=== PATIENT | male | born 1970 | race Caucasian/White ===

== ENCOUNTER 2020-06-22 07:18 | Outpatient (REF) | payer MEDICAID, SELFPAY ==
[2020-06-22 11:27] LABS: Estimated Average Glucose 183 mg/dL
[2020-06-22 11:52] LABS: Anion Gap 13 (12-20); Blood Urea Nitrogen 44 mg/dL (9-16); Calcium 8.8 mg/dL (8.4-10.2); Carbon Dioxide 25 mmol/L (22-29); Chloride 103 mmol/L (96-108); Estimated Glomerular Filt Rate 40; Glucose Random 155 mg/dL (60-115); Potassium 5.2 mmol/l (3.3-5.1); Sodium 136 mmol/L (135-145)
[2020-06-22 11:59] LABS: Creatinine Urine 70.32 mg/dL; Microalbum/Creatinine Ratio Ur 409.5 ug/mg cr
== END 2020-06-22 07:19 | disposition home or self-care (01) ==
LOC: HO.HMGCLDS 07:18
PROVIDERS: PCP Internal Medicine; Visit Provider Internal Medicine
DX: I12.9 Hypertensive chronic kidney disease with stage 1 through stage 4 chronic kidney disease, or unspecified chronic kidney disease (principal); N18.9 Chronic kidney disease, unspecified; E11.22 Type 2 diabetes mellitus with diabetic chronic kidney disease
CPT/HCPCS: 80048; 82043; 83036

== ENCOUNTER 2020-06-29 14:14 | Outpatient (REF) | payer OTHER, SELFPAY | END 2020-06-29 14:15 | disposition home or self-care (01) | LOC: HO.SCI 14:14 | PROVIDERS: Visit Provider Internal Medicine | DX: Z20.828 Contact with and (suspected) exposure to other viral communicable diseases (principal) | CPT/HCPCS: C9803; U0003 ==

== ENCOUNTER 2020-09-20 06:00 | Outpatient (REF) | payer OTHER, SELFPAY ==
[2020-09-20 11:19] LABS: MANUAL DIFF FLAG NO
[2020-09-20 11:34] LABS: Basophils Absolute Auto 0.1 X10*3/uL (0.0-0.2); Basophils Percent Auto 1.7 % (0-2); Eosinophils Absolute Auto 0.4 X10*3/uL (0.0-0.4); Eosinophils Percent Auto 6.9 % (0-4); Hematocrit 42.7 % (42-52); Hemoglobin 14.4 g/dl (14.0-18.0); Imm Gran Abs Auto 0.05 X10*3/uL (0.00-0.03); Imm Gran Pct Auto 0.9 % (0.0-0.4); Lymphocytes Absolute Auto 1.2 X10*3/uL (1.2-4.9); Lymphocytes Percent Auto 21.5 % (20-40); Mean Corpuscular HGB Conc 33.7 g/dl (31.0-36.0); Mean Corpuscular Hemoglobin 29.3 pg (27.0-33.0); Mean Platelet Volume 10.7 fL (9.4-12.4); Monocytes Absolute Auto 0.5 X10*3/uL (0.1-1.2); Monocytes Percent Auto 8.9 % (2-11); Neutrophils Absolute Auto 3.3 X10*3/uL (2.0-8.3); Neutrophils Percent Auto 60.1 % (45-73); Platelet Count 220 X10*3/uL (160-400); Red Blood Count 4.91 X10*6/uL (4.60-5.80); Red Cell Distribution Width 11.9 % (11.0-16.0); White Blood Count 5.4 X10*3/uL (4.8-10.8)
[2020-09-20 11:35] LABS: Estimated Average Glucose 189 mg/dL; Hemoglobin A1c % 8.2 %
[2020-09-20 11:55] LABS: Alanine Aminotransferase 22 U/L (0-40); Albumin Level 4.2 g/dL (3.5-5.0); Alkaline Phosphatase 87 U/L (39-117); Anion Gap 10 (12-20); Aspartate Amino Transferase 18 U/L (5-37); Bilirubin Total 0.6 mg/dL (0.0-1.0); Blood Urea Nitrogen 26 mg/dL (9-16); Calcium 8.6 mg/dL (8.4-10.2); Carbon Dioxide 30 mmol/L (22-29); Chloride 104 mmol/L (96-108); Cholesterol 157 mg/dL; Estimated Glomerular Filt Rate 45; Glucose Random 202 mg/dL (60-115); HDL Cholesterol 49 mg/dL; Iron 84 mcg/dL (45-160); LDL Cholesterol Calculated 98 mg/dl; Percent Iron Saturation 28 % (15-50); Potassium 4.8 mmol/L (3.3-5.1); Sodium 139 mmol/L (135-145); Total Iron Binding Capacity 296 mcg/dL (228-428); Total Protein 6.6 g/dL (6.5-8.0); Triglycerides 50 mg/dL; Unsaturated Iron Binding 212 ug/dL
[2020-09-20 12:16] LABS: Creatinine Urine 60.25 mg/dL; Microalbum/Creatinine Ratio Ur 336.9 ug/mg cr
[2020-09-20 12:18] LABS: Prostate Specific Antigen Scr 0.43 ng/mL (<0.05-4.0)
== END 2020-09-20 06:01 | disposition home or self-care (01) ==
LOC: HO.HMGCLDS 06:00
PROVIDERS: PCP Internal Medicine; Visit Provider Internal Medicine
DX: I12.9 Hypertensive chronic kidney disease with stage 1 through stage 4 chronic kidney disease, or unspecified chronic kidney disease (principal); E11.22 Type 2 diabetes mellitus with diabetic chronic kidney disease; N18.9 Chronic kidney disease, unspecified; Z12.5 Encounter for screening for malignant neoplasm of prostate
CPT/HCPCS: 36415; 80053; 80061; 82043; 83036; 83540; 84153; 85025

== ENCOUNTER 2020-11-13 08:12 | Outpatient (REF) | payer OTHER, SELFPAY ==
--- NOTE | ~2020-11-13 | US_ITS ---
EXAMINATION: US RETROPERITONEAL LIMITED (RENAL ONLY) CLINICAL INFORMATION: Chronic kidney disease. COMPARISON: None TECHNIQUE: Real-time imaging of the kidneys. FINDINGS: RIGHT KIDNEY: 10.0 x 6.7 x 6.6 cm (SAG x AP x TRV). The kidney is normal in size, contour, and echogenicity. Renal cortical thickness is normal. No calculi or focal parenchymal lesions. No hydronephrosis. LEFT KIDNEY: 10.9 x 5.6 x 5.9 cm (SAG x AP x TRV). The kidney is normal in size, contour, and echogenicity. Renal cortical thickness is normal. No calculi or focal parenchymal lesions. No hydronephrosis. US/US renal BI IMPRESSION: Unremarkable sonographic imaging of the kidneys. Specifically, no renal calculi or hydronephrosis bilaterally.
== END 2020-11-13 08:13 | disposition home or self-care (01) ==
LOC: HO.US 08:12
PROVIDERS: PCP Internal Medicine; Visit Provider Internal Medicine Hypertension Specialist
DX: N18.31 Chronic kidney disease, stage 3a (principal)
CPT/HCPCS: 76775

== ENCOUNTER 2021-01-01 06:16 | Outpatient (REF) | payer OTHER, SELFPAY ==
[2021-01-01 12:03] LABS: Estimated Average Glucose 200 mg/dL; Hemoglobin A1c % 8.6 %
[2021-01-01 12:07] LABS: Alanine Aminotransferase 25 U/L (0-40); Albumin Level 4.2 g/dL (3.5-5.0); Alkaline Phosphatase 93 U/L (39-117); Anion Gap 12 (12-20); Aspartate Amino Transferase 19 U/L (5-37); Bilirubin Total 0.7 mg/dL (0.0-1.0); Blood Urea Nitrogen 32 mg/dL (9-16); Calcium 8.9 mg/dL (8.4-10.2); Carbon Dioxide 26 mmol/L (22-29); Chloride 101 mmol/L (96-108); Estimated Glomerular Filt Rate 51; Glucose Random 227 mg/dL (60-115); Potassium 4.7 mmol/L (3.3-5.1); Sodium 134 mmol/L (135-145); Total Protein 6.5 g/dL (6.5-8.0)
[2021-01-01 12:11] LABS: Creatinine Urine 46.58 mg/dL; Microalbum/Creatinine Ratio Ur 210.3 ug/mg cr
== END 2021-01-01 06:17 | disposition home or self-care (01) ==
LOC: HO.HMGCLDS 06:16
PROVIDERS: PCP Internal Medicine; Visit Provider Internal Medicine
DX: I12.9 Hypertensive chronic kidney disease with stage 1 through stage 4 chronic kidney disease, or unspecified chronic kidney disease (principal); N18.9 Chronic kidney disease, unspecified; E11.22 Type 2 diabetes mellitus with diabetic chronic kidney disease
CPT/HCPCS: 36415; 80053; 82043; 83036

== ENCOUNTER 2021-03-28 06:04 | Outpatient (REF) | payer OTHER, SELFPAY ==
[2021-03-28 11:48] LABS: Anion Gap 15 (12-20); Blood Urea Nitrogen 35 mg/dL (9-16); Calcium 9.5 mg/dL (8.4-10.2); Carbon Dioxide 22 mmol/L (22-29); Chloride 107 mmol/L (96-108); Estimated Glomerular Filt Rate 46; Glucose Fasting 130 mg/dL (60-99); Potassium 4.4 mmol/L (3.3-5.1); Sodium 140 mmol/L (135-145)
[2021-03-28 12:05] LABS: Estimated Average Glucose 174 mg/dL; Hemoglobin A1c % 7.7 %
== END 2021-03-28 06:05 | disposition home or self-care (01) ==
LOC: HO.HMGCLDS 06:04
PROVIDERS: PCP Internal Medicine; Visit Provider Internal Medicine
DX: E11.22 Type 2 diabetes mellitus with diabetic chronic kidney disease (principal); I12.9 Hypertensive chronic kidney disease with stage 1 through stage 4 chronic kidney disease, or unspecified chronic kidney disease; N18.9 Chronic kidney disease, unspecified
CPT/HCPCS: 36415; 80048; 83036

== ENCOUNTER 2021-05-01 06:02 | Outpatient (REF) | payer OTHER, SELFPAY ==
[2021-05-01 11:58] LABS: Alanine Aminotransferase 32 U/L (0-40); Albumin Level 4.3 g/dL (3.5-5.0); Alkaline Phosphatase 85 U/L (39-117); Anion Gap 12 (12-20); Aspartate Amino Transferase 26 U/L (5-37); Bilirubin Total 0.6 mg/dL (0.0-1.0); Blood Urea Nitrogen 36 mg/dL (9-16); Calcium 9.6 mg/dL (8.4-10.2); Carbon Dioxide 24 mmol/L (22-29); Chloride 106 mmol/L (96-108); Estimated Glomerular Filt Rate 42; Glucose Random 169 mg/dL (60-115); Potassium 4.9 mmol/L (3.3-5.1); Sodium 137 mmol/L (135-145); Total Protein 6.7 g/dL (6.5-8.0)
[2021-05-01 12:10] LABS: Creatinine Urine 58.78 mg/dL; Protein/Creatinine Ratio, Ur 0.22 (<0.2); Total Protein Urine Random 13 mg/dL (<12)
== END 2021-05-01 06:03 | disposition home or self-care (01) ==
LOC: HO.HMGCLDS 06:02
PROVIDERS: PCP Internal Medicine; Visit Provider Internal Medicine Hypertension Specialist
DX: I12.9 Hypertensive chronic kidney disease with stage 1 through stage 4 chronic kidney disease, or unspecified chronic kidney disease (principal); N18.9 Chronic kidney disease, unspecified
CPT/HCPCS: 36415; 80053; 84156

== ENCOUNTER 2021-06-19 11:13 | Emergency (ER) | payer OTHER, SELFPAY ==
[2021-06-19 11:48] VITALS: BP 154/75; PULSE 65; RESP 16; TEMP 36.4; O2SAT 97; BMI 29.9
--- NOTE | 2021-06-19 13:30 | ED.EAR ---
HPI - Ear Problem General Chief complaint: Ear Problems Stated complaint: hearing loss Time Seen by Provider: 06/19/21 13:30 Source: patient Mode of arrival: ambulatory Limitations: no limitations History of Present Illness HPI Narrative: 51-year-old male came in for decreased hearing in the left ear. Patient has been wearing hearing aid in the left ear for about 10 years, had a recent hearing testing patient need knee you hearing aid, patient is scheduled to see an ENT doctor in few weeks, patient is complaining of decreased hearing in the left ear probably because it is blocked with wax. Patient otherwise declined any pain, no fever, no chills. Related Data Allergies Allergy/AdvReac Type Severity Reaction Status Date / Time No Known Allergies Allergy Unverified 04/26/20 15:08 [No Known Allergies*] Review of Systems Review of Systems: All other systems are reviewed and are negative Constitutional: Reports as per HPI and Reports no additional constitutional complaints Eyes: Reports as per HPI and Reports no additional eye complaints Reports system reviewed and no additional complaints, except as documented Cardiovascular: Reports as per HPI and Reports no additional cardiovascular complaints Respiratory: Reports as per HPI and Reports no additional respiratory complaints Gastrointestinal: Reports as per HPI and Reports no additional gastrointestinal complaints Genitourinary: Reports no additional female genitourinary complaints Musculoskeletal: Reports no additional musculoskeletal complaints Skin/Breast: Reports system reviewed and no additional complaints, except as docu Psychiatric: Reports no additional psychiatric complaints Endocrine: Reports no additional endocrine complaints Hematologic/Lymphatic: Reports no additional hematologic/lymphatic complaints Allergic/Immunologic: Reports no additional allergic/immunologic complaints Reports system reviewed and no additional complaints, except as documented and Reports Abnormal speech present [facility] Social History Social History Advance Directives: No Advance Directives Information Provided: Yes Physical Exam Vital Signs: Vital Signs: Last Vital Signs Temp 97.6 F 06/19/21 11:48 Pulse 65 06/19/21 11:48 Resp 16 06/19/21 11:48 BP 154/75 H 06/19/21 11:48 Pulse Ox 97 06/19/21 11:48 Body Mass Index 29.9 Vital signs have been reviewed as appeared to be correct. Blood pressure normal. Heart rate normal. Respiration rate normal. Temperature normal. Oxygen saturation normal. Appearance: Alert. Oriented X3. No acute distress. Head: Normal external exam. Normocephalic. Atraumatic. No Orsen signs noted. No raccoon eyes noted Eyes: PERRLA. EOMI. Conjunctiva and sclera normal. Eyelids normal. ENT: TM's Normal. Pharynx normal. Mild cerumen in a left auditory canal, Uvula midline. Moist mucous membranes. No trismus noted. No drooling noted. No muffled voice noted. Neck: Normal inspection. Neck supple. FROM. No adenopathy. Thyroid Normal. No meningeal signs. No neck mass noted. CVS: Normal heart rate and rhythm. Heart sound normal. No murmurs noted. Pulses normal throughout. Respiratory: No respiratory distress. Painless inspiration. Breath sounds normal. No wheezes/rales/rhonchi noted. Chest nontender. No accessory muscle usage noted or decreased air movement noted. Abdomen: Soft and nontender. Bowel sounds normal in all 4 quadrants. No distention noted. No organomegaly noted. No visible injury noted. Back: No CVA tenderness. Full range of motion noted. Skin: Skin warm and dry. Normal skin color. Normal skin turgor. No rashes/lesions/lacerations noted. Extremities: No lower extremity edema. Extremities exhibit normal range of motion. Extremities nontender. Neuro: Oriented X 3. Cranial nerve exam: II-XII are grossly intact No motor deficit. No sensory deficit. Reflexes normal. Course Course Course Narrative: 51-year-old male with a healing problem, patient wear hearing aid in the left ear for the past 9-10 years, patient had a recent hearing test and scheduled to see ENT doctor in 2 weeks for new hearing aid, patient had irrigation in the ED with slight improvement of his hearing with the hearing aid. Patient was instructed to follow-up with ENT as scheduled. Procedures Ear Wax Removal Left Ear: Results: Re-examined: some cerumen remains TM Examination: TM(s) intact, normal appearance Ear Canal Exam: atraumatic Patient Tolerated Procedure: no complications Complications: no problems Technique: ear canal irrigated Discharge Plan Discharge Clinical Impression: Cerumen impaction Patient Disposition: Home, Self-Care Instructions: Hearing Loss (ED) Additional Instructions: See your ENT doctor as scheduled. Referrals: Justin Estrada MD [Primary Care Provider] - 2 days
== END 2021-06-19 13:56 | disposition home or self-care (01) ==
PROVIDERS: Emergency Provider Emergency Medicine; PCP Internal Medicine
DX: H61.22 Impacted cerumen, left ear (principal)
CPT/HCPCS: 69209; 99283

== ENCOUNTER 2021-08-14 15:42 | Outpatient (REF) | payer OTHER, SELFPAY ==
[2021-08-14 16:09] LABS: COVID-19 Test Positive (Negative); IDNOW Serial# 9DD0AD1C
== END 2021-08-14 15:43 | disposition home or self-care (01) ==
LOC: HO.LNP 15:42
PROVIDERS: Visit Provider Internal Medicine
DX: R51.9 Headache, unspecified (principal); Z20.822 Contact with and (suspected) exposure to COVID-19
CPT/HCPCS: 87635

== ENCOUNTER 2021-09-03 06:02 | Outpatient (REF) | payer OTHER, SELFPAY ==
[2021-09-03 12:09] LABS: Creatinine Urine 74.39 mg/dL; Protein/Creatinine Ratio, Ur 0.51 (<0.2); Total Protein Urine Random 38 mg/dL (<12)
[2021-09-03 12:10] LABS: Alanine Aminotransferase 22 U/L (0-40); Albumin Level 4.1 g/dL (3.5-5.0); Alkaline Phosphatase 86 U/L (39-117); Anion Gap 11 (12-20); Aspartate Amino Transferase 16 U/L (5-37); Bilirubin Total 0.8 mg/dL (0.0-1.0); Blood Urea Nitrogen 25 mg/dL (9-16); Calcium 9.5 mg/dL (8.4-10.2); Carbon Dioxide 26 mmol/L (22-29); Chloride 107 mmol/L (96-108); Estimated Glomerular Filt Rate 46; Glucose Random 257 mg/dL (60-115); Potassium 4.6 mmol/L (3.3-5.1); Sodium 139 mmol/L (135-145); Total Protein 6.6 g/dL (6.5-8.0)
== END 2021-09-03 06:03 | disposition home or self-care (01) ==
LOC: HO.HMGCLDS 06:02
PROVIDERS: Visit Provider Internal Medicine Hypertension Specialist
DX: N18.32 Chronic kidney disease, stage 3b (principal)
CPT/HCPCS: 36415; 80053; 84156

== ENCOUNTER 2021-09-17 11:28 | Outpatient (REF) | payer OTHER, SELFPAY ==
[2021-09-17 13:59] LABS: MANUAL DIFF FLAG NO
[2021-09-17 14:05] LABS: Basophils Absolute Auto 0.1 X10*3/uL (0.0-0.2); Basophils Percent Auto 0.9 % (0-2); Eosinophils Absolute Auto 0.2 X10*3/uL (0.0-0.4); Eosinophils Percent Auto 2.6 % (0-4); Hematocrit 41.9 % (42.0-52.0); Hemoglobin 14.7 g/dl (14.0-18.0); Imm Gran Abs Auto 0.07 X10*3/uL (0.00-0.03); Imm Gran Pct Auto 0.9 % (0.0-0.4); Lymphocytes Absolute Auto 1.4 X10*3/uL (1.2-4.9); Lymphocytes Percent Auto 17.8 % (20-40); Mean Corpuscular HGB Conc 35.1 g/dl (31.0-36.0); Mean Corpuscular Hemoglobin 29.8 pg (27.0-33.0); Mean Corpuscular Volume 84.8 fL (80.0-98.0); Mean Platelet Volume 11.2 fL (9.4-12.4); Monocytes Absolute Auto 0.6 X10*3/uL (0.1-1.2); Neutrophils Absolute Auto 5.6 x10*3/uL (2.0-8.3); Neutrophils Percent Auto 69.8 % (45-73); Platelet Count 227 X10*3/uL (160-400); Red Blood Count 4.94 X10*6/uL (4.60-5.80); Red Cell Distribution Width 12.2 % (11.0-16.0)
[2021-09-17 14:13] LABS: Estimated Average Glucose 189 mg/dL; Hemoglobin A1c % 8.2 %
[2021-09-17 14:26] LABS: Alanine Aminotransferase 22 U/L (0-40); Albumin Level 4.3 g/dL (3.5-5.0); Alkaline Phosphatase 87 U/L (39-117); Anion Gap 13 (12-20); Aspartate Amino Transferase 19 U/L (5-37); Bilirubin Total 0.9 mg/dL (0.0-1.0); Blood Urea Nitrogen 30 mg/dL (9-16); Calcium 9.5 mg/dL (8.4-10.2); Carbon Dioxide 25 mmol/L (22-29); Chloride 104 mmol/L (96-108); Estimated Glomerular Filt Rate 42; Glucose Random 122 mg/dL (60-115); Potassium 4.4 mmol/L (3.3-5.1); Sodium 138 mmol/L (135-145); Total Protein 6.7 g/dL (6.5-8.0)
[2021-09-17 14:49] LABS: Creatinine Urine 64.03 mg/dL; Microalbum/Creatinine Ratio Ur 459.1 ug/mg cr
== END 2021-09-17 11:29 | disposition home or self-care (01) ==
LOC: HO.HMGCLDS 11:28
PROVIDERS: Visit Provider Internal Medicine
DX: I12.9 Hypertensive chronic kidney disease with stage 1 through stage 4 chronic kidney disease, or unspecified chronic kidney disease (principal); N18.9 Chronic kidney disease, unspecified; E11.22 Type 2 diabetes mellitus with diabetic chronic kidney disease
CPT/HCPCS: 36415; 80053; 82043; 83036; 85025

== ENCOUNTER 2021-12-25 06:06 | Outpatient (REF) | payer OTHER, SELFPAY ==
[2021-12-25 11:33] LABS: MANUAL DIFF FLAG NO
[2021-12-25 11:46] LABS: Basophils Absolute Auto 0.1 X10*3/uL (0.0-0.2); Basophils Percent Auto 1.2 % (0-2); Eosinophils Absolute Auto 0.3 X10*3/uL (0.0-0.4); Eosinophils Percent Auto 5.2 % (0-4); Hematocrit 40.7 % (42.0-52.0); Hemoglobin 14.2 g/dl (14.0-18.0); Imm Gran Abs Auto 0.05 X10*3/uL (0.00-0.03); Imm Gran Pct Auto 0.9 % (0.0-0.4); Lymphocytes Absolute Auto 1.1 X10*3/uL (1.2-4.9); Lymphocytes Percent Auto 18.6 % (20-40); Mean Corpuscular HGB Conc 34.9 g/dl (31.0-36.0); Mean Corpuscular Hemoglobin 29.7 pg (27.0-33.0); Mean Corpuscular Volume 85.1 fL (80.0-98.0); Mean Platelet Volume 10.8 fL (9.4-12.4); Monocytes Absolute Auto 0.5 X10*3/uL (0.1-1.2); Monocytes Percent Auto 8.7 % (2-11); Neutrophils Absolute Auto 3.8 x10*3/uL (2.0-8.3); Neutrophils Percent Auto 65.4 % (45-73); Platelet Count 201 X10*3/uL (160-400); Red Blood Count 4.78 X10*6/uL (4.60-5.80); Red Cell Distribution Width 12.3 % (11.0-16.0); White Blood Count 5.8 X10*3/uL (4.8-10.8)
[2021-12-25 11:50] LABS: Estimated Average Glucose 186 mg/dL; Hemoglobin A1c % 8.1 %
[2021-12-25 11:56] LABS: Alanine Aminotransferase 30 U/L (0-40); Albumin Level 4.2 g/dL (3.5-5.0); Alkaline Phosphatase 81 U/L (39-117); Anion Gap 11 (12-20); Aspartate Amino Transferase 22 U/L (5-37); Bilirubin Total 0.8 mg/dL (0.0-1.0); Blood Urea Nitrogen 26 mg/dL (9-16); Calcium 9.4 mg/dL (8.4-10.2); Carbon Dioxide 27 mmol/L (22-29); Chloride 102 mmol/L (96-108); Cholesterol 145 mg/dL; Estimated Glomerular Filt Rate 47; Glucose Random 173 mg/dL (60-115); HDL Cholesterol 52 mg/dL; LDL Cholesterol Calculated 81 mg/dl; Potassium 5.7 mmol/L (3.3-5.1); Sodium 134 mmol/L (135-145); Total Protein 6.6 g/dL (6.5-8.0); Triglycerides 63 mg/dL
[2021-12-25 12:11] LABS: Creatinine Urine 32.69 mg/dL; Microalbum/Creatinine Ratio Ur 776.9 ug/mg cr
[2021-12-25 12:20] LABS: Prostate Specific Antigen 0.32 ng/mL (<0.05-4.0)
== END 2021-12-25 06:07 | disposition home or self-care (01) ==
LOC: HO.HMGCLDS 06:06
PROVIDERS: Visit Provider Internal Medicine
DX: Z12.5 Encounter for screening for malignant neoplasm of prostate (principal); I12.9 Hypertensive chronic kidney disease with stage 1 through stage 4 chronic kidney disease, or unspecified chronic kidney disease; N18.9 Chronic kidney disease, unspecified; E11.22 Type 2 diabetes mellitus with diabetic chronic kidney disease; E78.00 Pure hypercholesterolemia, unspecified; R35.1 Nocturia
CPT/HCPCS: 36415; 80053; 80061; 82043; 83036; 84153; 85025

== ENCOUNTER 2022-03-21 13:58 | Outpatient (REF) | payer OTHER, SELFPAY ==
[2022-03-21 15:22] LABS: Alanine Aminotransferase 28 U/L (0-40); Albumin Level 4.4 g/dL (3.5-5.0); Alkaline Phosphatase 76 U/L (39-117); Anion Gap 16 (12-20); Aspartate Amino Transferase 24 U/L (5-37); Bilirubin Total 0.9 mg/dL (0.0-1.0); Blood Urea Nitrogen 35 mg/dL (9-16); Calcium 9.3 mg/dL (8.4-10.2); Carbon Dioxide 25 mmol/L (22-29); Chloride 102 mmol/L (96-108); Estimated Average Glucose 192 mg/dL; Estimated Glomerular Filt Rate 39; Glucose Random 164 mg/dL (60-115); Hemoglobin A1c % 8.3 %; Potassium 4.6 mmol/L (3.3-5.1); Sodium 138 mmol/L (135-145); Total Protein 6.7 g/dL (6.5-8.0)
== END 2022-03-21 13:59 | disposition home or self-care (01) ==
LOC: HO.LAB 13:58
PROVIDERS: PCP Internal Medicine; Visit Provider Internal Medicine
DX: I12.9 Hypertensive chronic kidney disease with stage 1 through stage 4 chronic kidney disease, or unspecified chronic kidney disease (principal); N18.9 Chronic kidney disease, unspecified; E11.22 Type 2 diabetes mellitus with diabetic chronic kidney disease
CPT/HCPCS: 36415; 80053; 83036

== ENCOUNTER 2022-04-22 06:59 | Outpatient (REF) | payer OTHER, SELFPAY ==
[2022-04-22 11:50] LABS: Alanine Aminotransferase 29 U/L (0-40); Albumin Level 4.1 g/dL (3.5-5.0); Alkaline Phosphatase 90 U/L (39-117); Anion Gap 13 (12-20); Aspartate Amino Transferase 21 U/L (5-37); Bilirubin Total 0.8 mg/dL (0.0-1.0); Blood Urea Nitrogen 34 mg/dL (9-16); Calcium 8.9 mg/dL (8.4-10.2); Carbon Dioxide 26 mmol/L (22-29); Chloride 101 mmol/L (96-108); Estimated Glomerular Filt Rate 40; Glucose Random 282 mg/dL (60-115); Hemoglobin 14.2 g/dl (14.0-18.0); Mean Corpuscular HGB Conc 35.5 g/dl (31.0-36.0); Mean Corpuscular Hemoglobin 29.8 pg (27.0-33.0); Mean Corpuscular Volume 83.9 fL (80.0-98.0); Mean Platelet Volume 10.7 fL (9.4-12.4); Platelet Count 208 X10*3/uL (160-400); Potassium 5.3 mmol/L (3.3-5.1); Red Blood Count 4.77 X10*6/uL (4.60-5.80); Red Cell Distribution Width 11.9 % (11.0-16.0); Sodium 135 mmol/L (135-145); Total Protein 6.5 g/dL (6.5-8.0); White Blood Count 6.7 X10*3/uL (4.8-10.8)
== END 2022-04-22 07:00 | disposition home or self-care (01) ==
LOC: HO.HMGCLDS 06:59
PROVIDERS: PCP Internal Medicine; Visit Provider Internal Medicine Hypertension Specialist
DX: E11.22 Type 2 diabetes mellitus with diabetic chronic kidney disease (principal); N18.31 Chronic kidney disease, stage 3a
CPT/HCPCS: 36415; 80053; 85027

== ENCOUNTER 2022-09-24 06:07 | Outpatient (REF) | payer OTHER, SELFPAY ==
[2022-09-24 12:12] LABS: Anion Gap 11 (12-20); Blood Urea Nitrogen 32 mg/dL (9-16); Calcium 9.1 mg/dL (8.4-10.2); Carbon Dioxide 24 mmol/L (22-29); Chloride 106 mmol/L (96-108); Estimated Glomerular Filt Rate 43; Glucose Random 115 mg/dL (60-115); Potassium 4.3 mmol/L (3.3-5.1); Sodium 137 mmol/L (135-145)
[2022-09-24 12:13] LABS: Creatinine Urine 28.39 mg/dL; Microalbum/Creatinine Ratio Ur 285.3 ug/mg cr
[2022-09-24 12:26] LABS: Estimated Average Glucose 197 mg/dL; Hemoglobin A1c % 8.5 %
== END 2022-09-24 06:08 | disposition home or self-care (01) ==
LOC: HO.HMGCLDS 06:07
PROVIDERS: Visit Provider Internal Medicine
DX: I12.9 Hypertensive chronic kidney disease with stage 1 through stage 4 chronic kidney disease, or unspecified chronic kidney disease (principal); E11.22 Type 2 diabetes mellitus with diabetic chronic kidney disease; N18.9 Chronic kidney disease, unspecified
CPT/HCPCS: 36415; 80048; 82043; 83036

== ENCOUNTER 2022-11-19 13:36 | Outpatient (REF) | payer OTHER, SELFPAY ==
--- NOTE | ~2022-11-19 | XR_ITS ---
EXAMINATION: XR FOOT, RIGHT CLINICAL INFORMATION: Pain COMPARISON: None available. TECHNIQUE: Three views of the right foot. FINDINGS: Atherosclerotic vascular calcification. No acute fracture or dislocation. Joint spaces are maintained. No joint effusion. XR/XR foot RT min 3V IMPRESSION: No acute osseous abnormality.
== END 2022-11-19 13:37 | disposition home or self-care (01) ==
LOC: HO.XRAY 13:36
PROVIDERS: PCP Internal Medicine; Visit Provider Internal Medicine
DX: M79.671 Pain in right foot (principal)
CPT/HCPCS: 73630

== ENCOUNTER 2022-12-23 06:01 | Outpatient (REF) | payer OTHER, SELFPAY ==
[2022-12-23 11:10] LABS: MANUAL DIFF FLAG NO
[2022-12-23 11:40] LABS: Basophils Absolute Auto 0.1 X10*3/uL (0.0-0.2); Basophils Percent Auto 1.4 % (0-2); Eosinophils Absolute Auto 0.3 X10*3/uL (0.0-0.4); Hematocrit 37.8 % (42.0-52.0); Hemoglobin 13.1 g/dl (14.0-18.0); Imm Gran Abs Auto 0.06 X10*3/uL (0.00-0.03); Imm Gran Pct Auto 1.1 % (0.0-0.4); Lymphocytes Percent Auto 18.3 % (20-40); Mean Corpuscular HGB Conc 34.7 g/dl (31.0-36.0); Mean Corpuscular Hemoglobin 29.6 pg (27.0-33.0); Mean Corpuscular Volume 85.3 fL (80.0-98.0); Mean Platelet Volume 10.5 fL (9.4-12.4); Monocytes Absolute Auto 0.5 X10*3/uL (0.1-1.2); Monocytes Percent Auto 9.5 % (2-11); Neutrophils Absolute Auto 3.6 x10*3/uL (2.0-8.3); Neutrophils Percent Auto 64.7 % (45-73); Platelet Count 210 X10*3/uL (160-400); Red Blood Count 4.43 X10*6/uL (4.60-5.80); Red Cell Distribution Width 12.3 % (11.0-16.0); White Blood Count 5.6 X10*3/uL (4.8-10.8)
[2022-12-23 11:47] LABS: Estimated Average Glucose 189 mg/dL; Hemoglobin A1c % 8.2 %
[2022-12-23 12:05] LABS: Alanine Aminotransferase 26 U/L (0-40); Alkaline Phosphatase 84 U/L (39-117); Anion Gap 14 (12-20); Aspartate Amino Transferase 20 U/L (5-37); Bilirubin Total 0.7 mg/dL (0.0-1.0); Blood Urea Nitrogen 30 mg/dL (9-16); Calcium 8.8 mg/dL (8.4-10.2); Carbon Dioxide 24 mmol/L (22-29); Chloride 103 mmol/L (96-108); Cholesterol 129 mg/dL; Estimated Glomerular Filt Rate 46; Glucose Fasting 133 mg/dL (60-99); HDL Cholesterol 46 mg/dL; LDL Cholesterol Calculated 73 mg/dl; Potassium 4.7 mmol/L (3.3-5.1); Prostate Specific Antigen 0.39 ng/mL (<0.05-4.0); Sodium 136 mmol/L (135-145); Triglycerides 50 mg/dL; Vitamin D 25-OH Total 57.6 ng/mL (>30)
[2022-12-23 12:18] LABS: Creatinine Urine 64.62 mg/dL; Microalbum/Creatinine Ratio Ur 170.2 ug/mg cr
[2022-12-24 13:14] LABS: Calcium (PTHI) 8.7 mg/dL (8.6-10.3); PTHI 46 pg/mL (16-77)
== END 2022-12-23 06:02 | disposition home or self-care (01) ==
LOC: HO.HMGCLDS 06:01
PROVIDERS: PCP Internal Medicine; Visit Provider Internal Medicine
DX: Z00.00 Encounter for general adult medical examination without abnormal findings (principal); Z12.5 Encounter for screening for malignant neoplasm of prostate; E11.9 Type 2 diabetes mellitus without complications
CPT/HCPCS: 36415; 80053; 80061; 82043; 82306; 83036; 83970; 84153; 85025

== ENCOUNTER 2023-02-26 06:09 | Outpatient (REF) | payer OTHER, SELFPAY ==
[2023-02-26 11:12] LABS: MANUAL DIFF FLAG NO
[2023-02-26 11:53] LABS: Basophils Absolute Auto 0.1 X10*3/uL (0.0-0.2); Basophils Percent Auto 1.4 % (0-2); Eosinophils Absolute Auto 0.3 X10*3/uL (0.0-0.4); Eosinophils Percent Auto 4.4 % (0-4); Hematocrit 43.4 % (42.0-52.0); Hemoglobin 14.8 g/dl (14.0-18.0); Imm Gran Abs Auto 0.07 X10*3/uL (0.00-0.03); Lymphocytes Absolute Auto 1.3 X10*3/uL (1.2-4.9); Lymphocytes Percent Auto 17.8 % (20-40); Mean Corpuscular HGB Conc 34.1 g/dl (31.0-36.0); Mean Corpuscular Hemoglobin 29.3 pg (27.0-33.0); Mean Corpuscular Volume 85.9 fL (80.0-98.0); Mean Platelet Volume 10.8 fL (9.4-12.4); Monocytes Absolute Auto 0.7 X10*3/uL (0.1-1.2); Monocytes Percent Auto 9.8 % (2-11); Neutrophils Absolute Auto 4.8 x10*3/uL (2.0-8.3); Neutrophils Percent Auto 65.6 % (45-73); Platelet Count 240 X10*3/uL (160-400); Red Blood Count 5.05 X10*6/uL (4.60-5.80); Red Cell Distribution Width 12.1 % (11.0-16.0); White Blood Count 7.3 X10*3/uL (4.8-10.8)
[2023-02-26 13:57] LABS: Anion Gap 13 (12-20); Blood Urea Nitrogen 36 mg/dL (9-16); Carbon Dioxide 27 mmol/L (22-29); Chloride 104 mmol/L (96-108); Estimated Glomerular Filt Rate 40; Glucose Random 159 mg/dL (60-115); Potassium 5.7 mmol/L (3.3-5.1); Sodium 138 mmol/L (135-145)
== END 2023-02-26 06:10 | disposition home or self-care (01) ==
LOC: HO.LAB 06:09
PROVIDERS: Visit Provider Internal Medicine Hypertension Specialist
DX: N18.32 Chronic kidney disease, stage 3b (principal)
CPT/HCPCS: 36415; 80048; 85025

== ENCOUNTER 2023-04-06 06:07 | Outpatient (REF) | payer OTHER, SELFPAY ==
[2023-04-06 12:10] LABS: Estimated Average Glucose 180 mg/dL; Hemoglobin A1c % 7.9 % (<6.0)
[2023-04-06 12:33] LABS: Alanine Aminotransferase 17 U/L (0-40); Albumin Level 4.1 g/dL (3.5-5.0); Alkaline Phosphatase 70 U/L (39-117); Anion Gap 10 (12-20); Aspartate Amino Transferase 16 U/L (5-37); Bilirubin Total 0.6 mg/dL (0.0-1.0); Blood Urea Nitrogen 28 mg/dL (9-16); Calcium 9.1 mg/dL (8.4-10.2); Carbon Dioxide 27 mmol/L (22-29); Chloride 106 mmol/L (96-108); Estimated Glomerular Filt Rate 49; Glucose Random 182 mg/dL (60-115); Potassium 4.6 mmol/L (3.3-5.1); Sodium 138 mmol/L (135-145); Total Protein 6.6 g/dL (6.5-8.0)
[2023-04-06 13:08] LABS: Creatinine Urine 51.38 mg/dL; Microalbum/Creatinine Ratio Ur 136.2 ug/mg cr (<30)
== END 2023-04-06 06:08 | disposition home or self-care (01) ==
LOC: HO.HMGCLDS 06:07
PROVIDERS: Absent Provider Internal Medicine Hypertension Specialist; PCP Internal Medicine; Visit Provider Internal Medicine
DX: E11.9 Type 2 diabetes mellitus without complications (principal); N18.9 Chronic kidney disease, unspecified
CPT/HCPCS: 36415; 80053; 82043; 83036

== ENCOUNTER 2023-04-16 08:52 | Outpatient (REF) | payer OTHER, SELFPAY ==
--- NOTE | ~2023-04-16 | XR_ITS ---
EXAMINATION: XR SHOULDER, LEFT CLINICAL INFORMATION: Left shoulder pain. COMPARISON: None available. TECHNIQUE: Four views of the left shoulder. FINDINGS: There is mild acromioclavicular osteoarthritis. Glenohumeral joint is well preserved. No fracture. Alignment is anatomic. Soft tissues are normal with no abnormal calcifications. XR/XR shoulder LT min 2V IMPRESSION: Mild acromioclavicular osteoarthritis. No acute fractures or malalignment.
== END 2023-04-16 08:53 | disposition home or self-care (01) ==
LOC: HO.XRAY 08:52
PROVIDERS: PCP Internal Medicine; Visit Provider Internal Medicine
DX: M25.512 Pain in left shoulder (principal)
CPT/HCPCS: 73030

== ENCOUNTER 2023-06-25 12:02 | Outpatient (REF) | payer OTHER, SELFPAY ==
--- NOTE | ~2023-06-25 | XR_ITS ---
EXAMINATION: XR CHEST 2 VIEWS CLINICAL INFORMATION: Cough and congestion. COMPARISON: Chest radiograph dated 10/19/2019. TECHNIQUE: Frontal and lateral views of the chest were obtained. FINDINGS: The heart, great vessels, pulmonary vasculature and mediastinum are normal. The lungs show no focal infiltrate, effusion or pneumothorax. There is no acute osseous abnormality. XR/XR chest 2V IMPRESSION: No active cardiopulmonary disease.
== END 2023-06-25 12:03 | disposition home or self-care (01) ==
LOC: HO.XRAY 12:02
PROVIDERS: PCP Internal Medicine; Visit Provider Internal Medicine
DX: R05.9 Cough, unspecified (principal)
CPT/HCPCS: 71046

== ENCOUNTER 2023-06-30 11:02 | Outpatient (AMB) | payer OTHER, SELFPAY ==
--- NOTE | 2023-06-30 11:20 | HO.NEPHOV_ITS ---
HPI HPI Comments History of Present Illness Details Juan José is a middle-aged man with a history of diabetes mellitus and CKD. From renal standpoint is doing very well. He has CKD with a baseline creatinine 1.6 mg/dL. Juan José has a history of diabetes mellitus for more than 10 years complicated by retinopathy. 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 History of hypertension for more than 10 years which has been well controlled as well. Renal ultrasonogram showed a large postvoid residual back in 2018. However repeat renal ultrasonogram was unremarkable in 2020. In 2019 lisinopril was decreased by 50% due to elevation in creatinine and relatively low blood pressure. Since then serum creatinine stable and blood pressure has been well controlled as well. Recently he was diagnosed with pneumonia and has completed a course of Zithromax. Today he has no cough no shortness of breath. In no specific complaints today. [facility] (Updated 06/30/23 @ 11:24 by Deedee Zavala MA) Alcohol intake: never Patient Tobacco Use Status: Never used Tobacco e-Cigarette/Vaping Use: Never Used Vital Signs 06/30/23 11:26 Height 5 ft 9 in Weight 185 lb BMI 27.3 BP 120/62 Blood Pressure Location Rt brachial Position Sitting Pulse 61 Pulse Source Pulse Oximeter Pulse Oximetry (%) 100 Physical Exam Vital Signs: Last Vital Signs Pulse 61 06/30/23 11:26 BP 120/62 06/30/23 11:26 Pulse Ox 100 06/30/23 11:26 BMI result Body Mass Index 27.3 Const General: comfortable Nutritional Appearance: well nourished Orientation/consciousness: patient oriented x3 HEENT Head: No normal to inspection Mouth: moist mucous membranes Neck Neck: Yes supple and Yes no JVD Resp Auscultation: clear to auscultation bilaterally, no rales and rub present Cardio Jugular venous distension: no JVD Palpation: no palpable S3 and no palpable S4 Heart sounds: no rubs GI Palpation (GI): Soft to palpation and nontender Percussion: No Fluid wave present General: Yes no CVA tenderness Back/Spine/Pelvis Back: no CVA tenderness Skin General skin exam: no rashes or lesions noted Neuro General: patient oriented x3 Extrem General: Yes no pedal edema and No clubbing Results Reviewed Results Reviewed: All labs was reviewed Assessment & Plan Assessment & Plan (1) CKD (chronic kidney disease) stage 3, GFR 30-59 ml/min: Code(s): N18.30 - Chronic kidney disease, stage 3 unspecified Plan: CKD 3 in a setting of longstanding diabetes mellitus hypertension. Renal function stable at this time. Goal is to slow the proximal disease. Continue with Shravan inhibitor for renal protection. He will benefit from an SGLT 2 inhibitor. (2) HTN (hypertension): Code(s): I10 - Essential (primary) hypertension Plan: Blood pressure is well controlled. Continue with current antihypertensive regimen. Discussed low-sodium diet. (3) Diabetes mellitus with chronic kidney disease: Code(s): E11.22 - Type 2 diabetes mellitus with diabetic chronic kidney disease Plan: Goal is to maintain A1c less than 7%. Again we discuss the importance of diet (4) Hyperkalemia: Code(s): E87.5 - Hyperkalemia Plan: History of hyperkalemia in the setting of chronic kidney disease and continues of Shravan inhibitor. After lowering the reason potassium potassium has improved. He should stay on low-potassium diet. I will recheck the serum aldolase today Orders: Orders Blood Urea Nitrogen Today E11.22 - Type 2 diabetes mellitus with diabetic chronic kidney disease, I10 - Essential (primary) hypertension Calcium Today E11.22 - Type 2 diabetes mellitus with diabetic chronic kidney disease, I10 - Essential (primary) hypertension Electrolytes Today E11.22 - Type 2 diabetes mellitus with diabetic chronic kidney disease, I10 - Essential (primary) hypertension Creatinine Today E11.22 - Type 2 diabetes mellitus with diabetic chronic kidney disease, I10 - Essential (primary) hypertension Coding Level of Care Code Est Pt Level 4 (67992) Diagnoses CKD (chronic kidney disease) stage 3, GFR 30-59 ml/min N18.30 HTN (hypertension) I10 Diabetes mellitus with chronic kidney disease E11.22 Hyperkalemia E87.5
[2023-06-30 11:26] VITALS: BP 120/62; PULSE 61; O2SAT 100; BMI 27.3
== END 2023-06-30 11:44 | disposition home or self-care (01) ==
PROVIDERS: PCP Internal Medicine; Visit Provider Internal Medicine Hypertension Specialist
DX: N18.30 Chronic kidney disease, stage 3 unspecified (principal); I12.9 Hypertensive chronic kidney disease with stage 1 through stage 4 chronic kidney disease, or unspecified chronic kidney disease; E11.22 Type 2 diabetes mellitus with diabetic chronic kidney disease; E87.5 Hyperkalemia
CPT/HCPCS: 99214

== ENCOUNTER → 2023-06-30 11:02 | Outpatient (BNVA) | payer OTHER, SELFPAY | PROVIDERS: PCP Internal Medicine; Visit Provider Internal Medicine Hypertension Specialist | DX: E11.22 Type 2 diabetes mellitus with diabetic chronic kidney disease (principal); E11.319 Type 2 diabetes mellitus with unspecified diabetic retinopathy without macular edema; E11.65 Type 2 diabetes mellitus with hyperglycemia; I12.9 Hypertensive chronic kidney disease with stage 1 through stage 4 chronic kidney disease, or unspecified chronic kidney disease; N18.30 Chronic kidney disease, stage 3 unspecified; H54.61 Unqualified visual loss, right eye, normal vision left eye; E78.5 Hyperlipidemia, unspecified; Z79.4 Long term (current) use of insulin | CPT/HCPCS: 99212 ==

== ENCOUNTER 2023-06-30 11:52 | Outpatient (REF) | payer OTHER, SELFPAY ==
[2023-06-30 13:33] LABS: Anion Gap 11 (12-20); Blood Urea Nitrogen 37 mg/dL (9-16); Calcium 9.4 mg/dL (8.4-10.2); Carbon Dioxide 27 mmol/L (22-29); Chloride 102 mmol/L (96-108); Estimated Glomerular Filt Rate 44; Potassium 4.6 mmol/L (3.3-5.1); Sodium 135 mmol/L (135-145)
== END 2023-06-30 11:53 | disposition home or self-care (01) ==
LOC: HO.10HDL 11:52
PROVIDERS: Visit Provider Internal Medicine Hypertension Specialist
DX: I12.9 Hypertensive chronic kidney disease with stage 1 through stage 4 chronic kidney disease, or unspecified chronic kidney disease (principal); E11.22 Type 2 diabetes mellitus with diabetic chronic kidney disease; N18.9 Chronic kidney disease, unspecified
CPT/HCPCS: 36415; 80051; 82310; 82565; 84520

== ENCOUNTER 2023-09-17 06:03 | Outpatient (REF) | payer OTHER, SELFPAY ==
[2023-09-17 11:43] LABS: MANUAL DIFF FLAG NO
[2023-09-17 11:46] LABS: Appearance Urine Clear; Color Urine Yellow; Glucose Urine UA Negative (Negative); Leukocyte Esterase Urine Negative (Negative); Nitrite Urine Negative (Negative); PH 5.5 (5.0-9.0); Urine Blood Negative (Negative); Urine Ketones Negative (Negative); Urine Protein Negative (Neg-Trace)
[2023-09-17 11:59] LABS: Basophils Absolute Auto 0.1 X10*3/uL (0.0-0.2); Basophils Percent Auto 1.7 % (0-2); Eosinophils Absolute Auto 0.4 X10*3/uL (0.0-0.4); Eosinophils Percent Auto 6.2 % (0-4); Hematocrit 41.5 % (42.0-52.0); Hemoglobin 14.6 g/dl (14.0-18.0); Imm Gran Abs Auto 0.06 X10*3/uL (0.00-0.03); Lymphocytes Absolute Auto 1.2 X10*3/uL (1.2-4.9); Lymphocytes Percent Auto 19.9 % (20-40); Mean Corpuscular HGB Conc 35.2 g/dl (31.0-36.0); Mean Corpuscular Hemoglobin 29.9 pg (27.0-33.0); Mean Platelet Volume 10.4 fL (9.4-12.4); Monocytes Absolute Auto 0.5 X10*3/uL (0.1-1.2); Monocytes Percent Auto 7.8 % (2-11); Neutrophils Absolute Auto 3.7 x10*3/uL (2.0-8.3); Neutrophils Percent Auto 63.4 % (45-73); Platelet Count 234 X10*3/uL (160-400); Red Blood Count 4.88 X10*6/uL (4.60-5.80); Red Cell Distribution Width 12.5 % (11.0-16.0); White Blood Count 5.8 X10*3/uL (4.8-10.8)
[2023-09-17 12:05] LABS: Estimated Average Glucose 180 mg/dL; Hemoglobin A1c % 7.9 % (<6.0)
[2023-09-17 12:24] LABS: Prostate Specific Antigen 0.31 ng/mL (<0.05-4.0)
[2023-09-17 12:26] LABS: Alanine Aminotransferase 29 U/L (0-40); Albumin Level 4.4 g/dL (3.5-5.0); Alkaline Phosphatase 87 U/L (39-117); Anion Gap 14 (12-20); Aspartate Amino Transferase 20 U/L (5-37); Bilirubin Total 0.7 mg/dL (0.0-1.0); Blood Urea Nitrogen 38 mg/dL (9-16); Calcium 9.8 mg/dL (8.4-10.2); Carbon Dioxide 27 mmol/L (22-29); Chloride 101 mmol/L (96-108); Cholesterol 152 mg/dL (<200); Estimated Glomerular Filt Rate 45; Glucose Fasting 156 mg/dL (60-99); HDL Cholesterol 61 mg/dL (>40); LDL Cholesterol Calculated 81 mg/dL (<100); Sodium 137 mmol/L (135-145); Total Protein 7.1 g/dL (6.5-8.0); Triglycerides 53 mg/dL (<150)
== END 2023-09-17 06:04 | disposition home or self-care (01) ==
LOC: HO.HMGCLDS 06:03
PROVIDERS: PCP Internal Medicine; Visit Provider Internal Medicine
DX: I12.9 Hypertensive chronic kidney disease with stage 1 through stage 4 chronic kidney disease, or unspecified chronic kidney disease (principal); E11.22 Type 2 diabetes mellitus with diabetic chronic kidney disease; N18.9 Chronic kidney disease, unspecified; E78.00 Pure hypercholesterolemia, unspecified
CPT/HCPCS: 36415; 80053; 80061; 81003; 82043; 82570; 83036; 84153; 85025

== ENCOUNTER 2023-10-20 10:34 | Outpatient (AMB) | payer OTHER, SELFPAY ==
--- NOTE | 2023-10-20 10:39 | HO.NEPHOV_ITS ---
HPI HPI Comments History of Present Illness Details Juan José is a middle-aged man with a history of diabetes mellitus and CKD. From renal standpoint is doing very well. He has CKD with a baseline creatinine 1.6 mg/dL. Juan José has a history of diabetes mellitus for more than 10 years complicated by retinopathy. 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 History of hypertension for more than 10 years which has been well controlled as well. Renal ultrasonogram showed a large postvoid residual back in 2018. However repeat renal ultrasonogram was unremarkable in 2020. In 2019 lisinopril was decreased by 50% due to elevation in creatinine and relatively low blood pressure. Since then serum creatinine stable and blood pressure has been well controlled as well. Today he has no cough no shortness of breath. In no specific complaints today. Waiting for cardiac evalaution [facility] Social History Alcohol intake: never Patient Tobacco Use Status: Never used Tobacco e-Cigarette/Vaping Use: Never Used Vital Signs 10/20/23 10:40 Height 5 ft 9 in Weight 185 lb BMI 27.3 BP 108/60 Blood Pressure Location Rt femoral Position Sitting Pulse 87 Pulse Source Pulse Oximeter Pulse Oximetry (%) 97 Oxygen Delivery Method Room Air Physical Exam Vital Signs: Last Vital Signs Pulse 87 10/20/23 10:40 BP 108/60 10/20/23 10:40 Pulse Ox 97 10/20/23 10:40 Oxygen Delivery Method Room Air 10/20/23 10:40 BMI result Body Mass Index 27.3 Const General: comfortable Nutritional Appearance: well nourished Orientation/consciousness: patient oriented x3 HEENT Head: No normal to inspection Mouth: moist mucous membranes Neck Neck: Yes supple and Yes no JVD Resp Auscultation: clear to auscultation bilaterally, no rales and rub present Cardio Jugular venous distension: no JVD Palpation: no palpable S3 and no palpable S4 Heart sounds: no rubs GI Palpation (GI): Soft to palpation and nontender Percussion: No Fluid wave present General: Yes no CVA tenderness Back/Spine/Pelvis Back: no CVA tenderness Skin General skin exam: no rashes or lesions noted Neuro General: patient oriented x3 Extrem General: Yes no pedal edema and No clubbing Assessment & Plan Assessment & Plan (1) CKD (chronic kidney disease) stage 3, GFR 30-59 ml/min: Code(s): N18.30 - Chronic kidney disease, stage 3 unspecified Plan: CKD 3 in a setting of longstanding diabetes mellitus hypertension. Renal function stable at this time. Goal is to slow the proximal disease. Continue with Shravan inhibitor for renal protection. He will benefit from an SGLT 2 inhibitor. (2) HTN (hypertension): Code(s): I10 - Essential (primary) hypertension Plan: Blood pressure is well controlled. Continue with current antihypertensive regimen. Discussed low-sodium diet. (3) Diabetes mellitus with chronic kidney disease: Code(s): E11.22 - Type 2 diabetes mellitus with diabetic chronic kidney disease Plan: Goal is to maintain A1c less than 7%. Again we discuss the importance of diet (4) Hyperkalemia: Code(s): E87.5 - Hyperkalemia Plan: History of hyperkalemia in the setting of chronic kidney disease and continues of Shravan inhibitor. potassium potassium has improved. He should stay on low-potassium diet. Coding Level of Care Code Est Pt Level 4 (02369) Diagnoses CKD (chronic kidney disease) stage 3, GFR 30-59 ml/min N18.30 HTN (hypertension) I10 Diabetes mellitus with chronic kidney disease E11.22 Hyperkalemia E87.5 Results Reviewed Nephrology Results: Hgb 14.6 g/dl (14.0-18.0) 09/17/23 WBC 5.8 X10*3/uL (4.8-10.8) 09/17/23 Plt Count 234 X10*3/uL (160-400) 09/17/23 Sodium 137 mmol/L (135-145) 09/17/23 Potassium 5.0 mmol/L (3.3-5.1) 09/17/23 Chloride 101 mmol/L (96-108) 09/17/23 Carbon Dioxide 27 mmol/L (22-29) 09/17/23 BUN 38 mg/dL (9-16) H 09/17/23 Creatinine 1.60 mg/dL (0.5-1.4) H 09/17/23 Calcium 9.8 mg/dL (8.4-10.2) 09/17/23 PTH Intact 46 pg/mL (16-77) 12/23/22 Urine Protein Negative mg/dL (Neg-Trace) 09/17/23 Urine Creatinine 34.00 mg/dL 09/17/23
[2023-10-20 10:40] VITALS: BP 108/60; PULSE 87; O2SAT 97; BMI 27.3
== END 2023-10-20 10:55 | disposition home or self-care (01) ==
PROVIDERS: PCP Internal Medicine; Visit Provider Internal Medicine Hypertension Specialist
DX: I12.9 Hypertensive chronic kidney disease with stage 1 through stage 4 chronic kidney disease, or unspecified chronic kidney disease (principal); E11.22 Type 2 diabetes mellitus with diabetic chronic kidney disease; N18.30 Chronic kidney disease, stage 3 unspecified; E87.5 Hyperkalemia
CPT/HCPCS: 99214

== ENCOUNTER → 2023-10-20 10:34 | Outpatient (BNVA) | payer OTHER, SELFPAY | PROVIDERS: PCP Internal Medicine; Visit Provider Internal Medicine Hypertension Specialist | DX: I12.9 Hypertensive chronic kidney disease with stage 1 through stage 4 chronic kidney disease, or unspecified chronic kidney disease (principal); E11.22 Type 2 diabetes mellitus with diabetic chronic kidney disease; N18.30 Chronic kidney disease, stage 3 unspecified; E87.5 Hyperkalemia | CPT/HCPCS: 99212 ==

== ENCOUNTER 2023-12-08 09:30 | Outpatient (AMB) | payer MEDICARE, MEDICAID, SELFPAY ==
[2023-12-08 09:56] VITALS: BP 120/70; PULSE 56; BMI 27.3
--- NOTE | 2023-12-08 09:56 | A.OFFVIS_ITS ---
Vital Signs 12/08/23 09:56 Height 5 ft 9 in Weight 185 lb 3.013 oz BMI 27.3 BP 120/70 Blood Pressure Location Lt brachial Position Sitting Pulse 56 Intake Visit Reasons: [employer]/Dr. Estrada/Palpitations, abn EKG Intake Note: New patient dx abn ekg c/o sob and abnormal heart beat Um Nurse Required: No Allergies No Known Allergies [No Known Allergies*] Allergy (Verified 10/20/23 10:41) Medication List - Last Reconciled 12/08/23 by Mani Doe MD amlodipine 10 mg PO DAILY atorvastatin 20 mg PO DAILY cholecalciferol (vitamin D3) 125 mcg PO DAILY glipizide 5 mg PO DAILY lisinopril 10 mg PO DAILY HPI Comments Details: Thank you for referring Tc in cardiology consultation today for exertional shortness of breath. He has a pleasant 53-year-old male with longstanding diabetes for about 15 years still uncontrolled with hemoglobin A1c at 7.9%, longstanding hypertension. For the last 6 months he said he has been noticing exertional shortness of breath. This happens usually when he walks longer distance at work. He denies any associated chest pain or pressure. He denies any chest tightness. Her says sometimes he feels pounding in his chest with exercise. He has had no prolonged irregular heartbeat or palpitations. No lightheadedness, syncope. Recently was noted to have irregular heartbeat. EKG done today shows PACs. He said his brother has atrial fibrillation. He has never had any prior cardiac issues including no prior history of heart attacks, coronary artery disease or vascular events. He is currently on statin therapy. He denies smoking. [facility] Social History Alcohol intake: never Patient Tobacco Use Status: Never used Tobacco e-Cigarette/Vaping Use: Never Used Review of Systems Const Denies chills, Denies daytime sleepiness, Denies fatigue, Denies fever(s), Denies frequent falls, Denies poor appetite, Denies snoring, Denies stops breathing during sleep, Denies weakness, Denies weight gain and Denies weight loss Eyes Denies loss of vision ENT Denies dizziness and Denies hearing loss Card Denies chest pain, Denies claudication, Denies leg edema, Denies lightheadedness, Denies palpitations, Denies dyspnea, Denies dyspnea on exertion and Denies orthopnea Resp Denies cough, Denies excessive phlegm production, Denies dyspnea, Denies dyspnea on exertion, Denies snoring and Denies wheezing GI Denies abdominal pain, Denies hematochezia, Denies change in bowel habits, Denies nausea and Denies vomiting Denies dysuria and Denies urinary frequency Musc Denies arthralgias, Denies muscle weakness, Denies numbness and Denies other (frequent falls) Skin/Breast Denies nail changes and Denies rash Neuro Denies Abnormal speech present, Denies dizziness, Denies frequent falls, Denies loss of vision, Denies memory loss, Denies numbness and Denies weakness Psych Denies depression and Denies memory loss Endo Denies fatigue and Denies palpitations Jakub/Lymph Reports easy bruising and Reports other (anemia) Aller/Immun Denies wheezing Physical Exam Vital Signs: Last Vital Signs Pulse 56 12/08/23 09:56 BP 120/70 12/08/23 09:56 BMI result Body Mass Index 27.3 Const General: cooperative, comfortable, no acute distress, well developed, alert and awake Nutritional Appearance: well nourished Orientation/consciousness: patient oriented x3 Limitations: no limitations HEENT Head: Yes normocephalic and Yes atraumatic Eyes General: dysmorphic (Right eye is atrophic) Neck Neck: Yes trachea midline, Yes supple and Yes no JVD Carotids: no bruits Resp Effort & Inspection: normal respiratory effort Auscultation: clear to auscultation bilaterally Cardio Jugular venous distension: no JVD Palpation: normal PMI Rate: regular rate Rhythm: abnormal rhythm with ectopic beats Heart sounds: S1 normal heart sound present, S2 normal heart sound present, no click, no gallops and no murmurs GI Auscultation: normal bowel sounds Skin General skin exam: no rashes or lesions noted Neuro General: patient oriented x3 and no focal motor deficits Speech: No Abnormal speech present Extrem General: Yes no clubbing, cyanosis or edema Office Procedures EKG Details: EKG shows sinus bradycardia with PACs otherwise no significant abnormalities. [id number], Complete Assessment & Plan Assessment & Plan (1) SOB (shortness of breath) on exertion: Code(s): R06.02 - Shortness of breath Category: Medical Plan: Shortness of breath on exertion in this middle-aged man of recent onset without any signs or symptoms of heart failure. He is multiple risk factors for obstructive coronary artery disease with longstanding uncontrolled diabetes, hypertension as well as hyperlipidemia. He also has underlying chronic kidney disease which increase risk of developing chronic cardiovascular issues. Would suggest him to have exercise myocardial perfusion imaging to further evaluate for myocardial ischemia. Also suggest an echocardiogram to evaluate LV systolic and diastolic function to evaluate for hypertensive heart disease and evaluate function pulmonary hypertension. These tests will be scheduled in near future. Further treatment based on the findings. Continue aggressive vascular risk factor modification with goal hemoglobin A1c less than 7%. Goal LDL less than 70 mg/dL. Blood pressure is currently well optimized. Advised to maintain heart healthy lifestyle. (2) Palpitations: Code(s): R00.2 - Palpitations Category: Medical Plan: Intermittent symptoms of palpitations patient noted to have PACs with brother having atrial fibrillation. Will obtain a 7 day Holter monitor to further assess for any significant atrial arrhythmias including atrial fibrillation that may change his management plan. This was discussed with him. He understands agrees. Avoidance of stimulants was discussed. Will follow up in the clinic in 6 weeks time, sooner p.r.n.. Thank you for allowing me to partake in his care Coding Level of Care Code New Pt Level 4 (98659) Diagnoses SOB (shortness of breath) on exertion R06.02 Palpitations R00.2 CPT Codes EKG - CPT: [id number], Complete ([id number])
== END 2023-12-08 10:56 | disposition home or self-care (01) ==
PROVIDERS: PCP Internal Medicine; Visit Provider Internal Medicine Cardiovascular Disease
DX: R06.02 Shortness of breath (principal); R00.2 Palpitations
CPT/HCPCS: 93010; 99204

== ENCOUNTER → 2023-12-08 09:30 | Outpatient (BNVA) | payer MEDICARE, MEDICAID, SELFPAY | PROVIDERS: PCP Internal Medicine; Visit Provider Internal Medicine Cardiovascular Disease | DX: R00.2 Palpitations (principal); R06.02 Shortness of breath; E11.9 Type 2 diabetes mellitus without complications; Z79.899 Other long term (current) drug therapy | CPT/HCPCS: 93005; 99202 ==

== ENCOUNTER → 2024-01-25 07:30 | Outpatient (REF) | payer MEDICARE, MEDICAID, SELFPAY ==
--- NOTE | ~2024-01-25 | NM_ITS ---
Exercise Myocardial perfusion study Indication: Chest pain to evaluate for myocardial ischemia Technique: The patient was brought in for an exercise perfusion study on 01/25/2024. Patient performed exercise as per Mu protocol and was injected 30 mCi of sestamibi was given intravenously one target HR was achieved. Images were obtained using the SPECT gamma camera interlaced with the gating device. Images were obtained in supine position. Resting perfusion study was performed on 01/28/2024. Patient was administered 30 mCi of sestamibi intravenously at rest. Images were then obtained in supine position. Images obtained with and without CT attenuation. Total DLP 107 mGy-cm. Images were processed with the software and compared side to side in short axis, horizontal long axis and vertical long axis views. Findings: The stress perfusion study showed attenuated images show mildly reduced uptake in the basal septum of the LV myocardium. Attenuation corrected images show minimally reduced uptake in the apex of the LV myocardium.. The gated study shows normal LV systolic function with calculated LVEF of 66%. LV cavity is normal in size. The gated study shows normal systolic wall thickening and contraction of all segments. There is no transient ischemic dilation. Resting study shows no change in perfusion pattern compared to stress perfusion study. Gating at rest reveals normal systolic wall motion with ejection fraction at 65%. The findings are consistent with no clear reversible defect suggestive of ischemia. Normal myocardial perfusion. NM/NM cardiolite stress test Impression: 1. Normal myocardial perfusion 2. Gated LVEF is 66% 3. Transient ischemic dilatation not present Stress EKG is positive for ischemia
--- NOTE | 2024-01-25 08:10 | CA_ITS ---
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 The visually estimated ejection fraction is between 65-70%. - There is mild septal and mild basal asymmetric hypertrophy. - There is mild calcification of the aortic valve. - There is mild mitral annular calcification. Findings Procedure Information Contrast agent, definity, is being given per protocol without apparent complications. Left Ventricle Normal left ventricular cavity size. There is mildly increased left ventricular wall thickness. The left ventricular systolic function is normal. The visually estimated ejection fraction is between 65-70%. There is no evidence of regional wall motion abnormalities. Diastolic function is normal for age. There is mild septal and mild basal asymmetric hypertrophy. Right Ventricle Moderately increased right ventricular cavity size. There is normal right ventricular systolic function. Atria Both atria are normal in size. Aortic Valve There is a normal trileaflet aortic valve. There is mild calcification of the aortic valve. There is no aortic valve stenosis. There is no aortic valve regurgitation. Mitral Valve There is mild mitral annular calcification. There is trace mitral valve regurgitation. There is no mitral valve stenosis. Pulmonic Valve The pulmonic valve is likely normal. There is trace pulmonic valve regurgitation. Tricuspid Valve Normal tricuspid valve structure. There is trace tricuspid valve regurgitation. There is no evidence of pulmonary hypertension. Great Vessels The asc aorta is normal in size. Venous The inferior vena cava is normal in size and collapses greater than 50% with inspiration. Pericardium/Pleural There is no evidence of pericardial effusion. Prior Study Comparison No significant change compared to prior study dated: 10/21/2019. Measurements 2D Linear Measurements IVSd: 1.09 0.6-0.9/0.6-1.0 cm LVIDd: 4.39 3.9-5.3/4.2-5.9 cm LVIDd Index: 2.20 2.4-3.2/2.2-3.1 cm/m2 LVIDs: 3.32 2.0-3.6 cm LVPWd: 1.06 0.7-1.1 cm Ao Root: 3.40 2.1-3.5 cm LA Diam: 4.20 2.7-3.8/3.0-4.0 cm LAIDs Index: 2.10 1.5-2.3 cm/m2 LV Mass: 202.93 67-162/88-224 g LV Mass Index: 101.46 43-95/49-115 g/m2 LVOT Diam: 2.20 3.0+(-)1.3 cm 2D Systolic Function EF 4C: 73.70 >55% EF 2C: 80.90 >55% EF BiP: 77.30 >55% Mitral Valve MV VTI: 0.64 MV Pk Tevin: 1.58 MV Mn Tevin: 0.72 MV Pk Grad: 10.00 MV Mn Grad: 3.00 MV Pk E: 1.31 MV PK A: 1.01 MV Decel Time: 406.00 E/A: 1.30 E'Lateral: 10.60 E'Medial: 5.87 E/E' Med: 22.30 E/E' Lat: 12.40 PHT: 119.00 MVA PHT: 1.85 MVA Continuity: 1.96 Decel Erie: 3.22 Aortic Valve AoV Pk Tevin: 1.52 AoV Mn Tevin: 0.93 AoV VTI: 0.48 AoV Pk Grad: 9.00 Aov Mn Grad: 4.00 JANAE Cont.VTI: 2.62 LVOT LVOT Pk Tevin: 1.15 LVOT Mn Tevin: 0.69 LVOT VTI: 0.33 LVOT Pk Grad: 5.00 LVOT Mn Grad: 2.00 LVOT Diam: 2.20 LVOT Area: 3.80 Diastolic Function MV Pk E: 1.31 MV Pk A: 1.01 E/A: 1.30 E'Medial: 5.87 E/E' Med: 22.30 E' Laterial: 10.60 E/E' Lat: 12.40 Right Ventricle TAPSE (mm): 23.00 TVS' Tevin: 11.00 Tricuspid Valve TR Pk Tevin: 1.83 TR Pk Grad: 13.00 RA Press: 3.00 RVSP: 16.00 Great Vessels Aorta Ao Root-2D: 3.40 2.0-3.7 cm Ao Asc: 3.30 2.1-3.4 cm Pulmonary Valve PV Pk Tevin: 0.92 Peak PV Grad: 3.00 Updated in Other Vendor System with Status of Final Seamus Rolle MD electronically signed on 01/26/2024 9:28:35 AM with status of Final
--- NOTE | 2024-01-25 08:10 | CA_ITS ---
Acquisition Time: 2024-01-25 09:27:52 Total Exercise Time: 00:02:58 Test Indications: Dyspnea Medications: AMLODIPINE ATORVASTATIN GLIPIZIDE LISINOPRIL Protocol: KARO Max HR: 136 BPM 82% of Pred: 164 BPM Max BP: 196/072 mmHG Max Work Load: 4.6 METS Exercise stress test with exercise 3 min 40 sec of Karo stage 1 ( exercise clock stopped prematurely), achieving 83% MPHR, with moderate shortness of breath, 5/10 anterior chest tightness, lightheadedness with request to stop, with normotensive response to exercise, with sinus rhythm alternating with junctional rhythm at baseline, with accelerated junctional rhythm and sinus tachycardia during exercise, with isolated PVCs, at times in trigeminy pattern, with isolated PACs, with downsloping ST and T wave inversions inferiolateral leads suggesting ischemia. In recovery his symptoms gradual improved and EKG changes resolved. Nuclear images pending. Test reviewed with Dr Martínez. Referred By: Mani Doe Overread By: CONNIE GONSALEZ
== END ==
LOC: HO.CARD 07:30
PROVIDERS: PCP Internal Medicine; Visit Provider Internal Medicine Cardiovascular Disease
DX: R07.9 Chest pain, unspecified (principal); R06.02 Shortness of breath
CPT/HCPCS: 78452; 93017; 93306; A9500; Q9957

== ENCOUNTER → 2024-01-25 08:10 | Outpatient (BNV) | payer MEDICARE, MEDICAID, SELFPAY | PROVIDERS: PCP Internal Medicine; Visit Provider Nurse Practitioner Family | DX: I34.81 Nonrheumatic mitral (valve) annulus calcification (principal); I35.8 Other nonrheumatic aortic valve disorders; I42.2 Other hypertrophic cardiomyopathy | CPT/HCPCS: 78452; 93016; 93018; 93350; 93352 ==

== ENCOUNTER 2024-02-01 09:10 | Outpatient (AMB) | payer MEDICARE, MEDICAID, SELFPAY ==
[2024-02-01 09:43] VITALS: BP 142/60; PULSE 69; BMI 27.3
--- NOTE | 2024-02-01 09:43 | A.OFFVIS_ITS ---
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 He underwent an echocardiogram and nuclear stress test and now presents for follow-up. Today he reports that he does notice some shortness of breath when he is at [employer]. 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 He has no PND, orthopnea or edema. No chest discomfort at rest. He will notice some chest tightness at times with exertion. He reports random lightheadedness at times, no presyncope, syncope, falls. He reports med compliance. [facility] Social History Alcohol intake: never Patient Tobacco Use Status: Never used Tobacco e-Cigarette/Vaping Use: Never Used Review of Systems Const All systems reviewed & are unremarkable except as noted in HPI and below ENT Reports dizziness Card Denies chest pain, Denies chest pain at rest, Denies chest pain with activity, Denies rapid heart rate, Denies pedal edema, Denies edema, Denies leg edema, Denies lightheadedness, Denies palpitations, Denies dyspnea, Reports dyspnea on exertion and Denies orthopnea Resp Denies cough, Denies dyspnea and Reports dyspnea on exertion GI Denies hematochezia and Denies change in stool character Musc Denies abnormal gait, Denies limited range of motion, Denies muscle cramps, Denies muscle weakness, Denies numbness, Denies radiating pain into limb, Denies stiffness and Denies tingling Neuro Denies abnormal gait, Reports dizziness, Denies numbness and Denies tingling Endo Denies palpitations Physical Exam Vital Signs: Last Vital Signs Pulse 69 02/01/24 09:43 BP 142/60 H 02/01/24 09:43 BMI result Body Mass Index 27.3 Const General: cooperative, healthy appearing, comfortable and no acute distress Orientation/consciousness: patient oriented x3 Neck Neck: Yes normal visual inspection and Yes no JVD Resp Effort & Inspection: normal respiratory effort Auscultation: clear to auscultation bilaterally, no rales, no rhonchi and no wheezes Cardio Jugular venous distension: no JVD Rate: regular rate Rhythm: regular rhythm Heart sounds: S1 normal heart sound present, S2 normal heart sound present, no murmurs and no rubs Neuro General: patient oriented x3 Extrem General: Yes normal to inspection, No no pedal edema and No calf tenderness Psych Appearance: grossly normal Mental Status: mental status grossly normal Speech and movement: Normal speech and movement present Assessment & Plan Assessment & Plan (1) SOB (shortness of breath) on exertion: Code(s): R06.02 - Shortness of breath Category: Medical Plan: Shortness of breath with exertional activities. He does have multiple cardiac risk factors including hypertension, hyperlipidemia, diabetes, chronic kidney disease. He has no known history of heart disease. He did undergo an echocardiogram on 01/25/2024 showing EF 65-70%, mild septal and basal asymmetric hypertrophy, mild calcification of the aortic valve. A nuclear stress test was done 01/25/2024 showing exercise 3 minutes 40 seconds with shortness of breath and 5/10 chest tightness with intermittent junctional rhythm at rest, accelerated junctional during exercise, no ischemic EKG changes and normal myocardial perfusion imaging. Test results reviewed with him. He does have significant decrease in activity tolerance for his age. 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 Considered CTA of the coronary arteries however he does have chronic kidney disease with last creatinine 1.6. Will order a Holter monitor to further evaluate his heart rhythm and to see if treatment is needed. Once test results will plan to discuss further with cook pickled meat regarding any further testing. Patient is agreeable to this plan. Continue with current antihypertensives of amlodipine and lisinopril. Continue with good diabetic control, cholesterol control. Continue activity as tolerated. Emergency care if ever needed for symptoms. Cardiology follow-up 3 months, sooner if needed. (2) Lightheadedness: Code(s): R42 - Dizziness and giddiness Category: Medical Plan: Patient does report some intermittent lightheadedness. Unclear if this correlates with his junctional rhythm or any significant bradycardia. Holter monitor ordered for further evaluation (3) HTN (hypertension): Code(s): I10 - Essential (primary) hypertension Category: Medical Plan: Mild elevation today. Blood pressure normally is well controlled. Continue current med management. (4) Diabetes mellitus with chronic kidney disease: Code(s): E11.22 - Type 2 diabetes mellitus with diabetic chronic kidney disease Category: Medical Plan: Hemoglobin A1c goal less than 7. Followed by his PCP. Plan Time spent on chart review, documentation, interview and assessment Orders: Orders ECG 3 day holter monitor Today R00.2 - Palpitations, R42 - Dizziness and giddiness Coding Level of Care Code Est Pt Level 3 (81466) Diagnoses SOB (shortness of breath) on exertion R06.02 Lightheadedness R42 HTN (hypertension) I10 Diabetes mellitus with chronic kidney disease E11.22 Time Spent (min) 24
== END 2024-02-01 10:12 | disposition home or self-care (01) ==
PROVIDERS: PCP Internal Medicine; Visit Provider Nurse Practitioner Family
DX: R06.02 Shortness of breath (principal); R42 Dizziness and giddiness; I10 Essential (primary) hypertension; E11.22 Type 2 diabetes mellitus with diabetic chronic kidney disease
CPT/HCPCS: 99213

== ENCOUNTER → 2024-02-01 09:10 | Outpatient (BNVA) | payer MEDICARE, MEDICAID, SELFPAY | PROVIDERS: PCP Internal Medicine; Visit Provider Nurse Practitioner Family | DX: R06.02 Shortness of breath (principal); R42 Dizziness and giddiness; E11.22 Type 2 diabetes mellitus with diabetic chronic kidney disease; I12.9 Hypertensive chronic kidney disease with stage 1 through stage 4 chronic kidney disease, or unspecified chronic kidney disease; N18.9 Chronic kidney disease, unspecified; Z79.899 Other long term (current) drug therapy | CPT/HCPCS: 99212 ==

== ENCOUNTER → 2024-02-23 09:59 | Outpatient (REF) | payer MEDICARE, MEDICAID, SELFPAY | LOC: HO.CARD 09:59 | PROVIDERS: PCP Internal Medicine; Visit Provider Nurse Practitioner Family | DX: R00.2 Palpitations (principal); R42 Dizziness and giddiness | CPT/HCPCS: 93242 ==

== ENCOUNTER 2024-02-25 07:31 | Outpatient (REF) | payer MEDICARE, MEDICAID, SELFPAY ==
[2024-02-25 11:14] LABS: Anion Gap 14 (12-20); Blood Urea Nitrogen 24 mg/dL (9-16); Calcium 9.2 mg/dL (8.4-10.2); Carbon Dioxide 24 mmol/L (22-29); Chloride 105 mmol/L (96-108); Estimated Glomerular Filt Rate 47; Potassium 4.7 mmol/L (3.3-5.1); Sodium 138 mmol/L (135-145)
== END 2024-02-25 07:32 | disposition home or self-care (01) ==
LOC: HO.10HDL 07:31
PROVIDERS: Visit Provider Internal Medicine Nephrology
DX: N18.30 Chronic kidney disease, stage 3 unspecified (principal)
CPT/HCPCS: 36415; 80051; 82310; 82565; 84520

== ENCOUNTER → 2024-03-01 07:41 | Outpatient (REF) | payer MEDICARE, MEDICAID, SELFPAY ==
--- NOTE | 2024-03-01 07:43 | HM_ITS ---
Conclusion: 1. Patient was monitored for total period of 3 days 2. Baseline was normal sinus rhythm with average heart of 60 beats per minute 3. No significant pauses noted but frequent sinus bradycardia noted with 39% of time heart rate below 60 beats per minute 4. Frequent PACs noted with total burden of 16.2% with 9 SVT runs, longest lasting 12 beats at 158 beats per minute 5. Rare PVCs noted 6. No patient reported events MTDD
== END ==
LOC: HO.CARD 07:41
PROVIDERS: PCP Internal Medicine; Visit Provider Nurse Practitioner Family
DX: R00.2 Palpitations (principal); R42 Dizziness and giddiness; I12.9 Hypertensive chronic kidney disease with stage 1 through stage 4 chronic kidney disease, or unspecified chronic kidney disease; E11.22 Type 2 diabetes mellitus with diabetic chronic kidney disease; N18.30 Chronic kidney disease, stage 3 unspecified; E87.5 Hyperkalemia
CPT/HCPCS: 93242; 99212

== ENCOUNTER → 2024-03-01 07:43 | Outpatient (BNV) | payer MEDICARE, MEDICAID, SELFPAY | PROVIDERS: PCP Internal Medicine; Visit Provider Internal Medicine Cardiovascular Disease | DX: I49.1 Atrial premature depolarization (principal) | CPT/HCPCS: 93244 ==

== ENCOUNTER 2024-03-01 10:15 | Outpatient (AMB) | payer MEDICARE, MEDICAID, SELFPAY ==
[2024-03-01 10:17] VITALS: BP 140/60; PULSE 55; O2SAT 97; BMI 27.6
--- NOTE | 2024-03-01 10:17 | HO.NEPHOV ---
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 From renal standpoint is doing very well. He has CKD with a baseline creatinine 1.6 mg/dL. Juan José has a history of diabetes mellitus for more than 10 years complicated by retinopathy. 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 History of hypertension for more than 10 years which has been well controlled as well. Renal ultrasonogram showed a large postvoid residual back in 2018. However repeat renal ultrasonogram was unremarkable in 2020. In 2019 lisinopril was decreased by 50% due to elevation in creatinine and relatively low blood pressure. Since then serum creatinine stable and blood pressure has been well controlled as well. Today he has no cough HAs shortness of breath on exertion. Undergoing cardiac evaluation [facility] Social History Alcohol intake: never Patient Tobacco Use Status: Never used Tobacco e-Cigarette/Vaping Use: Never Used Physical Exam Vital Signs: Last Vital Signs Pulse 55 03/01/24 10:17 BP 140/60 H 03/01/24 10:17 Pulse Ox 97 03/01/24 10:17 Oxygen Delivery Method Room Air 03/01/24 10:17 BMI result Body Mass Index 27.6 Const General: comfortable Nutritional Appearance: well nourished Orientation/consciousness: patient oriented x3 HEENT Head: No normal to inspection Mouth: moist mucous membranes Neck Neck: Yes supple and Yes no JVD Resp Auscultation: clear to auscultation bilaterally and no rales Cardio Jugular venous distension: no JVD Palpation: no palpable S3 and no palpable S4 Heart sounds: no rubs GI Palpation (GI): Soft to palpation and nontender Percussion: No Fluid wave present General: Yes no CVA tenderness Back/Spine/Pelvis Back: no CVA tenderness Skin General skin exam: no rashes or lesions noted Neuro General: patient oriented x3 Extrem General: Yes no pedal edema and No clubbing Results Reviewed Nephrology Results: Hgb 14.6 g/dl (14.0-18.0) 09/17/23 WBC 5.8 X10*3/uL (4.8-10.8) 09/17/23 Plt Count 234 X10*3/uL (160-400) 09/17/23 Sodium 138 mmol/L (135-145) 02/25/24 Potassium 4.7 mmol/L (3.3-5.1) 02/25/24 Chloride 105 mmol/L (96-108) 02/25/24 Carbon Dioxide 24 mmol/L (22-29) 02/25/24 BUN 24 mg/dL (9-16) H 02/25/24 Creatinine 1.55 mg/dL (0.5-1.4) H 02/25/24 Calcium 9.2 mg/dL (8.4-10.2) 02/25/24 Urine Protein Negative mg/dL (Neg-Trace) 09/17/23 Urine Creatinine 34.00 mg/dL 09/17/23 Assessment & Plan Assessment & Plan (1) CKD (chronic kidney disease) stage 3, GFR 30-59 ml/min: Code(s): N18.30 - Chronic kidney disease, stage 3 unspecified Category: Medical Plan: CKD 3 in a setting of longstanding diabetes mellitus hypertension. Renal function stable at this time. Goal is to slow the proximal disease. Continue with Shravan inhibitor for renal protection. He will benefit from an SGLT 2 inhibitor. (2) HTN (hypertension): Code(s): I10 - Essential (primary) hypertension Category: Medical Plan: Blood pressure is well controlled. Continue with current antihypertensive regimen. Discussed low-sodium diet. (3) Diabetes mellitus with chronic kidney disease: Code(s): E11.22 - Type 2 diabetes mellitus with diabetic chronic kidney disease Category: Medical Plan: Goal is to maintain A1c less than 7%. Again we discuss the importance of diet (4) Hyperkalemia: Code(s): E87.5 - Hyperkalemia Category: Medical Plan: History of hyperkalemia in the setting of chronic kidney disease and continues of Shravan inhibitor. potassium potassium has improved. He should stay on low-potassium diet. Coding Level of Care Code Est Pt Level 4 (46227) Diagnoses CKD (chronic kidney disease) stage 3, GFR 30-59 ml/min N18.30 HTN (hypertension) I10 Diabetes mellitus with chronic kidney disease E11.22 Hyperkalemia E87.5
== END 2024-03-01 10:35 | disposition home or self-care (01) ==
PROVIDERS: PCP Internal Medicine; Visit Provider Internal Medicine Hypertension Specialist
DX: E11.22 Type 2 diabetes mellitus with diabetic chronic kidney disease (principal); N18.30 Chronic kidney disease, stage 3 unspecified; I10 Essential (primary) hypertension; E87.5 Hyperkalemia
CPT/HCPCS: 99214

== ENCOUNTER 2024-03-08 06:04 | Outpatient (REF) | payer MEDICARE, MEDICAID, SELFPAY ==
[2024-03-08 10:37] LABS: Estimated Average Glucose 177 mg/dL; Hemoglobin A1c % 7.8 % (<6.0)
[2024-03-08 10:41] LABS: Alanine Aminotransferase 37 U/L (0-40); Albumin Level 4.4 g/dL (3.5-5.0); Alkaline Phosphatase 86 U/L (39-117); Anion Gap 12 (12-20); Aspartate Amino Transferase 25 U/L (5-37); Bilirubin Total 0.8 mg/dL (0.0-1.0); Blood Urea Nitrogen 23 mg/dL (9-16); Calcium 9.3 mg/dL (8.4-10.2); Carbon Dioxide 27 mmol/L (22-29); Chloride 103 mmol/L (96-108); Estimated Glomerular Filt Rate 47; Glucose Random 153 mg/dL (60-115); Potassium 4.8 mmol/L (3.3-5.1); Sodium 137 mmol/L (135-145); Total Protein 6.8 g/dL (6.5-8.0)
== END 2024-03-08 06:05 | disposition home or self-care (01) ==
LOC: HO.HMGCLDS 06:04
PROVIDERS: PCP Internal Medicine; Visit Provider Internal Medicine
DX: E11.9 Type 2 diabetes mellitus without complications (principal); I10 Essential (primary) hypertension; N18.9 Chronic kidney disease, unspecified
CPT/HCPCS: 36415; 80053; 83036

== ENCOUNTER 2024-05-12 08:57 | Outpatient (AMB) | payer MEDICARE, MEDICAID, SELFPAY ==
--- NOTE | 2024-05-12 09:18 | A.OFFVIS_ITS ---
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 He had very poor exercise tolerance during his stress test. He was also noted to have some accelerated junctional rhythm. Recently had a Holter monitor and now presents for follow-up. Today he reports that he continues to notice shortness of breath when he is at work. 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 He has no PND, orthopnea or edema. No chest discomfort at rest. He previously noted some chest tightness at times with exertion but denies recent episode at this visit. He has brief heart palpitations. He reports random lightheadedness at times, no presyncope, syncope, falls. He reports med compliance. [facility] Social History Alcohol intake: never Patient Tobacco Use Status: Never used Tobacco e-Cigarette/Vaping Use: Never Used Review of Systems Const All systems reviewed & are unremarkable except as noted in HPI and below ENT Denies dizziness Card Denies chest pain, Denies chest pain at rest, Denies chest pain with activity, Reports rapid heart rate, Denies pedal edema, Denies edema, Denies leg edema, Denies lightheadedness, Denies palpitations, Denies dyspnea, Reports dyspnea on exertion and Denies orthopnea Resp Denies cough, Denies dyspnea and Reports dyspnea on exertion GI Denies hematochezia and Denies change in stool character Musc Denies abnormal gait, Denies limited range of motion, Denies muscle cramps, Denies muscle weakness, Denies numbness, Denies radiating pain into limb, Denies stiffness and Denies tingling Neuro Denies abnormal gait, Denies dizziness, Denies numbness and Denies tingling Endo Denies palpitations Physical Exam Vital Signs: Last Vital Signs Pulse 64 05/12/24 09:20 BP 142/60 H 05/12/24 09:20 BMI result Body Mass Index 28.5 Const General: cooperative, healthy appearing, comfortable and no acute distress Orientation/consciousness: patient oriented x3 Neck Neck: Yes normal visual inspection Resp Effort & Inspection: normal respiratory effort Auscultation: clear to auscultation bilaterally, no rales, no rhonchi and no wheezes Cardio Jugular venous distension: no JVD Rate: regular rate Rhythm: regular rhythm Heart sounds: S1 normal heart sound present, S2 normal heart sound present, no murmurs and no rubs Neuro General: patient oriented x3 Extrem General: Yes normal to inspection Psych Appearance: grossly normal Mental Status: mental status grossly normal Speech and movement: Normal speech and movement present Office Procedures EKG Details: Today, read by me, sinus rhythm with PACs, can not exclude prior anterior infarct, rate 64, QTC 385 milliseconds [id number], Complete Assessment & Plan Assessment & Plan (1) SOB (shortness of breath) on exertion: Code(s): R06.02 - Shortness of breath Category: Medical Plan: Shortness of breath with exertional activities. He does have multiple cardiac risk factors including hypertension, hyperlipidemia, diabetes, chronic kidney disease. He has no known history of heart disease. He did undergo an echocardiogram on 01/25/2024 showing EF 65-70%, mild septal and basal asymmetric hypertrophy, mild calcification of the aortic valve. A nuclear stress test was done 01/25/2024 showing exercise 3 minutes 40 seconds with shortness of breath and 5/10 chest tightness with intermittent junctional rhythm at rest, accelerated junctional during exercise, no ischemic EKG changes and normal myocardial perfusion imaging. He does have significant decrease in activity tolerance for his age. On last visit a CTA of the coronary arteries was considered however he does have chronic kidney disease with creatinine 1.5 to 1.6. 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 In order to better evaluate his coronary arteries and determine if he has obstructive coronary disease a CTA would be preferred. Discuss the option of a coronary calcium score however patient declines as this is a self-pay test. Will check with Nephrology regarding doing a CTA on him. For his junctional beats he underwent a Holter monitor on 03/01/2024 for 3 days showing sinus rhythm with average heart rate 60, sinus bradycardia 39% of the time with heart rate less than 60, frequent PACs, 16.2% of the time 9 runs, longest 12 beats. He does feel brief heart palpitations. Will avoid any rate slowing medications on him. In directed on reduction in his caffeinated beverages, stay well hydrated, get adequate rest. Continue atorvastatin. Continue with current antihypertensives of amlodipine and lisinopril. Continue with good diabetic control. Continue activity as tolerated. Emergency care if ever needed for sym ptoms. Cardiology follow-up 3-4 months, sooner if needed. (2) Lightheadedness: Code(s): R42 - Dizziness and giddiness Category: Medical Plan: Patient does report some intermittent lightheadedness. Unclear if this correlates with his junctional rhythm, as seen during stress test or any significant bradycardia. Holter monitor was done and does not show any significant bradycardia, pauses or junctional rhythm. (3) HTN (hypertension): Code(s): I10 - Essential (primary) hypertension Category: Medical Plan: Mild elevation today. Blood pressure normally is well controlled. Follows with Nephrology as well. Continue current med management. (4) Diabetes mellitus with chronic kidney disease: Code(s): E11.22 - Type 2 diabetes mellitus with diabetic chronic kidney disease Category: Medical Plan: Hemoglobin A1c goal less than 7. Followed by his PCP. (5) PAC (premature atrial contraction): Code(s): I49.1 - Atrial premature depolarization Category: Medical Plan: Frequent PACs noted on Holter monitor, 16.2% of time, 9 SVT runs, longest 12 beats. Patient does feel heart palpitations and very brief rapid rates. Discussed caffeine reduction as above. Currently drinking 2-3 caffeinated beverages per day. (6) Accelerated junctional rhythm: Code(s): I49.8 - Other specified cardiac arrhythmias Category: Medical Plan: As above, noted during stress test. (7) Preop cardiovascular exam: Code(s): Z01.810 - Encounter for preprocedural cardiovascular examination Category: Medical Plan: Patient is undergoing a colonoscopy on 06/29/2024. He can proceed with an intermediate cardiac risk. This is a low risk procedure. A CTA of the coronaries is pending however not expected to be done prior to his colonoscopy date. He is not reporting any chest discomfort at rest or with activity. His nuclear scan was normal however he has low exercise tolerance and shortness of breath which we are further evaluating. He is known to have some intermittent accelerated junctional rhythm, frequent PACs and short SVT runs. Avoid rate slowing medications as he does have underlying sinus bradycardia. Continue atorvastatin, antihypertensives. Call/consult Cardiology if needed. Plan Time spent on chart review, documentation, interview and assessment Coding Level of Care Code Est Pt Level 4 (94895) Diagnoses SOB (shortness of breath) on exertion R06.02 Lightheadedness R42 HTN (hypertension) I10 Diabetes mellitus with chronic kidney disease E11.22 PAC (premature atrial contraction) I49.1 Accelerated junctional rhythm I49.8 Preop cardiovascular exam Z01.810 CPT Codes EKG - CPT: [id number], Complete ([id number]) Time Spent (min) 28
[2024-05-12 09:20] VITALS: BP 142/60; PULSE 64; BMI 28.5
== END 2024-05-12 10:12 | disposition home or self-care (01) ==
PROVIDERS: PCP Internal Medicine; Visit Provider Nurse Practitioner Family
DX: R06.02 Shortness of breath (principal); R42 Dizziness and giddiness; I10 Essential (primary) hypertension; E11.22 Type 2 diabetes mellitus with diabetic chronic kidney disease; I49.1 Atrial premature depolarization; I49.8 Other specified cardiac arrhythmias; Z01.810 Encounter for preprocedural cardiovascular examination
CPT/HCPCS: 93010; 99214

== ENCOUNTER → 2024-05-12 08:57 | Outpatient (BNVA) | payer MEDICARE, MEDICAID, SELFPAY | PROVIDERS: PCP Internal Medicine; Visit Provider Nurse Practitioner Family | DX: Z01.810 Encounter for preprocedural cardiovascular examination (principal); I12.9 Hypertensive chronic kidney disease with stage 1 through stage 4 chronic kidney disease, or unspecified chronic kidney disease; E11.22 Type 2 diabetes mellitus with diabetic chronic kidney disease; N18.9 Chronic kidney disease, unspecified; E78.5 Hyperlipidemia, unspecified; R06.02 Shortness of breath; R42 Dizziness and giddiness; I49.1 Atrial premature depolarization; I49.8 Other specified cardiac arrhythmias | CPT/HCPCS: 93005; 99212 ==

== ENCOUNTER 2024-06-09 06:01 | Outpatient (REF) | payer MEDICARE, MEDICAID, SELFPAY ==
[2024-06-09 10:20] LABS: Estimated Average Glucose 200 mg/dL; Hemoglobin A1C 270.8357 umol/L; Hemoglobin A1c % 8.6 % (<6.0); Total Hemoglobin (HGBA1C) 3840.9877 umol/L
[2024-06-09 10:27] LABS: Creatinine Urine 58.16 mg/dL; Microalbum/Creatinine Ratio Ur 359.3 ug/mg cr (<30)
[2024-06-09 10:48] LABS: Albumin Level 4.1 g/dL (3.5-5.0); Alkaline Phosphatase 89 U/L (39-117); Anion Gap 12 (12-20); Aspartate Amino Transferase 31 U/L (5-37); Bilirubin Total 0.9 mg/dL (0.0-1.0); Blood Urea Nitrogen 28 mg/dL (9-16); Calcium 9.4 mg/dL (8.4-10.2); Carbon Dioxide 27 mmol/L (22-29); Chloride 105 mmol/L (96-108); Estimated Glomerular Filt Rate 46; Glucose Random 209 mg/dL (60-115); Potassium 4.6 mmol/L (3.3-5.1); Sodium 139 mmol/L (135-145); Total Protein 6.6 g/dL (6.5-8.0)
[2024-06-09 11:02] LABS: Alanine Aminotransferase 41 U/L (0-40)
== END 2024-06-09 06:02 | disposition home or self-care (01) ==
LOC: HO.HMGCLDS 06:01
PROVIDERS: PCP Internal Medicine; Visit Provider Internal Medicine
DX: E11.9 Type 2 diabetes mellitus without complications (principal); N18.9 Chronic kidney disease, unspecified
CPT/HCPCS: 36415; 80053; 82043; 82570; 83036

== ENCOUNTER 2024-06-28 08:59 | Outpatient (AMB) | payer MEDICARE, MEDICAID, SELFPAY ==
--- NOTE | 2024-06-28 09:19 | HO.NEPHOV_ITS ---
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 From renal standpoint is doing very well. He has CKD with a baseline creatinine 1.6 mg/dL. Juan José has a history of diabetes mellitus for more than 10 years complicated by retinopathy. 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 History of hypertension for more than 10 years which has been well controlled as well. Renal ultrasonogram showed a large postvoid residual back in 2018. However repeat renal ultrasonogram was unremarkable in 2020. In 2019 lisinopril was decreased by 50% due to elevation in creatinine and relatively low blood pressure. Since then serum creatinine stable and blood pressure has been well controlled as well. Today he has no cough HAs shortness of breath on exertion. Undergoing cardiac evaluation 06/28/24 Waiting for colonscopy tomorrow and CTA of coronaried next month [facility] Medical History (Updated 06/27/24 @ 13:42 by Carmen Tran RN) Vision loss of right eye Hyperlipidemia Accelerated junctional rhythm PAC (premature atrial contraction) Palpitations Diabetes Chronic renal insufficiency HTN (hypertension) Surgical History H/O colonoscopy History of placement of ear tubes History of repair of cleft lip Social History Household Members: Spouse Alcohol intake: never Patient Tobacco Use Status: Never used Tobacco e-Cigarette/Vaping Use: Never Used Physical Exam Vital Signs: Last Vital Signs Pulse 75 06/28/24 09:20 BP 110/68 06/28/24 09:20 Pulse Ox 94 06/28/24 09:20 Oxygen Delivery Method Room Air 06/28/24 09:20 BMI result Body Mass Index 28.6 Results Reviewed Nephrology Results: Sodium 139 mmol/L (135-145) 06/09/24 Potassium 4.6 mmol/L (3.3-5.1) 06/09/24 Chloride 105 mmol/L (96-108) 06/09/24 Carbon Dioxide 27 mmol/L (22-29) 06/09/24 BUN 28 mg/dL (9-16) H 06/09/24 Creatinine 1.56 mg/dL (0.5-1.4) H 06/09/24 Calcium 9.4 mg/dL (8.4-10.2) 06/09/24 Urine Creatinine 58.16 mg/dL 06/09/24 Assessment & Plan Assessment & Plan (1) CKD (chronic kidney disease) stage 3, GFR 30-59 ml/min: Code(s): N18.30 - Chronic kidney disease, stage 3 unspecified Category: Medical Plan: . CKD 3 in a setting of longstanding diabetes mellitus hypertension. Renal function stable at this time. Goal is to slow the proximal disease. Continue with Shravan inhibitor for renal protection. He will benefit from an SGLT 2 inhibitor. SCheduled for CTA of coronory on 07/27/24 Will check BUN/Cr on 07/28/24 . (2) HTN (hypertension): Code(s): I10 - Essential (primary) hypertension Category: Medical Plan: Blood pressure is well controlled. Continue with current antihypertensive regimen. Discussed low-sodium diet. (3) Diabetes mellitus with chronic kidney disease: Code(s): E11.22 - Type 2 diabetes mellitus with diabetic chronic kidney disease Category: Medical Plan: Goal is to maintain A1c less than 7%. Again we discuss the importance of diet. (4) Hyperkalemia: Code(s): E87.5 - Hyperkalemia Category: Medical Plan: History of hyperkalemia in the setting of chronic kidney disease and continues of Shravan inhibitor. potassium potassium has improved. He should stay on low-potassium diet. Orders: Orders Basic Metabolic Panel 3 Months N18.30 - Chronic kidney disease, stage 3 unspecified Total Protein Urine Random 3 Months N18.30 - Chronic kidney disease, stage 3 unspecified UA and rflx microscopic 3 Months N18.30 - Chronic kidney disease, stage 3 unspecified Basic Metabolic Panel 07/28/24 N18.30 - Chronic kidney disease, stage 3 unspecified Complete Blood Count no Diff 3 Months N18.30 - Chronic kidney disease, stage 3 unspecified Creatinine Urine 3 Months N18.30 - Chronic kidney disease, stage 3 unspecified Coding Level of Care Code Est Pt Level 4 (48889) Diagnoses CKD (chronic kidney disease) stage 3, GFR 30-59 ml/min N18.30 HTN (hypertension) I10 Diabetes mellitus with chronic kidney disease E11.22 Hyperkalemia E87.5
[2024-06-28 09:20] VITALS: BP 110/68; PULSE 75; O2SAT 94; BMI 28.6
== END 2024-06-28 09:33 | disposition home or self-care (01) ==
PROVIDERS: PCP Internal Medicine; Visit Provider Internal Medicine Hypertension Specialist
DX: I12.9 Hypertensive chronic kidney disease with stage 1 through stage 4 chronic kidney disease, or unspecified chronic kidney disease (principal); E11.22 Type 2 diabetes mellitus with diabetic chronic kidney disease; N18.30 Chronic kidney disease, stage 3 unspecified; E87.5 Hyperkalemia
CPT/HCPCS: 99214

== ENCOUNTER → 2024-06-28 08:59 | Outpatient (BNVA) | payer MEDICARE, MEDICAID, SELFPAY | PROVIDERS: PCP Internal Medicine; Visit Provider Internal Medicine Hypertension Specialist | DX: E11.22 Type 2 diabetes mellitus with diabetic chronic kidney disease (principal); I12.9 Hypertensive chronic kidney disease with stage 1 through stage 4 chronic kidney disease, or unspecified chronic kidney disease; N18.30 Chronic kidney disease, stage 3 unspecified; E87.5 Hyperkalemia | CPT/HCPCS: 99212 ==

== ENCOUNTER 2024-06-29 06:52 | Day surgery (SDC) | payer MEDICARE, MEDICAID, SELFPAY ==
[2024-06-27 13:40] VITALS: BMI 28.5
--- NOTE | 2024-06-28 08:46 | P.CONAN_ITS ---
Documented by User: Elsi Lowery NP 06/28/24 08:50 HPI - Anesthesia Eval Consult details Narrative: 54yo M for Colonoscopy Follows [facility] Cardiology for PAC, junctional rhythm. Last office visit 05/2024, ok to proceed with colo: Patient is undergoing a colonoscopy on 06/29/2024. He can proceed with an intermediate cardiac risk. This is a low risk procedure. A CTA of the coronaries is pending however not expected to be done prior to his colonoscopy date. He is not reporting any chest discomfort at rest or with activity. His nuclear scan was normal however he has low exercise tolerance and shortness of breath which we are further evaluating. He is known to have some intermittent accelerated junctional rhythm, frequent PACs and short SVT runs. Avoid rate slowing medications as he does have underlying sinus bradycardia. Continue atorvastatin, antihypertensives. Call/consult Cardiology if needed. [facility] Active Problems Active Problems: All Active Problems Abnormal stress test (Acute) Preop cardiovascular exam (Acute) Accelerated junctional rhythm (Acute) PAC (premature atrial contraction) (Acute) Lightheadedness (Acute) Palpitations (Acute) SOB (shortness of breath) on exertion (Acute) Hyperkalemia (Acute) CKD (chronic kidney disease) stage 3, GFR 30-59 ml/min (Acute) HTN (hypertension) (Acute) Diabetes mellitus with chronic kidney disease (Acute) Past Medical History Medical History Vision loss of right eye Hyperlipidemia Accelerated junctional rhythm PAC (premature atrial contraction) Palpitations Diabetes Chronic renal insufficiency HTN (hypertension) Surgical History Surgical History H/O colonoscopy History of placement of ear tubes History of repair of cleft lip Social History Social History Household Members: Spouse Are you a primary resident care director to a significant other at home: No Alcohol intake: never Patient Tobacco Use Status: Never used Tobacco e-Cigarette/Vaping Use: Never Used Use of substances other than those prescribed or required for medical reasons: No Have you been hit, kicked, punched, or otherwise hurt by someone within the past year? If so, by whom?: No Are you DNR?: No Advance Directives: No Advance Directives Information Provided: Yes Recently lost weight without trying: No Nutrition Risks: No Nutritional Risk Meds Allergies Allergy/AdvReac Type Severity Reaction Status Date / Time No Known Allergies Allergy Verified 06/28/24 09:22 [No Known Allergies*] Home Medications ?Medication ?Instructions ?Recorded ?Confirmed ?Last Taken ?Type amlodipine 10 mg tablet 10 mg PO DAILY 06/30/23 06/28/24 Unknown History atorvastatin 20 mg tablet 20 mg PO DAILY 06/30/23 06/28/24 Unknown History cholecalciferol (vitamin D3) 125 125 mcg PO DAILY 06/30/23 06/28/24 Unknown History mcg (5,000 unit) tablet glipizide 5 mg tablet 5 mg PO DAILY 06/30/23 06/28/24 Unknown History lisinopril 20 mg tablet 10 mg PO DAILY 12/08/23 06/29/24 06/29/24 05:30 History Exam Height,Weight and Vital Signs: Height 5 ft 9 in Weight 87.543 kg Pertinent Lab Results Pertinent Lab Results: Laboratory Tests 09/17/23 06/09/24 06:15 06:06 WBC 5.8 Hgb 14.6 Hct 41.5 L Plt Count 234 Sodium 139 Potassium 4.6 Chloride 105 Carbon Dioxide 27 BUN 28 H Creatinine 1.56 H Narrative Narrative: echocardiogram on 01/25/2024 showing EF 65-70%, mild septal and basal asymmetric hypertrophy, mild calcification of the aortic valve. A nuclear stress test was done 01/25/2024 showing exercise 3 minutes 40 seconds with shortness of breath and 5/10 chest tightness with intermittent junctional rhythm at rest, accelerated junctional during exercise, no ischemic EKG changes and normal myocardial perfusion imaging. Holter monitor on 03/01/2024 for 3 days showing sinus rhythm with average heart rate 60, sinus bradycardia 39% of the time with heart rate less than 60, frequent PACs, 16.2% of the time 9 runs, longest 12 beats. Assessment and Plan Assessment Anesthesia Assessment: Chart Reviewed Documented by User: Ameya Perez MD 06/29/24 08:18 [facility] Past Medical History Medical History Vision loss of right eye Hyperlipidemia Accelerated junctional rhythm PAC (premature atrial contraction) Palpitations Diabetes Chronic renal insufficiency HTN (hypertension) Family History Family history of problems with anesthesia: No Surgical History Surgical History H/O colonoscopy History of placement of ear tubes History of repair of cleft lip History of Problems with Anesthesia: No Social History Social History Household Members: Spouse Are you a primary resident care director to a significant other at home: No Alcohol intake: never Patient Tobacco Use Status: Never used Tobacco e-Cigarette/Vaping Use: Never Used Use of substances other than those prescribed or required for medical reasons: No Have you been hit, kicked, punched, or otherwise hurt by someone within the past year? If so, by whom?: No Are you DNR?: No Advance Directives: No Advance Directives Information Provided: Yes Recently lost weight without trying: No Nutrition Risks: No Nutritional Risk Meds Allergies Allergy/AdvReac Type Severity Reaction Status Date / Time No Known Allergies Allergy Verified 06/28/24 09:22 [No Known Allergies*] Home Medications ?Medication ?Instructions ?Recorded ?Confirmed ?Last Taken ?Type amlodipine 10 mg tablet 10 mg PO DAILY 06/30/23 06/28/24 Unknown History atorvastatin 20 mg tablet 20 mg PO DAILY 06/30/23 06/28/24 Unknown History cholecalciferol (vitamin D3) 125 125 mcg PO DAILY 06/30/23 06/28/24 Unknown History mcg (5,000 unit) tablet glipizide 5 mg tablet 5 mg PO DAILY 06/30/23 06/28/24 Unknown History lisinopril 20 mg tablet 10 mg PO DAILY 12/08/23 06/29/24 06/29/24 05:30 History Exam Airway Mallampati Class: III TM Dist: >3cm Neck ROM: Full Partial: Upper Assessment and Plan Assessment Anesthesia Assessment: Anesthesia Plan Discussed Final Anesthetic Review Family History of Problems with Anesthesia: No History of Problems with Anesthesia: No NPO: Yes ASA Class: III Final Preanesthetic Review: No Changes in Pt Med Stat, Meds/Allgs Chart Reviewed, Consent Obtained/Reviewed and Anes Risks/Benef Reviewed Patient Risk: Intermediate Procedure Risk: Low Anesthetic Plan Anesthetic Plan: TIVA Disposition: Standard PACU
[2024-06-29 07:08] VITALS: BMI 27.4
[2024-06-29 07:55] VITALS: BP 161/66; PULSE 68; RESP 16; TEMP 36.4; O2SAT 99
[2024-06-29] MEDS: Lactated Ringers 1,000 ML 100 ML IVCONT (08:10)
[2024-06-29 08:14] LABS: Glucose, Whole Blood 166 mg/dL (60-115)
[2024-06-29 09:32] VITALS: BP 87/44; PULSE 68; RESP 16; TEMP 36.7; O2SAT 95
--- NOTE | 2024-06-29 09:34 | PM.OP ---
Brief Operative Note Date of Service: 06/29/24 Pre-op diagnosis: Screening Post-op diagnosis: other (Colon polyp) Procedure: Colonoscopy to the cecum with hot snare polypectomy x 1 Surgeon: Bertrand Musa MD Anesthesia: MAC Was an General Assignment Reporter used for this Procedure?: No Estimated blood loss (mL): 0 Pathology: other (A. Polyp at 20cm) Condition: stable Disposition: PACU
[2024-06-29 09:43] VITALS: BP 100/44; PULSE 72; RESP 16; O2SAT 95
[2024-06-29 09:47] VITALS: BP 114/57; PULSE 61; RESP 16; TEMP 36.8; O2SAT 97
--- NOTE | 2024-06-29 09:48 | OP_ITS ---
DATE OF SERVICE: 06/29/2024 SURGEON: Bertrand Musa MD INDICATIONS: The patient presents for evaluation of colorectal cancer screening and prior history of a tubular adenoma of the colon. Full consent has been obtained from him for this, including risks of bleeding and perforation. PREOPERATIVE DIAGNOSIS: POSTOPERATIVE DIAGNOSIS: PROCEDURE PERFORMED: Colonoscopy to cecum with hot snare polypectomy. ESTIMATED BLOOD LOSS: COMPLICATIONS: ANESTHESIA: Monitored anesthesia care. ASSISTANTS: SPECIMENS: PREOPERATIVE DIAGNOSES: Colorectal cancer screening and personal history of tubular adenoma of the colon. POSTOPERATIVE DIAGNOSES: Colorectal cancer screening, personal history of tubular adenoma of the colon, colon polyp, diverticulosis, and internal hemorrhoids. DESCRIPTION OF PROCEDURE: The patient was placed in the left lateral decubitus position. The digital rectal exam revealed no abnormalities. The Olympus video pediatric colonoscope was then entered into the rectum and advanced to the cecum with the assistance of abdominal wall pressure. Once in the cecum, I did identify normal-appearing cecal pouch with appendiceal orifice and a normal-appearing ileocecal valve. The entire cecum and ileocecal valve appeared normal. The scope was slowly withdrawn assessing all mucosal surfaces carefully. Preparation was excellent. At 20 cm, was an approximately 8 mm polyp, which was removed by hot snare polypectomy and recovered by suction. The polypectomy site appeared clean, without any sign of residual polyp nor bleeding. I did not visualize any other polyps, colitis, nor angiodysplasias. There was a mild amount of sigmoid diverticulosis. In the rectum, scope was retroflexed, visualizing internal hemorrhoids, but no other pathology. The rectal mucosa appeared normal. The scope was straightened and withdrawn from the patient. He tolerated the procedure well and was returned to the recovery area in stable condition. IMPRESSION: 1. Colon polyp. 2. Diverticulosis. 3. Internal hemorrhoids. PLAN: The results of the pathology will be checked. I would recommend a repeat colonoscopy in 5 years. He was advised not to use any aspirin and NSAIDs for 1 week. MD LIZBETH Dumas/CALVIN / [id number]
== END 2024-06-29 10:27 | disposition home or self-care (01) ==
PROVIDERS: PCP Internal Medicine; Visit Provider Internal Medicine
PROC: 0DJD8ZZ Inspection of Lower Intestinal Tract, Via Natural or Artificial Opening Endoscopic (ICD-10-PCS; CPT 45378; principal; 2024-06-29 08:30)
DX: Z12.11 Encounter for screening for malignant neoplasm of colon (principal); Z86.0101 Personal history of adenomatous and serrated colon polyps; D12.5 Benign neoplasm of sigmoid colon; K57.30 Diverticulosis of large intestine without perforation or abscess without bleeding; K64.8 Other hemorrhoids; I12.9 Hypertensive chronic kidney disease with stage 1 through stage 4 chronic kidney disease, or unspecified chronic kidney disease; E11.22 Type 2 diabetes mellitus with diabetic chronic kidney disease; N18.30 Chronic kidney disease, stage 3 unspecified; E78.5 Hyperlipidemia, unspecified; I49.1 Atrial premature depolarization; I49.2 Junctional premature depolarization; H54.61 Unqualified visual loss, right eye, normal vision left eye; Z79.84 Long term (current) use of oral hypoglycemic drugs; Z79.899 Other long term (current) drug therapy
CPT/HCPCS: 45385; 82947; 88305; J2003; J2704

== ENCOUNTER 2024-07-12 09:10 | Outpatient (REF) | payer MEDICARE, MEDICAID, SELFPAY ==
[2024-07-12 11:23] LABS: Anion Gap 10 (12-20); Blood Urea Nitrogen 37 mg/dL (9-16); Calcium 9.4 mg/dL (8.4-10.2); Carbon Dioxide 27 mmol/L (22-29); Chloride 104 mmol/L (96-108); Estimated Glomerular Filt Rate 43; Glucose Random 213 mg/dL (60-115); Potassium 5.1 mmol/L (3.3-5.1); Sodium 136 mmol/L (135-145)
== END 2024-07-12 09:11 | disposition home or self-care (01) ==
LOC: HO.10HDL 09:10
PROVIDERS: Visit Provider Nurse Practitioner Family
DX: R94.39 Abnormal result of other cardiovascular function study (principal)
CPT/HCPCS: 36415; 80048

== ENCOUNTER 2024-07-28 12:07 | Outpatient (REF) | payer MEDICARE, MEDICAID, SELFPAY ==
--- OUTSIDE RECORDS SUMMARY | 2024-07-28 12:09 | XMS_ITS | Data Portability ---
Author Organization [place] - [facility], Allergy Address [address] [address] Care Team Providers Care Iron Worker Apprentice Name Role Phone FAUSTO HOROWITZ Primary Care Provider Assessment Encounter Date Assessment Date Assessment LastModified by Organization Details LastModified Time 07/04/2024 07/04/2024 54 year old male with profound hearing loss and bilateral amplification presents for cerumen removal. No acute issues since last visit. Cerumen impaction removed bilaterally with suction, which patient tolerated well. Otologic exam demonstrated TMs are intact. Right TM with tympanosclerosis and left TM is generally thickened. EACs are small. Recommend Q-tip avoidance and a few drops of distilled white vinegar twice weekly as needed to soften cerumen and dry out the ear canals. Recommend annual follow-up for cerumen removal, sooner with issues. [email or web address] Not available 07/04/2024 14:39:25 Plan of Treatment Reminders Order Date Submit Date Provider Last Modified By Organization Details Last Modified Time Details Appointments None record ed. Lab None record ed. Referral None record ed. Procedures None record ed. Surgeries None record ed. Imaging None record ed. Medication Orders None record ed. Patient TargetsNo targets recorded. Patient InstructionsNo instructions recorded. Reason for Referral None Reported. Problems Name Problem SNOMED Code Status Onset Date Resolution Date Notes Provider Name and Address Organization Details Recorded Time Infectiv e otitis externa of bilatera l ears 04632134266 01539 Completed 201703/11/2024 Other infectiv e otitis externa, bilatera l; Note: Date Diagnose d: 05/28/20 18 2:18 PM (H60.393 ) Not Available [facility] 08/02/202 4 02:18:42 Sensorin eural hearing loss of billauraa l ears 720580519 Active 2020 Sensorin eural hearing loss, bilatera l; Note: Date Diagnose d: 1 1:52 PM (H90.3) Not Available [facility] 4 02:18:53 Impacted cerumen of matthewa l ears 85360965740 97797 Active 2020 Impacted cerumen, bilatera l; Note: Date Diagnose d: 1 1:52 PM (H61.23) Not Available Count includes the [facility] 4 02:18:37 Problem Notes None recorded. Procedures Surgical History Date Name Laterality Status Provider Name and Address Organization Details Recorded Time 4 Cerumen removal without microscope bilat completed KATHY DELACRUZ PA-C [address] [place] [address], [phone], [facility] 07/04/2024 14:34:27 Imaging Results None recorded. Procedure Notes None recorded. Medical Equipment None Reported. Medications Name Sig Start Date Stop Date Status Note LastModified by Organization Details LastModified Time atorvasta tin 20 mg tablet active Not Available Not Available Not Available lisinopri l 20 mg tablet active Not Available Not Available Not Available Ciloxan 0.3 % eye drops 2017 active Medicatio n ID: [id number] Du ration Value: 14 Prescrib ed By Name: Justo Keene Name: Ciloxan S end Method: E-Prescri bed Subs Allowed: subs OK Specia l Instructi on: Instill 4 drops twice a day into the affected ear. [facility] cationGen ericName: Ciloxan Not Available Not Available Not Available ciproflox acin 500 mg tablet 1 tablet by mouth 07/15 completed Medicatio n ID: [id number] Du ration Value: 14 Prescrib ed By Name: CRYS Santana Name: ciproflox acin HCl Send Method: E-Prescri bed Subs Allowed: subs OK Medica tionGener icName: ciproflox acin HCl Not Available Not Available Not Available amlodipin e 10 mg tablet active Not Available Not Available Not Available metformin 1,000 mg tablet 07/15 completed Medicatio n ID: [id number] Du ration Value: 30 Brand Name: metformin Send Method: E-Prescri bed Subs Allowed: subs OK Medica tionGener icName: metformin Not Available Not Available Not Available lisinopri l 40 mg tablet 09/24 completed Medicatio n ID: [id number] Du ration Value: 30 Brand Name: lisinopri l Send Method: E-Prescri bed Subs Allowed: subs OK Medica tionGener icName: lisinopri l Not Available Not Available Not Available glipizide 5 mg tablet active Not Available Not Available Not Available TobraDex 0.3 %-0.1 % eye drops,manuelito pension 2017 active Medicatio n ID: [id number] Du ration Value: 14 Prescrib ed By Name: CRYS Santana Name: TobraDex Send Method: E-Prescri bed Subs Allowed: subs OK Specia l Instructi on: Instill 3 drops in the affect ear BID for 14 days Medi cationGen ericName: TobraDex Not Available Not Available Not Available Vitals Date Recorded Body height Body mass index (BMI) Body weight Provider Name and Address Organization Details Last Updated DateTime 07/04/2024 165.1 cm 30.8 kg/m2 97732.59 g Adalberto Robles [place] - [facility] 07/04/2024 13:37:43 Social History None recorded. Functional Status None recorded. Mental Status None recorded. Family History Nothing Reported. Medical History No medical history recorded. Past Encounters Encounter ID Performer Location Encounter Start Date Encounter Closed Date Diagnosis/Indication Diagnosis SNOMED-CT Code Diagnosis ICD10 Code [id number] TSERING MAHAJAN MD [facility] [address] [place] [address] 07/04/2024 13:21:57 07/04/2024 14:30:39 Impacted cerumen of bilateral ears [id number] 563274 H61.23 Sensorineu ral hearing loss of bilateral ears 676386642 H90.3 Health Concerns Section Related Observation LastModified by Organization Detai ls LastModified Time None Recorded Concern Status LastModified by Organization Details LastModified Time None Recorded Advance Directives Directive None Recorded Payers Encounter Date Sequence Insurance Name Policy Number Policy Correa Covered Member ID Correa Member ID Guarantor Name 07/04/2024 2 [place] [facility] Juan José Muñiz [id number] Juan José Muñiz 07/04/2024 1 [place] [employer] Juan José Muñiz [id number] Juan José Muñiz Notes Date Note Type Note Provider Name and Address Organization Details Recorded Time 07/04/2024 text/html 54 year old male with profound hearing loss and bilateral amplification presents for cerumen removal. Reports no change in hearing. Amplification dispensed from the [employer], and patient feels the aids are working well. Denies otalgia, otorrhea, or tinnitus. Occasional Qtip use in external ear. TSERING MAHAJAN MD [address] [place] [address], [phone] - [facility] 07/04/2024 15:40:09
--- OUTSIDE RECORDS SUMMARY | 2024-07-28 12:09 | XMS_ITS ---
Author Organization [facility] Address [address] [place] [address] Care Team Providers Care Publicity Agent Name Role Phone Justin Estrada MD Primary Care Provider Bertrand Carranza Unavailable [phone] ALLERGIES No Known Allergies REASON FOR VISIT Patient presents today for a COLON SCREENING MEDICATIONS Medication SIG (Take, Route, Frequency, Duration) Notes Start Date End Date Status Atorvastatin Calcium 20 MG 1 tablet Oral ly Once a day for 30 day(s) Active glipiZIDE 5 MG 1 tablet Orally Once a day for 30 day(s) Active amLODIPine Besylate 10 MG 1 tablet Orall y Once a day Active Vitamin D-3 5000 UNIT 1 tablet Orally On ce a day for 30 day(s) Active Lisinopril 10 MG 1 tablet Orally Once a day Active SOCIAL HISTORY Tobacco Use: Social History Observation Description Date Details (start date - stop date) Never Smoker NA - NA Sex Assigned At : Social History Observation Description Sex Assigned At Unknown Tobacco Use/Smoking Question Answer Notes Patient is a nonsmoker Alcohol Screen Question Answer Notes Did you have a drink containing alcohol in the p ast year? No Points 0 Interpretation Negative PROBLEMS Problem Type ICD Code Onset Dates Problem Status W/U Status Risk SNOMED Code Notes Problem Colon cancer screening (Z12.11) Active confirmed Colon cancer screening (831952051) Problem Family history of colon polyps, unspecified (Z83.719) Active confirmed Family history of polyp of colon (170414041) VITAL SIGNS BMI 27.61 kg/m2 03/02/2024 Blood pressure systolic 000 mm Hg 03/02/20 24 Blood pressure diastolic 00 mm Hg 024 Height 69 in 03/02/2024 Temperature 98.0 degrees Fahrenheit 03/02/20 Weight 187 lbs 03/02/2024 Encounters Encounter Location Date Provider Diagnosis [facility] [address] [place] [address] 03/02/2024 Bertrand Musa Encounter for screen ing for malignant neoplasm of colon Z12.11 ; Colon cancer screening Z12.11 ; Preprocedural examination Z01.818 and Family history of colon polyps, unspecified Z83.719 ASSESSMENTS Encounter Date Diagnosis Assessment Notes Treatment Notes Treatment Clinical Notes 03/02/2024 Encounter for screening for malignant neoplasm of colon (ICD-10 - Z12.11) Do not take the Glipizide the evening before or on the morning of the colonoscopy Needs cardiology clearance fromNorma Bond NP at [facility] 03/02/2024 Colon cancer screening (ICD-10 - Z12.11) 03/02/2024 Preprocedural examination (ICD-10 - Z01.818) 03/02/2024 Family history of colon polyps, unspecified (ICD-10 - Z83.719) PLAN OF TREATMENT Treatment Notes Assessment Notes Encounter for screening for malignant neoplasm of colon Do not take the Glipizide the evening before or on the morning of the colonoscopy Needs cardiology clearance Yancy Bond NP at [facility] Future Test Test Name Order Date COLONOSCOPY 03/02/2024 Next Appt Details Follow Up: prn, Reason: Progress Notes * Examination Category Sub-Category Detail Notes General Examination GENERAL APPEARANCE: pleasant , well nourished, well developed, in no acute distress HEAD: EYES: sclera non-icteric EARS: NOSE: THROAT: NECK/THYROID: no cervical lymphade nopathy, neck supple HEART: S1, S2 normal CHEST: LUNGS: clear to auscultatio n bilaterally ABDOMEN: normal bowel sounds, no guarding or rigidity, no guarding or rigidity, no masses palpable, soft, nontender, nondistended NEUROLOGIC: alert and oriented SKIN: nonjaundiced, no spi elizabet angiomata EXTREMITIES: no edema PERIPHERAL PULSES: BACK: BREASTS: MUSCULOSKELETAL: MALE GENITOURINARY: LYMPH NODES: RECTAL EXAM: FEMALE GENITOURINARY: ORAL CAVITY: mucosa moist
--- OUTSIDE RECORDS SUMMARY | 2024-07-28 12:09 | XMS_ITS ---
Author Organization [facility] Address [address] [place] [address] Care Team Providers Care Airset Caster Name Role Phone Justin Estrada MD Primary Care Provider Celestinaa Bertrand Joyner Unavailable [phone] REASON FOR VISIT colon cancer screening PROBLEMS Problem Type ICD Code Onset Dates Problem Status W/U Status Risk SNOMED Code Notes Problem Diverticulosis of large intestine without perforation or abscess without bleeding (K57.30) Active confirmed Diverticul ar disease of colon (754204636) Encounters Encounter Location Date Provider Diagnosis [facility] Outpatient [address] [place], [place] [id number] 06/29/2024 Bertrand Musa Colon cancer scree unique Z12.11 ; Colon polyps K63.5 ; Diverticulosis of large intestine without perforation or abscess without bleeding K57.30 and Other hemorrhoids K64.8 ASSESSMENTS Encounter Date Diagnosis Assessment Notes Treatment Notes Treatment Clinical Notes 06/29/2024 Colon cancer screening (ICD-10 - Z12.11) 06/29/2024 Colon polyps (ICD-10 - K63.5) 06/29/2024 Diverticulosis of large intestine without perforation or abscess without bleeding (ICD-10 - K57.30) 06/29/2024 Other hemorrhoids (ICD-10 - K64.8) PLAN OF TREATMENT No Information
--- OUTSIDE RECORDS SUMMARY | 2024-07-28 12:09 | XMS_ITS | Continuity of Care Document ---
Author Organization [place] - [facility], [facility] Address [address] [place] [address] Care Team Providers Care Registered Health Nurse Name Role Phone FAUSTO HOROWITZ Primary Care Provider [phone] Assessment Encounter Date Assessment Date Assessment LastModified [...] e otitis externa of bilatera l ears [id number] 08042 Completed 201703/11/2024 Other infectiv e otitis externa, bilatera l; Note: Date Diagnose d: 05/28/20 18 2:18 PM (H60.393 ) Not Available [facility] 08/02/202 4 02:18:42 Sensorin eural hearing loss of bilatera l ears 846438383 Active 2020 Sensorin eural hearing loss, bilatera l; Note: Date Diagnose d: 1 1:52 PM (H90.3) Not Available [facility] 4 02:18:53 Impacted cerumen of bilatera l ears 96538824015 30060 Active 2020 Impacted cerumen, bilatera l; Note: Date Diagnose d: 1 1:52 PM (H61.23) Not Available [facility] 4 02:18:37 Problem Notes None recorded. Procedures Surgical History Date Name Laterality Status Provider Name and Address Organization Details Recorded Time 4 Cerumen removal without microscope bilat completed KATHY DELACRUZ PA-C [address] [place] [address], [phone], [facility] - [facility] 07/04/2024 14:34:27 Imaging Results None recorded. Procedure Notes None recorded. Medical Equipment None Reported. Medications Name Sig Start Date Stop Date Status Note LastModified by Organization Details LastModified Time atorvasta tin 20 mg tablet active Not Available Not Available Not Available lisinopri l 20 mg tablet active Not Available Not Available Not Available Ciloxan 0.3 % eye drops 2017 active Medicatio n ID: [id number] Du ration Value: 14 Prescrib ed By Name: Justo Keene Name: Ciloxan S end Method: E-Prescri bed Subs Allowed: subs OK Specia l Instructi on: Instill 4 drops twice a day into the affected ear. Medi cationGen ericName: Ciloxan Not Available Not Available Not Available ciproflox acin 500 mg tablet 1 tablet by mouth 07/15 completed Medicatio n ID: [id number] Du ration Value: 14 Prescrib ed By Name: CRYS Santana Name: ciproflox acin HCl Send Method: E-Prescri bed Subs Allowed: subs OK Medica tionGener icName: ciproflox acin HCl Not Available Not Available Not Available amlodipin e 10 mg tablet active Not Available Not Available Not Available metformin 1,000 mg tablet 07/15 completed Medicatio n ID: [id number] Du ration Value: 30 Brand Name: metformin Send Method: E-Prescri bed Subs Allowed: subs OK Medica tionGener icName: metformin Not Available Not Available Not Available lisinopri l 40 mg tablet 09/24 completed Medicatio n ID: [id number] Du ration Value: 30 Brand Name: lisinopri l Send Method: E-Prescri bed Subs Allowed: subs OK Medica tionGener icName: lisinopri l Not Available Not Available Not Available glipizide 5 mg tablet active Not Available Not Available Not Available TobraDex 0.3 %-0.1 % eye drops,manuelito pension 2017 active Medicatio n ID: [id number] Du ration Value: 14 Prescrib ed By [...] Updated DateTime 07/04/2024 165.1 cm 30.8 kg/m2 27852.59 g Adalberto Robles [place] - [facility] 07/04/2024 13:37:43 Social History None recorded. Functional Status None recorded. Mental Status None recorded. Family History Nothing Reported. Medical History No medical history recorded. Past Encounters Encounter ID Performer Location Encounter Start Date Encounter Closed Date Diagnosis/Indication Diagnosis SNOMED-CT Code Diagnosis ICD10 Code [id number] TSERING MAHAJAN MD [facility] [address] [address] 07/04/2024 13:21:57 07/04/2024 14:30:39 Impacted cerumen of bilateral ears 9831501925 339290 H61.23 Sensorineu ral hearing loss of bilateral ears 549675265 H90.3 Health Concerns Section Related Observation LastModified by Organization Mariano sutton LastModified Time None Recorded Concern Status LastModified by Organization Details LastModified Time None Recorded Payers Encounter Date Sequence Insurance Name Policy Number Policy Correa Covered Member ID Correa Member ID Guarantor Name 07/04/2024 2 [place] [facility] Juan José Muñiz [id number] Juan José Muñiz 07/04/2024 1 [place] [employer] Juan José Muñiz [id number] Juan José Muñiz Notes Date Note Type Note Provider Name and Address Organization Details Recorded Time 07/04/2024 text/html 54 year old male with profound hearing loss and bilateral amplification presents for cerumen removal. Reports no change in hearing. Amplification dispensed from the [employer], and patient feels the aids are working well. Denies otalgia, otorrhea, or tinnitus. Occasional Qtip use in external ear. TSERING MAHAJAN MD [address] [place] [address], [phone] - [facility] 07/04/2024 15:40:09
--- OUTSIDE RECORDS SUMMARY | 2024-07-28 12:10 | XMS_ITS | Patient Health Record ---
Author Organization [facility] Address [address] [place] [address] Care Team Providers Care Full Stack Software Developer Name Role Phone Justin Estrada MD Primary Care Provider Bertrand Carranza [phone] ALLERGIES No Known Allergies RESULTS Component Value Reference Range Notes Pathology (Not yet reviewed by provider) Interpretation: Performing Lab:[facility], [address] [place] [phone] Notes/Report: Glucose, Whole Blood Reviewed date:06/29/2024 02:22:00 PM Interpretation: Performing Lab:[facility], [address] [place] [phone] Notes/Report: Glucose, Whole Blood 166 60-115 mg/dL METER # : [id number] REASON FOR REFERRAL No Information MEDICATIONS Medication SIG (Take, Route, Frequency, Duration) Notes Start Date End Date Status Atorvastatin Calcium 20 MG 1 tablet Oral ly Once a day for 30 day(s) Active glipiZIDE 5 MG 1 tablet Orally Once a day for 30 day(s) Active amLODIPine Besylate 10 MG 1 tablet Orall y Once a day Active Lisinopril 10 MG 1 tablet Orally Once a day Active Vitamin D-3 5000 UNIT 1 tablet Orally On ce a day for 30 day(s) Active IMMUNIZATIONS Vaccine Route Administration Date Status Comme nts Influenza Unknown 07/21/2018 Administered Influenza Unknown 06/02/2023 Administered SOCIAL HISTORY Tobacco Use: Social History Observation [...] W/U Status Risk SNOMED Code Notes Problem Encounter for screening for malignant neoplasm of colon (Z12.11) Active confirmed 479745103 Problem Preprocedural examination (Z01.818) Active confirmed Preprocedural examination done (536379846016215 ) Problem Colon cancer screening (Z12.11) Active confirmed Colon can cer screening (960936089) Problem Family history of colon polyps, unspecified (Z83.719) Active confirmed Family history of polyp of colon (583134181) Problem Diverticulosis of large intestine without perforation or abscess without bleeding (K57.30) Active confirmed Diverticul ar disease of colon (670551029) VITAL SIGNS Temperature 98.0 degrees Fahrenheit 03/02/2024 Blood pressure diastolic 00 mm Hg 03/02/2024 Height 69 in 03/02/2024 Blood pressure systolic 000 mm Hg 03/02/2024 Weight 187 lbs 03/02/2024 BMI 27.61 kg/m2 03/02/2024 Encounters Encounter Location Date Provider Diagnosis [facility] [place] [address] [place], [place] [phone] 06/29/2024 Bertrand Musa Colon cancer screeni ng Z12.11 ; Colon polyps K63.5 ; Diverticulosis of large intestine without perforation or abscess without bleeding K57.30 and Other hemorrhoids K64.8 [facility] [address] [place] [address] 03/02/2024 Bertrand Musa Encounter for screen ing for malignant neoplasm of colon Z12.11 ; Colon cancer screening Z12.11 ; Preprocedural examination Z01.818 and Family history of colon polyps, unspecified Z83.719 ASSESSMENTS Encounter Date Diagnosis Assessment Notes Treatment Notes Treatment Clinical Notes 06/29/2024 Colon cancer screening (ICD-10 - Z12.11) 06/29/2024 Colon polyps (ICD-10 - K63.5) 03/02/2024 Colon cancer screening (ICD-10 - Z12.11) 03/02/2024 Encounter for screening for malignant neoplasm of colon (ICD-10 - Z12.11) Do not take the Glipizide the evening before or on the morning of the colonoscopy Needs cardiology clearance fromNorma Bond NP at [facility] 06/29/2024 Diverticulosis of large intestine without perforation or abscess without bleeding (ICD-10 - K57.30) 03/02/2024 Preprocedural examination (ICD-10 - Z01.818) 06/29/2024 Other hemorrhoids (ICD-10 - K64.8) 03/02/2024 Family history of colon polyps, unspecified (ICD-10 - Z83.719) PLAN OF TREATMENT Pending Test Test Name Order Date Pathology 06/29/2024 Future Test Test Name Order Date COLONOSCOPY 11/04/2018 COLONOSCOPY 03/02/2024 Insurance Providers Payer Name Payer Address Payer Phone Subscriber Number Group Number Insured Name Patient Relationship to Insured Coverage Start Date Coverage End Date MEDICARE OF [place] [address] [place] [id number] [phone] [id number] ASHIA BRYSON Self - patient is the insured MEDICAID OF [facility] [address] [place] [address] [phone] [id number] ASHIA BRYSON Self - patient is the insured MEDICAL (GENERAL) HISTORY Medical History History ICD Code NIDDM Hypertension Denies PA,CVA,Lung disease,renal disease Hyperlipdemia CKD stage 3 Colonoscopy 12/2018 with a small tubular adenoma Wearing a heart monitor at the 03/02/2024 OV for SOB and irregular heartbeat Blind in right eye Surgical History Surgery Date(Month/Year) Retinal laser 2009 Cleft lip repair Tubes in ears
[2024-07-28 13:43] LABS: Anion Gap 13 (12-20); Blood Urea Nitrogen 28 mg/dL (9-16); Calcium 9.5 mg/dL (8.4-10.2); Carbon Dioxide 27 mmol/L (22-29); Chloride 106 mmol/L (96-108); Estimated Glomerular Filt Rate 42; Glucose Random 122 mg/dL (60-115); Potassium 4.5 mmol/L (3.3-5.1); Sodium 141 mmol/L (135-145)
== END 2024-07-28 12:08 | disposition home or self-care (01) ==
LOC: HO.HMGCLDS 12:07
PROVIDERS: PCP Internal Medicine; Visit Provider Internal Medicine Hypertension Specialist
DX: N18.30 Chronic kidney disease, stage 3 unspecified (principal)
CPT/HCPCS: 36415; 80048

== ENCOUNTER 2024-09-15 06:01 | Outpatient (REF) | payer MEDICARE, MEDICAID, SELFPAY ==
--- OUTSIDE RECORDS SUMMARY | 2024-09-15 06:04 | XMS_ITS | Data Portability ---
Author Organization [place] - [facility], Allergy Address [address] [address] Care Team Providers Care Horticultural Manager Name Role Phone FAUSTO HOROWITZ Primary Care [...] e otitis externa of bilatera l ears [id number] Completed 201703/11/2024 Other infectiv e otitis externa, bilatera l; Note: Date Diagnose d: 05/28/20 18 2:18 PM (H60.393 ) Not Available [facility] 08/02/202 4 02:18:42 Sensorin eural hearing loss of billauraa l ears [id number] Active 2020 Sensorin eural hearing loss, bilatera l; Note: Date Diagnose d: 1 1:52 PM (H90.3) Not Available [facility] 4 02:18:53 Impacted cerumen of matthewa l ears 79789792459 92462 Active 2020 Impacted cerumen, bilatera l; Note: Date Diagnose d: 1 1:52 PM (H61.23) Not Available [facility] 4 02:18:37 Problem Notes None recorded. Procedures Surgical History Date Name Laterality Status Provider Name and Address Organization Details Recorded Time 4 Cerumen removal without microscope bilat completed KATHY DELACRUZ PA-C [address] [place] [address], [phone], [facility] 07/04/2024 14:34:27 Imaging Results None recorded. [...] eye drops 2017 active Medicatio n ID: [id number] Du ration Value: 14 Prescrib ed By Name: Justo Keene Name: Ciloxan S end Method: E-Prescri bed Subs Allowed: subs OK Specia l Instructi on: Instill 4 drops twice a day into the affected ear. [facility] cationGen ericName: Ciloxan Not Available Not Available Not Available ciproflox acin 500 mg tablet 1 tablet by mouth 07/15 completed Medicatio n ID: [id number] Du ration Value: 14 Prescrib ed By Name: CRYS Santana Name: ciproflox acin HCl Send Method: E-Prescri bed Subs Allowed: subs OK Medica tionGener icName: ciproflox acin HCl Not Available Not Available Not Available amlodipin e 10 mg tablet active Not Available Not Available Not Available metformin 1,000 mg tablet 07/15 completed Medicatio n ID: [id number] Du ration Value: 30 Brand Name: metformin Send Method: E-Prescri bed Subs Allowed: subs OK Medica tionGener icName: metformin Not Available Not Available Not Available lisinopri l 40 mg tablet 09/24 completed Medicatio n ID: [id number] Du ration Value: 30 Brand Name: lisinopri l Send Method: E-Prescri bed Subs Allowed: subs OK Medica tionGener icName: lisinopri l Not Available Not Available Not Available glipizide 5 mg tablet active Not Available Not Available Not Available TobraDex 0.3 %-0.1 % eye drops,manuelito pension 2017 active Medicatio n ID: [id number] Du ration Value: 14 Prescrib ed By [...] Updated DateTime 07/04/2024 165.1 cm 30.8 kg/m2 71732.59 g Adalberto Robles [place] - [facility] 07/04/2024 13:37:43 Social History None recorded. Functional Status None recorded. Mental Status None recorded. Family History Nothing Reported. Medical History No medical history recorded. Past Encounters Encounter ID Performer Location Encounter Start Date Encounter Closed Date Diagnosis/Indication Diagnosis SNOMED-CT Code Diagnosis ICD10 Code Diagnosis Note [id number] TSERING MAHAJAN MD [facility] [address] [place] [address] 07/04/2024 13:21:57 07/04/2024 14:30:39 Impacted cerumen of bilateral ears [id number] 897971 H61.23 Sensorineu ral hearing loss of bilateral ears 055094726 H90.3 Health Concerns Section Related Observation LastModified by Organization Detai ls LastModified Time None Recorded Concern Status LastModified by Organization Details LastModified Time None Recorded Advance Directives Directive None Recorded Payers Encounter Date Sequence Insurance Name Policy Number Policy Correa Covered Member ID Correa Member ID Guarantor Name 07/04/2024 2 [place] [facility] Juan José Muñiz [id number] Juan José Muñiz 07/04/2024 1 [place] [employer] Juan José Muñiz [id number] Juan José Muñiz Notes Date Note Type Note Provider Name and Address Organization Details Recorded Time 07/04/2024 text/html 54 year old male with profound hearing loss and bilateral amplification presents for cerumen removal. Reports no change in hearing. Amplification dispensed from the [employer], and patient feels the aids are working well. Denies otalgia, otorrhea, or tinnitus. Occasional Qtip use in external ear. TSERING MAHAJAN MD [address] [place] [address], [phone] - [facility] 07/04/2024 15:40:09
--- OUTSIDE RECORDS SUMMARY | 2024-09-15 06:04 | XMS_ITS | Clinical Summary ---
Author Organization [facility] Address [address] [place] [address] Phone Care Team Providers Care Hat Binder Name Role Phone Justin Estrada MD Primary Care Provider [phone] Allergies No known active allergies Medications amLODIPine (NORVASC) 10 MG tablet Take 1 tablet by mouth 1 (one) time each day Active atorvastatin (LIPITOR) 20 MG tablet Take 1 tablet by mouth 1 (one) time each day Active Cholecalciferol 125 MCG (5000 UT) tablet Take 1 tablet by mouth 1 (one) time each day Active glipiZIDE (GLUCOTROL) 5 MG tablet Take 0.5 tablets by mouth twice a day Active lisinopril 20 MG tablet Take 0.5 tablets (10 mg total) by mouth 1 (one) time each day 30 tablet 5 03/02/2023 Active Active Problems Problem Noted Date Diagnosed Date Chronic renal insufficiency 10/31/2020 Hypertensive disorder 10/31/2020 Retinal detachment 10/31/2020 Family History Medical History Relation Comments Cancer Father brain Diabetes Father Heart disease Father Kidney disease Father Stroke Father Dementia Mother Hypertension Sibling brother Relation Status Comments Father Mother Alive Sibling Social History Tobacco Use Types Packs/Day Years Used Date Smoking Tobacco: Never Smokeless Tobacco: Never Tobacco Cessation:Counseling Given: No Alcohol Use Standard Drinks/Week Comments No 0 (1 standard drink = 0.6 oz pur e alcohol) Sex and Gender Information Value Date Recorded Sex Assigned at Not on file Legal Sex Male 4:53 PM EST Gender Identity Not on file Sexual Orientation Not on file Last Filed Vital Signs Vital Sign Reading Time Taken Comments Blood Pressure 120/65 03/02/2023 2:49 PM EDT Pulse 68 03/02/2023 2:49 PM EDT Temperature - - Respiratory Rate - - Oxygen Saturation 97% 03/02/2023 2:49 PM EDT Inhaled Oxygen Concentration - - Weight 88.3 kg (194 lb 9.6 oz) 03/02/2023 2:49 P M EDT Height 175.3 cm (5' 9 ) 11/24/2018 12:00 PM EDT Body Mass Index 28.74 11/24/2018 12:00 PM EDT Plan of Treatment Health Maintenance Due Date Last Done Comments Pneumococcal Vaccine: Pediat rics (0 to 5 Years) and At-Risk Patients (6 to 64 Years) (1 of 2 - PCV) 01/12/1974 Hepatitis B Vaccine (1 of 3 - 19+ 3-dose series) 01/12 Colorectal Cancer Screening: Annual FOBT 01/12/2017 Colorectal Cancer Screening: Colonoscopy 01/12/2017 Colorectal Cancer Screening: Sigmoidoscopy 01/12/2017 Influenza Vaccine (#1) 2024 Insurance [facility] Care Teams Hat Binder Relationship Specialty Start Date End Date Justin Estrada MD [address] [place] [address] DRIVE [address] [facility] - General 08/20/20
[2024-09-15 10:02] LABS: MANUAL DIFF FLAG NO
[2024-09-15 10:08] LABS: Basophils Absolute Auto 0.1 X10*3/uL (0.0-0.2); Basophils Percent Auto 0.5 % (0-2); Eosinophils Absolute Auto 0.3 X10*3/uL (0.0-0.4); Eosinophils Percent Auto 2.4 % (0-4); Hemoglobin 15.4 g/dl (14.0-18.0); Imm Gran Abs Auto 0.08 X10*3/uL (0.00-0.03); Imm Gran Pct Auto 0.6 % (0.0-0.4); Lymphocytes Absolute Auto 0.6 X10*3/uL (1.2-4.9); Lymphocytes Percent Auto 4.4 % (20-40); Mean Corpuscular HGB Conc 35.8 g/dl (31.0-36.0); Mean Corpuscular Hemoglobin 30.7 pg (27.0-33.0); Mean Corpuscular Volume 85.8 fL (80.0-98.0); Mean Platelet Volume 10.6 fL (9.4-12.4); Monocytes Percent Auto 7.3 % (2-11); Neutrophils Percent Auto 84.8 % (45-73); Platelet Count 234 X10*3/uL (160-400); Red Blood Count 5.01 X10*6/uL (4.60-5.80); Red Cell Distribution Width 11.8 % (11.0-16.0)
[2024-09-15 10:21] LABS: Alanine Aminotransferase 30 U/L (0-40); Albumin Level 4.3 g/dL (3.5-5.0); Alkaline Phosphatase 88 U/L (39-117); Anion Gap 13 (12-20); Aspartate Amino Transferase 30 U/L (5-37); Bilirubin Total 0.9 mg/dL (0.0-1.0); Blood Urea Nitrogen 31 mg/dL (9-16); Calcium 8.8 mg/dL (8.4-10.2); Carbon Dioxide 22 mmol/L (22-29); Chloride 101 mmol/L (96-108); Estimated Glomerular Filt Rate 50; Glucose Random 182 mg/dL (60-115); Sodium 131 mmol/L (135-145); Total Protein 6.9 g/dL (6.5-8.0)
[2024-09-15 10:47] LABS: Creatinine Urine 58.31 mg/dL; Microalbum/Creatinine Ratio Ur 459.6 ug/mg cr (<30)
[2024-09-15 11:21] LABS: Estimated Average Glucose 166 mg/dL; Hemoglobin A1C 224.3443 umol/L; Hemoglobin A1c % 7.4 % (<6.0); Total Hemoglobin (HGBA1C) 3876.5717 umol/L
== END 2024-09-15 06:02 | disposition home or self-care (01) ==
LOC: HO.HMGCLDS 06:01
PROVIDERS: PCP Internal Medicine; Visit Provider Internal Medicine
DX: E11.22 Type 2 diabetes mellitus with diabetic chronic kidney disease (principal); I12.9 Hypertensive chronic kidney disease with stage 1 through stage 4 chronic kidney disease, or unspecified chronic kidney disease; N18.9 Chronic kidney disease, unspecified
CPT/HCPCS: 36415; 80053; 82043; 82570; 83036; 85025

== ENCOUNTER 2024-10-01 06:40 | Outpatient (REF) | payer MEDICARE, MEDICAID, SELFPAY ==
--- OUTSIDE RECORDS SUMMARY | 2024-10-01 06:42 | XMS_ITS | Clinical Summary ---
Author Organization [facility] Address [address] [place] [address] Phone Care Team Providers Care Worship Pastor Name Role Phone Justin Estrada MD Primary Care Provider [phone] Allergies No known active allergies Medications amLODIPine [...] Sigmoidoscopy 01/12/2017 Influenza Vaccine (#1) 2024 Insurance [facility] Care Teams Worship Pastor Relationship Specialty Start Date End Date Justin Estrada MD [address] [place] [address] DRIVE [address] [facility] PCP - General 08/20/20
--- OUTSIDE RECORDS SUMMARY | 2024-10-01 06:42 | XMS_ITS | Patient Health Record ---
Author Organization [facility] Address [address] [place] [address] Care Team Providers Care Counter Clerk Name Role Phone Justin Estrada MD Primary Care Provider Bertrand Carranza [phone] ALLERGIES No Known Allergies RESULTS Component Value Reference Range Notes Pathology (Not yet reviewed by provider) Interpretation: Performing Lab:[facility], [address] [place] [phone] Notes/Report: Glucose, Whole Blood Reviewed date:06/29/2024 02:22:00 PM Interpretation: Performing Lab:[facility], [address] [place] [phone] Notes/Report: Glucose, Whole Blood 166 60-115 mg/dL METER # : [id number] REASON FOR REFERRAL No Information MEDICATIONS Medication [...] malignant neoplasm of colon (Z12.11) Active confirmed 479909810 Problem Preprocedural examination (Z01.818) Active confirmed Preprocedural examination done ([id number] ) Problem Colon cancer screening (Z12.11) Active confirmed Colon can cer screening (558582161) Problem Family history of colon polyps, unspecified (Z83.719) Active confirmed Family history of polyp of colon (542864486) Problem Diverticulosis of large intestine without perforation or abscess without bleeding (K57.30) Active confirmed Diverticul ar disease of colon (978658096) VITAL SIGNS Temperature 98.0 degrees Fahrenheit 03/02/2024 Blood pressure diastolic 00 mm Hg 03/02/2024 Height 69 in 03/02/2024 Blood pressure systolic 000 mm Hg 03/02/2024 Weight 187 lbs 03/02/2024 BMI 27.61 kg/m2 03/02/2024 Encounters Encounter Location Date Provider Diagnosis [facility] Outpatient [address] [place], [place] [phone] 06/29/2024 Bertrand Musa Colon cancer screeni ng Z12.11 ; Colon polyps K63.5 ; Diverticulosis of large intestine without perforation or abscess without bleeding K57.30 and Other hemorrhoids K64.8 [facility] [address] [place] [address] 03/02/2024 Bertrand Musa Encounter for screen ing [...] Needs cardiology clearance fromNorma Bond NP at [facility] 06/29/2024 Diverticulosis of large intestine without perforation [...] OF [place] [address] [place] [address] [id number] ASHIA BRYSON Self - patient is the insured MEDICAID OF [facility] [address] [place] [address] [id number] ASHIA BRYSON Self - patient is the insured MEDICAL (GENERAL) HISTORY Medical History History ICD Code NIDDM Hypertension Denies [place],CVA,Lung disease,renal disease Hyperlipdemia CKD stage 3 Colonoscopy 12/2018 with a small tubular adenoma Wearing a heart monitor at the 03/02/2024 OV for SOB and irregular heartbeat Blind in right eye Surgical History Surgery Date(Month/Year) Retinal laser 2009 Cleft lip repair Tubes in ears
--- OUTSIDE RECORDS SUMMARY | 2024-10-01 06:42 | XMS_ITS ---
Author Organization [facility] Address [address] [place] [address] Care Team Providers Care Survey Engineer Name Role Phone Justin Estrada MD Primary Care Provider Bertrand Carranza Unavailable [phone] ALLERGIES No Known Allergies REASON FOR VISIT [...] screening (Z12.11) Active confirmed Colon cancer screening (635474541) Problem Family history of colon polyps, unspecified (Z83.719) Active confirmed Family history of polyp of colon (095393894) VITAL SIGNS BMI 27.61 kg/m2 03/02/2024 Blood pressure systolic 000 mm Hg 03/02/20 24 Blood pressure diastolic 00 mm Hg 024 Height 69 in 03/02/2024 Temperature 98.0 degrees Fahrenheit 03/02/20 Weight 187 lbs 03/02/2024 Encounters Encounter Location Date Provider Diagnosis [facility] [address] [place] [address] 03/02/2024 Bertrand Musa Encounter for screen ing [...] Needs cardiology clearance fromNorma Bond [facility] [place] [facility] 03/02/2024 Colon cancer screening (ICD-10 - Z12.11) 03/02/2024 Preprocedural examination (ICD-10 - Z01.818) 03/02/2024 Family history of colon polyps, unspecified (ICD-10 - Z83.719) PLAN OF TREATMENT Treatment Notes Assessment Notes Encounter for screening for malignant neoplasm of colon Do not take the Glipizide the evening before or on the morning of the colonoscopy Needs cardiology clearance Yancy Bond NP [place] [facility] Future Test Test Name Order Date COLONOSCOPY [...]
--- OUTSIDE RECORDS SUMMARY | 2024-10-01 06:42 | XMS_ITS ---
Author Organization [facility] Address [address] [place] [address] Care Team Providers Care Latin American Studies Director Name Role Phone Justin Estrada MD Primary Care Provider Celestinaa Bertrand Joyner Unavailable [phone] REASON FOR VISIT colon cancer screening PROBLEMS Problem Type ICD Code Onset Dates Problem Status W/U Status Risk SNOMED Code Notes Problem Diverticulosis of large intestine without perforation or abscess without bleeding (K57.30) Active confirmed Diverticul ar disease of colon (202583496) Encounters Encounter Location Date Provider Diagnosis [facility] [place] [address] [place], [place] [phone] 06/29/2024 Bertrand Musa Colon cancer scree unique [...]
--- OUTSIDE RECORDS SUMMARY | 2024-10-01 06:42 | XMS_ITS | Data Portability ---
Author Organization [place] - [facility], Allergy Address [address] [address] Care Team Providers Care Reconditioner Name Role Phone FAUSTO HOROWITZ Primary Care Provider [phone] Assessment Encounter Date Assessment Date Assessment LastModified [...] e otitis externa of bilatera l ears [id number] 41476 Completed 201703/11/2024 Other infectiv e otitis externa, bilatera l; Note: Date Diagnose d: 05/28/20 18 2:18 PM (H60.393 ) Not Available [facility] 08/02[facility]202 4 02:18:42 Sensorin eural hearing loss of billauraa l ears 559645157 Active 2020 Sensorin eural hearing loss, bilatera l; Note: Date Diagnose d: 1 1:52 PM (H90.3) Not Available [facility] 4 02:18:53 Impacted cerumen of matthewa l ears 82496945195 45599 Active 2020 Impacted cerumen, bilatera l; Note: Date Diagnose d: 1 1:52 PM (H61.23) Not Available [facility] 4 02:18:37 Problem Notes None recorded. Procedures Surgical History Date Name Laterality Status Provider Name and Address Organization Details Recorded Time 4 Cerumen removal without microscope bilat completed KATHY DELACRUZ PA-C [address] [place] [address], [phone], [facility] 07/04/2024 14:34:27 Imaging Results None recorded. [...] eye drops 2017 active Medicatio n ID: [id number] Du ration Value: 14 Prescrib ed By Name: Justo Keene Name: Ciloxan S end Method: E-Prescri bed Subs Allowed: subs OK Specia l Instructi on: Instill 4 drops twice a day into the affected ear. [facility] cationGen ericName: Ciloxan Not Available Not Available Not Available ciproflox acin 500 mg tablet 1 tablet by mouth 07/15 completed Medicatio n ID: [id number] Du ration Value: 14 Prescrib ed By Name: CRYS Santana Name: ciproflox acin HCl Send Method: E-Prescri bed Subs Allowed: subs OK Medica tionGener icName: ciproflox acin HCl Not Available Not Available Not Available amlodipin e 10 mg tablet active Not Available Not Available Not Available metformin 1,000 mg tablet 07/15 completed Medicatio n ID: [id number] Du ration Value: 30 Brand Name: metformin Send Method: E-Prescri bed Subs Allowed: subs OK Medica tionGener icName: metformin Not Available Not Available Not Available lisinopri l 40 mg tablet 09/24 completed Medicatio n ID: [id number] Du ration Value: 30 Brand Name: lisinopri l Send Method: E-Prescri bed Subs Allowed: subs OK Medica tionGener icName: lisinopri l Not Available Not Available Not Available glipizide 5 mg tablet active Not Available Not Available Not Available TobraDex 0.3 %-0.1 % eye drops,manuelito pension 2017 active Medicatio n ID: [id number] Du ration Value: 14 Prescrib ed By [...] Updated DateTime 07/04/2024 165.1 cm 30.8 kg/m2 35403.59 g Adalberto Robles [place] - [facility] 07/04/2024 13:37:43 Social History None recorded. Functional Status None recorded. Mental Status None recorded. Family History Nothing Reported. Medical History No medical history recorded. Past Encounters Encounter ID Performer Location Encounter Start Date Encounter Closed Date Diagnosis/Indication Diagnosis SNOMED-CT Code Diagnosis ICD10 Code Diagnosis Note [id number] TSERING MAHAJAN MD [facility] [address] [place] [address] 07/04/2024 13:21:57 07/04/2024 14:30:39 Impacted cerumen of bilateral ears [id number] 148692 H61.23 Sensorineu ral hearing loss of bilateral ears 154629105 H90.3 Health Concerns Section Related Observation LastModified by Organization Detai ls LastModified Time None Recorded Concern Status LastModified by Organization Details LastModified Time None Recorded Advance Directives Directive None Recorded Payers Encounter Date Sequence Insurance Name Policy Number Policy Correa Covered Member ID Correa Member ID Guarantor Name 07/04/2024 2 [place] [facility] Juan José Muñiz [id number] Juan José Muñiz 07/04/2024 1 [place]ICARE B-[place] [employer] Juan José Muñiz [id number] Juan José Muñiz Notes Date Note Type Note Provider Name and Address Organization Details Recorded Time 07/04/2024 text/html 54 year old male with profound hearing loss and bilateral amplification presents for cerumen removal. Reports no change in hearing. Amplification dispensed from the [employer], and patient feels the aids are working well. Denies otalgia, otorrhea, or tinnitus. Occasional Qtip use in external ear. TSERING MAHAJAN MD [address] [place] [address], [phone] - [facility] 07/04/2024 15:40:09
[2024-10-01 11:27] LABS: Hematocrit 39.8 % (42.0-52.0); Mean Corpuscular HGB Conc 35.2 g/dl (31.0-36.0); Mean Corpuscular Hemoglobin 30.2 pg (27.0-33.0); Mean Platelet Volume 10.5 fL (9.4-12.4); Platelet Count 223 X10*3/uL (160-400); Red Blood Count 4.63 X10*6/uL (4.60-5.80); White Blood Count 6.4 X10*3/uL (4.8-10.8)
[2024-10-01 11:33] LABS: Appearance Urine Clear; Color Urine Yellow; Glucose Urine UA Negative (Negative); Leukocyte Esterase Urine Moderate (2+) (Negative); Nitrite Urine Negative (Negative); UMIC TRIGGER UA YES; Urine Blood Negative (Negative); Urine Ketones Negative (Negative); Urine Protein Trace mg/dL (Neg-Trace)
[2024-10-01 11:35] LABS: Anion Gap 14 (12-20); Blood Urea Nitrogen 31 mg/dL (9-16); Calcium 9.4 mg/dL (8.4-10.2); Carbon Dioxide 25 mmol/L (22-29); Chloride 105 mmol/L (96-108); Estimated Glomerular Filt Rate 50; Glucose Random 152 mg/dL (60-115); Potassium 5.5 mmol/L (3.3-5.1); Sodium 138 mmol/L (135-145)
[2024-10-01 11:40] LABS: Bacteria Urine None Seen (None Seen); Hyaline Casts Urine 0-2 /LPF (0-2); RBC Urine 0-2 /HPF (0-2); Squamous Epithelial Cell Urine 0-2 /HPF (0-2)
[2024-10-01 12:01] LABS: Creatinine Urine 52.49 mg/dL; Total Protein Urine Random 19 mg/dL (<12)
== END 2024-10-01 06:41 | disposition home or self-care (01) ==
LOC: HO.HMGCLDS 06:40
PROVIDERS: PCP Internal Medicine; Visit Provider Internal Medicine Hypertension Specialist
DX: N18.30 Chronic kidney disease, stage 3 unspecified (principal)
CPT/HCPCS: 36415; 80048; 81001; 82570; 84156; 85027

== ENCOUNTER 2024-10-04 09:46 | Outpatient (AMB) | payer MEDICARE, MEDICAID, SELFPAY ==
[2024-10-04 09:50] VITALS: BP 104/60; PULSE 61; O2SAT 97; BMI 28.2
--- NOTE | 2024-10-04 09:50 | HO.NEPHOV ---
Vital Signs 10/04/24 09:50 Height 5 ft 9 in Weight 191 lb BMI 28.2 BP 104/60 Blood Pressure Location Rt brachial Position Sitting Pulse 61 Pulse Source Pulse Oximeter Pulse Oximetry (%) 97 Oxygen Delivery Method Room Air Intake Visit Reasons: CKD/ Conf Environmental Engineering Technician Required: No Accompanied by: Self / Same As Patient Allergies No Known Allergies [No Known Allergies*] Allergy (Verified 10/04/24 09:53) Medication List - Last Reconciled 10/04/24 by Juaquin Ozuna MD amlodipine 10 mg PO DAILY atorvastatin 20 mg PO DAILY cholecalciferol (vitamin D3) 125 mcg PO DAILY glipizide 5 mg PO DAILY lisinopril 10 mg PO DAILY HPI Comments Details: Juan José is a middle-aged man with a history of diabetes mellitus and CKD. From renal standpoint is doing very well. He has CKD with a baseline creatinine 1.6 mg/dL. Juan José has a history of diabetes mellitus for more than 10 years complicated by retinopathy. 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 History of hypertension for more than 10 years which has been well controlled as well. Renal ultrasonogram showed a large postvoid residual back in 2018. However repeat renal ultrasonogram was unremarkable in 2020. In 2019 lisinopril was decreased by 50% due to elevation in creatinine and relatively low blood pressure. Since then serum creatinine stable and blood pressure has been well controlled as well. Today he has no cough HAs shortness of breath on exertion. Undergoing cardiac evaluation 06/28/24 Waiting for colonscopy tomorrow and CTA of coronaries next month 10/04/24 Doing well No new issues [facility] Medical History Vision loss of right eye Hyperlipidemia Accelerated junctional rhythm PAC (premature atrial contraction) Palpitations Diabetes Chronic renal insufficiency HTN (hypertension) Surgical History H/O colonoscopy History of placement of ear tubes History of repair of cleft lip Social History Household Members: Spouse Are you a primary furnace caretaker to a significant other at home: No Alcohol intake: never Patient Tobacco Use Status: Never used Tobacco e-Cigarette/Vaping Use: Never Used Physical Exam Vital Signs: Last Vital Signs Pulse 61 10/04/24 09:50 BP 104/60 10/04/24 09:50 Pulse Ox 97 10/04/24 09:50 Oxygen Delivery Method Room Air 10/04/24 09:50 BMI result Body Mass Index 28.2 Const General: comfortable Nutritional Appearance: well nourished Orientation/consciousness: patient oriented x3 HEENT Head: No normal to inspection Mouth: moist mucous membranes Neck Neck: Yes supple and Yes no JVD Resp Auscultation: clear to auscultation bilaterally and no rales Cardio Jugular venous distension: no JVD Palpation: no palpable S3 and no palpable S4 Heart sounds: no rubs GI Palpation (GI): Soft to palpation and nontender Percussion: No Fluid wave present General: Yes no CVA tenderness Back/Spine/Pelvis Back: no CVA tenderness Skin General skin exam: no rashes or lesions noted Neuro General: patient oriented x3 Extrem General: Yes no pedal edema and No clubbing Results Reviewed Nephrology Results: Hgb 14.0 g/dl (14.0-18.0) 10/01/24 WBC 6.4 X10*3/uL (4.8-10.8) 10/01/24 Plt Count 223 X10*3/uL (160-400) 10/01/24 Sodium 138 mmol/L (135-145) 10/01/24 Potassium 5.5 mmol/L (3.3-5.1) H 10/01/24 Chloride 105 mmol/L (96-108) 10/01/24 Carbon Dioxide 25 mmol/L (22-29) 10/01/24 BUN 31 mg/dL (9-16) H 10/01/24 Creatinine 1.47 mg/dL (0.5-1.4) H 10/01/24 Calcium 9.4 mg/dL (8.4-10.2) 10/01/24 Urine Protein Trace mg/dL (Neg-Trace) 10/01/24 Urine Creatinine 52.49 mg/dL 10/01/24 Assessment & Plan Assessment & Plan (1) CKD (chronic kidney disease) stage 3, GFR 30-59 ml/min: Code(s): N18.30 - Chronic kidney disease, stage 3 unspecified Category: Medical Plan: . CKD 3 in a setting of longstanding diabetes mellitus hypertension. Renal function stable at this time. Goal is to slow the proximal disease. Continue with Shravan inhibitor for renal protection. He will benefit from an SGLT 2 inhibitor. . (2) HTN (hypertension): Code(s): I10 - Essential (primary) hypertension Category: Medical Plan: Blood pressure is well controlled. Continue with current antihypertensive regimen. Discussed low-sodium diet. (3) Diabetes mellitus with chronic kidney disease: Code(s): E11.22 - Type 2 diabetes mellitus with diabetic chronic kidney disease Category: Medical Plan: Goal is to maintain A1c less than 7%. Again we discuss the importance of diet. (4) Hyperkalemia: Code(s): E87.5 - Hyperkalemia Category: Medical Plan: History of hyperkalemia in the setting of chronic kidney disease and continues of Shravan inhibitor. potassium potassium has improved. He should stay on low-potassium diet. 10/04/24 Recheck today If elevated, will add Tessapr Orders: Orders Potassium Today N18.30 - Chronic kidney disease, stage 3 unspecified Basic Metabolic Panel 3 Months N18.30 - Chronic kidney disease, stage 3 unspecified Coding Level of Care Code Est Pt Level 4 (91651) Diagnoses CKD (chronic kidney disease) stage 3, GFR 30-59 ml/min N18.30 HTN (hypertension) I10 Diabetes mellitus with chronic kidney disease E11.22 Hyperkalemia E87.5
--- OUTSIDE RECORDS SUMMARY | 2024-10-04 11:05 | XMS_ITS | Data Portability ---
Author Organization [place] - [facility], Allergy Address [address] [address] Care Team Providers Care Administrative Representative Name Role Phone FAUSTO HOROWITZ Primary Care [...] e otitis externa of bilatera l ears [id number] Completed 201703/11/2024 Other infectiv e otitis externa, bilatera l; Note: Date Diagnose d: 05/28/20 18 2:18 PM (H60.393 ) Not Available [facility] [place] [facility] 08/02/202 4 02:18:42 Sensorin eural hearing loss of billauraa l ears [id number] Active 2020 Sensorin eural hearing loss, bilatera l; Note: Date Diagnose d: 1 1:52 PM (H90.3) Not Available [facility] [place] [facility] 4 02:18:53 Impacted cerumen of matthewa l ears [id number] 04848 Active 2020 Impacted cerumen, bilatera l; Note: Date Diagnose d: 1 1:52 PM (H61.23) Not Available [facility] 4 02:18:37 Problem Notes None recorded. Procedures Surgical History Date Name Laterality Status Provider Name and Address Organization Details Recorded Time 4 Cerumen removal without microscope bilat completed KATHY DELACRUZ PA-C [address] [place] [address], [phone], [facility] 07/04/2024 14:34:27 Imaging Results None recorded. Procedure Notes None recorded. Medical Equipment None Reported. Medications Name Sig Start Date Stop Date Status Note LastModified by Organization Details LastModified Time atorvasta tin 20 mg tablet active Not Available Not Available Not Available lisinopri l 20 mg tablet active Not Available Not Available Not Available Ciloxan 0.3 % eye drops 2017 active Medicatio n ID: [id number] Du ration Value: 14 Prescrib ed By Name: Justo Keene Name: Ciloxan S end Method: E-Prescri bed Subs Allowed: subs OK Specia l Instructi on: Instill 4 drops twice a day into the affected ear. [facility] cationGen ericName: Ciloxan Not Available Not Available Not Available ciproflox acin 500 mg tablet 1 tablet by mouth 07/15 completed Medicatio n ID: [id number] Du ration Value: 14 Prescrib ed By Name: CRYS Santana Name: ciproflox acin HCl Send Method: E-Prescri bed Subs Allowed: subs OK Medica tionGener icName: ciproflox acin HCl Not Available Not Available Not Available amlodipin e 10 mg tablet active Not Available Not Available Not Available metformin 1,000 mg tablet 07/15 completed Medicatio n ID: [id number] Du ration Value: 30 Brand Name: metformin Send Method: E-Prescri bed Subs Allowed: subs OK Medica tionGener icName: metformin Not Available Not Available Not Available lisinopri l 40 mg tablet 09/24 completed Medicatio n ID: [id number] Du ration Value: 30 Brand Name: lisinopri l Send Method: E-Prescri bed Subs Allowed: subs OK Medica tionGener icName: lisinopri l Not Available Not Available Not Available glipizide 5 mg tablet active Not Available Not Available Not Available TobraDex 0.3 %-0.1 % eye drops,manuelito pension 2017 active Medicatio n ID: [id number] Du ration Value: 14 Prescrib ed By [...] Updated DateTime 07/04/2024 165.1 cm 30.8 kg/m2 09281.59 g Adalberto Robles [place] - [facility] 07/04/2024 13:37:43 Social History None recorded. Functional Status None recorded. Mental Status None recorded. Family History Nothing Reported. Medical History No medical history recorded. Past Encounters Encounter ID Performer Location Encounter Start Date Encounter Closed Date Diagnosis/Indication Diagnosis SNOMED-CT Code Diagnosis ICD10 Code Diagnosis Note [id number] TSERING MAHAJAN MD [facility] [address] [place] [address] 07/04/2024 13:21:57 07/04/2024 14:30:39 Impacted cerumen of bilateral ears [id number] 622782 H61.23 Sensorineu ral hearing loss of bilateral ears [id number] H90.3 Health Concerns Section Related Observation LastModified by Organization Detai ls LastModified Time None Recorded Concern Status LastModified by Organization Details LastModified Time None Recorded Advance Directives Directive None Recorded Payers Encounter Date Sequence Insurance Name Policy Number Policy Correa Covered Member ID Correa Member ID Guarantor Name 07/04/2024 2 [place] [facility] Juan José Muñiz [id number] Juan José Muñiz 07/04/2024 1 [place]IC[place] [employer] Juan José Muñiz [id number] Juan José Muñiz Notes Date Note Type Note Provider Name and Address Organization Details Recorded Time 07/04/2024 text/html 54 year old male with profound hearing loss and bilateral amplification presents for cerumen removal. Reports no change in hearing. Amplification dispensed from the [employer] [facility], and patient feels the aids are working well. Denies otalgia, otorrhea, or tinnitus. Occasional Qtip use in external ear. TSERING MAHAJAN MD [address] [place] [address], [phone] - [facility] 07/04/2024 15:40:09
--- OUTSIDE RECORDS SUMMARY | 2024-10-04 11:05 | XMS_ITS | Clinical Summary ---
Author Organization [facility] Address [address] [place] [address] Phone Care Team Providers Care Loss Prevention Associate Name Role Phone Justin Estrada MD Primary Care Provider [phone] Allergies No known active allergies Medications amLODIPine [...] Sigmoidoscopy 01/12/2017 Influenza Vaccine (#1) 2024 Insurance [facility] Care Teams Loss Prevention Associate Relationship Specialty Start Date End Date Justin Estrada MD [address] [place] [address] [address] [facility] P[facility] - General 08/20/20
== END 2024-10-04 10:10 | disposition home or self-care (01) ==
PROVIDERS: PCP Internal Medicine; Visit Provider Internal Medicine Hypertension Specialist
DX: E11.22 Type 2 diabetes mellitus with diabetic chronic kidney disease (principal); N18.30 Chronic kidney disease, stage 3 unspecified; I10 Essential (primary) hypertension; E87.5 Hyperkalemia
CPT/HCPCS: 99214

== ENCOUNTER 2024-10-04 10:15 | Outpatient (REF) | payer MEDICARE, MEDICAID, SELFPAY ==
--- OUTSIDE RECORDS SUMMARY | 2024-10-04 12:03 | XMS_ITS | Clinical Summary ---
Author Organization [facility] Address [address] [place] [address] Phone Care Team Providers Care Matrix Drier Tender Name Role Phone Justin Estrada MD Primary Care Provider [phone] Allergies No known active allergies Medications amLODIPine [...] Sigmoidoscopy 01/12/2017 Influenza Vaccine (#1) 2024 Insurance [facility] [place] [address] [facility] [place] [address] Care Teams Matrix Drier Tender Relationship Specialty Start Date End Date Justin Estrada MD [address] [place] [address] [address] [facility] P[facility] - General 08/20/20
[2024-10-04 13:06] LABS: Potassium 5.2 mmol/L (3.3-5.1)
== END 2024-10-04 10:16 | disposition home or self-care (01) ==
LOC: HO.10HDL 10:15
PROVIDERS: Visit Provider Internal Medicine Hypertension Specialist
DX: I12.9 Hypertensive chronic kidney disease with stage 1 through stage 4 chronic kidney disease, or unspecified chronic kidney disease (principal); E11.22 Type 2 diabetes mellitus with diabetic chronic kidney disease; N18.30 Chronic kidney disease, stage 3 unspecified; E78.5 Hyperlipidemia, unspecified
CPT/HCPCS: 36415; 84132; 99212

== ENCOUNTER 2024-10-13 13:09 | Outpatient (AMB) | payer MEDICARE, MEDICAID, SELFPAY ==
[2024-10-13 13:44] VITALS: BP 142/60; PULSE 66; BMI 28.4
--- NOTE | 2024-10-13 13:44 | A.OFFVIS_ITS ---
Vital Signs 10/13/24 13:44 Height 5 ft 9 in Weight 192 lb 3.889 oz BMI 28.4 BP 142/60 H Blood Pressure Location Lt brachial Position Sitting Pulse 66 Pulse Source Pulse Oximeter Intake Visit Reasons: 6M follow up s/p cornary CTA Process Improvement Engineer Required: No Allergies No Known Allergies [No Known Allergies*] Allergy (Verified 10/13/24 13:46) Medication List - Last Reconciled 10/13/24 by Norma Bond, CERTIFIED MEDICAL DOSIMETRIST-C amlodipine 10 mg PO DAILY atorvastatin 20 mg PO DAILY cholecalciferol (vitamin D3) 125 mcg PO DAILY glipizide 5 mg PO DAILY lisinopril 10 mg PO DAILY sodium zirconium cyclosilicate (Lokelma) 5 grams PO Q OTHER DAY HPI HPI 6M follow up s/p cornary CTA: Details: Juan José is a 54-year-old male with past medical history of diabetes, hypertension, hyperlipidemia, chronic kidney disease who is undergoing cardiac evaluation for shortness of breath. He had very poor exercise tolerance during his stress test. He was also noted to have some accelerated junctional rhythm. He recently had CTA of coronaries and now presents for follow up. Today he reports that he continues to notice shortness of breath when he is at work. This symptom is unchanged since his last visit in May. 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 He has no PND, orthopnea or edema. No chest discomfort at rest or activity. He has brief heart palpitations, no recent lightheadedness, no presyncope, syncope, falls. He reports med compliance. [facility] Medical History Vision loss of right eye Hyperlipidemia Accelerated junctional rhythm PAC (premature atrial contraction) Palpitations Diabetes Chronic renal insufficiency HTN (hypertension) Surgical History H/O colonoscopy History of placement of ear tubes History of repair of cleft lip Social History Household Members: Spouse Are you a primary home care nurse to a significant other at home: No Alcohol intake: never Patient Tobacco Use Status: Never used Tobacco e-Cigarette/Vaping Use: Never Used Review of Systems ENT Denies dizziness Card Denies chest pain, Denies chest pain at rest, Denies chest pain with activity, Denies rapid heart rate, Denies pedal edema, Denies edema, Denies leg edema, Denies lightheadedness, Denies palpitations, Denies dyspnea, Reports dyspnea on exertion and Denies orthopnea Resp Denies cough, Denies dyspnea and Reports dyspnea on exertion GI Denies hematochezia and Denies change in stool character Musc Denies abnormal gait, Reports limited range of motion, Reports muscle cramps, Denies muscle weakness, Denies numbness, Denies radiating pain into limb, Denies stiffness and Denies tingling Neuro Denies abnormal gait, Denies dizziness, Denies numbness and Denies tingling Endo Denies palpitations Physical Exam Vital Signs: Last Vital Signs Pulse 66 10/13/24 13:44 BP 142/60 H 10/13/24 13:44 BMI result Body Mass Index 28.4 Const General: cooperative, healthy appearing, comfortable and no acute distress Orientation/consciousness: patient oriented x3 Neck Neck: Yes normal visual inspection Resp Effort & Inspection: normal respiratory effort Auscultation: clear to auscultation bilaterally, no rales, no rhonchi and no wheezes Cardio Jugular venous distension: no JVD Rate: regular rate Rhythm: regular rhythm Heart sounds: S1 normal heart sound present, S2 normal heart sound present, no murmurs and no rubs Neuro General: patient oriented x3 Extrem General: Yes normal to inspection Psych Appearance: grossly normal Mental Status: mental status grossly normal Speech and movement: Normal speech and movement present Assessment & Plan Assessment & Plan (1) SOB (shortness of breath) on exertion: Code(s): R06.02 - Shortness of breath Category: Medical Plan: Shortness of breath with exertional activities. He does have multiple cardiac risk factors including hypertension, hyperlipidemia, diabetes, chronic kidney disease. Echocardiogram on 01/25/2024 showing EF 65-70%, mild septal and basal asymmetric hypertrophy, mild calcification of the aortic valve. A nuclear stress test was done 01/25/2024 showing exercise 3 minutes 40 seconds with shortness of breath and 5/10 chest tightness with intermittent junctional rhythm at rest, accelerated junctional during exercise, no ischemic EKG changes and normal myocardial perfusion imaging. He then had CTA of the coronaries arteries on 07/27/2024 which shows minimal to mild stenosis of the left main, lad, left circumflex and RCA. It does note that the degree of stenosis is difficult to determine. Poor quality study due to cardiac motion and blooming artifact from calcified plaques. Will review with his primary manager semiconductor regarding possible need for cardiac catheterization. He is not on aspirin. Will check with his threat analyst to see if this is okay for him to take. Continue atorvastatin with ideal LDL goal less than 70. Labs done 09/27/2023 showed LDL 81 I will increase his atorvastatin up to mg daily. Will avoid beta-ahmet at present as his last Holter showed frequent sinus bradycardia. Continue lisinopril and amlodipine. Signs and symptoms of angina reviewed with him. Cardiology follow-up 6 months, sooner if he does undergo cardiac catheterization procedure. (2) HTN (hypertension): Code(s): I10 - Essential (primary) hypertension Category: Medical Plan: Mild elevation today. Blood pressure normally is well controlled. Follows with Nephrology as well. Continue current med management. (3) Diabetes mellitus with chronic kidney disease: Code(s): E11.22 - Type 2 diabetes mellitus with diabetic chronic kidney disease Category: Medical Plan: Hemoglobin A1c goal less than 7. Followed by his PCP. (4) PAC (premature atrial contraction): Code(s): I49.1 - Atrial premature depolarization Category: Medical Plan: Frequent PACs noted on Holter monitor, 16.2% of time, 9 SVT runs, longest 12 beats. Reviewed caffeine reduction. Less palpitations since he has been drinking less coffee. (5) Accelerated junctional rhythm: Code(s): I49.8 - Other specified cardiac arrhythmias Category: Medical Plan: As above, noted during stress test. Plan Time spent on chart review, documentation, interview and assessment Medications: New atorvastatin dose increase 40 mg PO BEDTIME 90 tabs 3RF Coding Level of Care Code Est Pt Level 4 (04816) Complex EM visit Add On G2211 Diagnoses SOB (shortness of breath) on exertion R06.02 HTN (hypertension) I10 Diabetes mellitus with chronic kidney disease E11.22 PAC (premature atrial contraction) I49.1 Accelerated junctional rhythm I49.8 Time Spent (min) 28
--- OUTSIDE RECORDS SUMMARY | 2024-10-13 15:56 | XMS_ITS ---
Author Organization [facility] Address [address] [place] [address] Care Team Providers Care Senior Web Designer Name Role Phone Justin Estrada MD Primary Care Provider Celestinaa Bertrand Joyner Unavailable [phone] REASON FOR VISIT colon cancer screening Problems Problem Type SNOMED Code ICD Code Onset Dates Problem Status W/U Status Risk Notes Problem Diverticular disease of colon ([id number]) Diverticulosis of large intestine without perforation or abscess without bleeding (K57.30) Active confirmed Encounters Encounter Location Date Provider Diagnosis [facility] Outpatient [address] [place] [phone] 06/29/2024 Bertrand Musa Colon cancer scree unique [...] Information Progress Notes * ASHIA BRYSONDOB:1970 ([age] yo M)Acc No.[id number]:06/29/2024 COLON WITH MAC Patient:?ASHIA BRYSON Provider:?Bertrand Musa MD :1970???Age:54 Y???Sex:Male John e:06/29/2024 Address: [place], [id number] Pcp:Justin Estrada MD Subjective: * Chief Complaints: * ???1. Colon cancer screening . * Medical History:? Objective: * Vitals:? Assessment: * Assessment: 1.?Colon cancer screening - Z12.11 (Primary)???2.?Colon polyps - K63.5???3.?Diverticulosis of large intestine without perforation or abscess without bleeding - K57.30???4.?Other hemorrhoids - K64.8??? Plan: * Treatment: * Procedure Codes:?46726 LESIO N REMOVAL COLONOSCOPY, Modifiers: PT , 0529F INTRVL 3+YRS PTS CLNSCP DOCD, 0528F RCMND FLW-UP 10 YRS DOCD, Modifiers: 1P * * The named appointment provid er may or may not be the originator of this progress note, and it is not deemed complete until electronically signed by the appointment provider. Sign off status: Pending * Provider:?Bertrand Musa MD Date:? 024 Generated for Kristen lopez/Emerson/eTransmitting on:?10/13/2024 03:56 PM EST
--- OUTSIDE RECORDS SUMMARY | 2024-10-13 15:57 | XMS_ITS | Clinical Summary ---
Author Organization [facility] Address [address] [place] [address] Phone Care Team Providers Care Stretcher Operator Name Role Phone Justin Estrada MD Primary Care Provider [phone] Allergies No known active allergies Medications amLODIPine [...] Sigmoidoscopy 01/12/2017 Influenza Vaccine (#1) 2024 Insurance [facility] Care Teams Stretcher Operator Relationship Specialty Start Date End Date Justin Estrada MD [address] [place] [address] [address] [facility] PCP - General 08/20/20
--- OUTSIDE RECORDS SUMMARY | 2024-10-13 15:57 | XMS_ITS ---
Author Organization [facility] Address [address] [place] [address] Care Team Providers Care Industrial Engineering Technologist Name Role Phone Justin Estrada MD Primary Care Provider Bertrand Carranza Unavailable [phone] Allergies No Known Allergies REASON FOR VISIT Patient presents today for a COLON SCREENING Medications Medication SIG (Take, Route, Frequency, Duration) Notes [...] 1 tablet Orally Once a day Active Social History Tobacco Use: Social History Observation Description Date Details (start date - stop date) Never Smoker NA - NA Tobacco Use/Smoking Question Answer Notes Patient is a nonsmoker Alcohol Screen Question Answer Notes Did you have a drink containing alcohol in the p ast year? No Points 0 Interpretation Negative Section Notes: Nonsmoker; no sig alcohol Problems Problem Type SNOMED Code ICD Code Onset Dates Problem Status W/U Status Risk Notes Problem Colon cancer screening (729910851) Colon cancer screening (Z12.11) Active confirmed Problem Family history of polyp of colon (291516856) Family history of colon polyps, unspecified (Z83.719) Active confirmed Vital Signs Temperature 98.0 degrees Fahrenheit 03/02/20 24 Blood pressure systolic 000 mm Hg 03/02/20 Blood pressure diastolic 00 mm Hg 024 Height 69 in 03/02/2024 Weight 187 lbs 03/02/2024 BMI 27.61 kg/m2 03/02/2024 Encounters Encounter Location Date Provider Diagnosis [facility] [address] [place] [address] 03/02/2024 Bertrand Musa Encounter for screen ing for malignant neoplasm of colon Z12.11 ; Colon cancer screening Z12.11 ; Preprocedural examination Z01.818 and Family history of colon polyps, unspecified Z83.719 Assessments Encounter Date Diagnosis (ICD Code) Assessment Notes Treatment Notes Treatment Clinical Notes Section Notes 03/02/2024 Encounter for screening for malignant neoplasm of colon (ICD-10 - Z12.11) Do not take the Glipizide the evening before or on the morning of the colonoscopy Needs cardiology clearance fromNorma Bond NP at [facility] Overall, Ashia appears well and is not having any new or worrisome GI complaints. Given his age, his good clinical appearance, his family history of colon polyps, and his own history of a tubular adenoma removed over 5 years ago, I did recommend a followup colonoscopy for further screening purposes. We did review the rationale for that regard to colon cancer prevention. Full consent was obtained for this, including risks of bleeding and perforation. The procedure will be done monitored anesthesia care. He was given the below instructions regarding adjustment of his diabetes medication for the procedure. Ashia was comfortable with this plan. Thank you again for allowing me to participate in Ashia's care. I shall continue to keep you advised of his progress. 03/02/2024 Colon cancer screening (ICD-10 - Z12.11) Overall, Ashia appears well and is not having any new or worrisome GI complaints. Given his age, his good clinical appearance, his family history of colon polyps, and his own history of a tubular adenoma removed over 5 years ago, I did recommend a followup colonoscopy for further screening purposes. We did review the rationale for that regard to colon cancer prevention. Full consent was obtained for this, including risks of bleeding and perforation. The procedure will be done monitored anesthesia care. He was given the below instructions regarding adjustment of his diabetes medication for the procedure. Ashia was comfortable with this plan. Thank you again for allowing me to participate in Ashia's care. I shall continue to keep you advised of his progress. 03/02/2024 Preprocedural examination (ICD-10 - Z01.818) Overall, Ashia appears well and is not having any new or worrisome GI complaints. Given his age, his good clinical appearance, his family history of colon polyps, and his own history of a tubular adenoma removed over 5 years ago, I did recommend a followup colonoscopy for further screening purposes. We did review the rationale for that regard to colon cancer prevention. Full consent was obtained for this, including risks of bleeding and perforation. The procedure will be done monitored anesthesia care. He was given the below instructions regarding adjustment of his diabetes medication for the procedure. Ashia was comfortable with this plan. Thank you again for allowing me to participate in Ashia's care. I shall continue to keep you advised of his progress. 03/02/2024 Family history of colon polyps, unspecified (ICD-10 - Z83.719) Overall, Ashia appears well and is not having any new or worrisome GI complaints. Given his age, his good clinical appearance, his family history of colon polyps, and his own history of a tubular adenoma removed over 5 years ago, I did recommend a followup colonoscopy for further screening purposes. We did review the rationale for that regard to colon cancer prevention. Full consent was obtained for this, including risks of bleeding and perforation. The procedure will be done monitored anesthesia care. He was given the below instructions regarding adjustment of his diabetes medication for the procedure. Ashia was comfortable with this plan. Thank you again for allowing me to participate in Ashia's care. I shall continue to keep you advised of his progress. Plan Of Treatment Treatment Notes Assessment Notes Encounter for screening for malignant neoplasm of colon Do not take the Glipizide the evening before or on the morning of the colonoscopy Needs cardiology clearance fromNorma Bond NP at [facility] Future Test Test Name Order Date COLONOSCOPY 03/02/2024 Next Appt Details Follow Up: prn, Reason: Progress Notes * ASHIA BRYSONDOB:1970 ([age] yo M)Acc No.[id number]:03/02/2024 Progress Notes Patient:?ASHIA BRYSON Provider:?Bertrand Musa MD :1970???Age:54 Y???Sex:Male John e:03/02/2024 Address:[address] [place], [place] [id number] Pcp:Justin Estrada MD Subjective: * Chief Complaints: * ???Patient presents today fo r a COLON SCREENING * HPI: ???incontinence:? I saw Ashia in the office today for evaluation of his personal history of a tubular adenoma of the colon, family history of colon polyps, and need for colorectal cancer screening. ?I last saw Ashia in December of 2018, at which time he underwent an initial screening colonoscopy with removal of a small tubular adenoma. He presently feels well. He enjoys a good appetite, without any significant heartburn or dysphagia. His bowel movements have been regular and without any signs of bleeding. He denies any jaundice, abdominal pain, nor unintentional weight loss. His family history is notable for a brother having had tubular adenomas removed. There is no known family history of colorectal cancer. Laboratories earlier this year revealed a normal CBC and normal LFTs. * ROS:?General/Constitutional:?Change in appetite?denies.?Chills?denies.?Fatigue?denies.?Ophthalmologic:?Comments?all negative.?ENT:?Comments?all negative.?Respiratory:?hemoptysis?denies.?Cough?denies.?Cardiovascular:?Chest pain?denies.?Orthopnea?denies.?Gastrointestinal:?Comments?See HPI for details.?Genitourinary:?Hematuria?denies.?Dysuria?denies.?Musculoskeletal:?Painful joints?denies.?Weakness?denies.?Skin:?Itching?denies.?Rash?denies.?Neurologic:?Headache?denies.?Seizures?denies.?Psychiatric:?Comments?all negative.? * Medical History:? * Surgical History:?Retinal la ser 2010Cleft lip repair Tubes in ears * Hospitalization/Major Diagno stic Procedure:?No Hospitalization History. * Family History:?Father: dece ased, diagnosed with HTN (hypertension), Diabetes, Heart disease.?Mother: alive, diagnosed with HTN (hypertension).? No colon cancer, but his brother has a history of multiple tubular adenomas removed in his early 50's. No family history of liver cancer. * Social History:?Tobacco Use:?Tobacco Use/Smoking?Patient is a?nonsmoker.?Drugs/Alcohol:?Alcohol Screen?Did you have a drink containing alcohol in the past year??No,?Points?0,?Interpretation?Negative.?Miscellaneous:?Marital status: . 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 ???Nonsmoker; no sig alcohol. * Medications:?TakingglipiZIDE 5 MG Tablet 1 tablet Orally Once a dayAtorvastatin Calcium 20 MG Tablet 1 tablet Orally Once a dayLisinopril 10 MG Tablet 1 tablet Orally Once a dayamLODIPine Besylate 10 MG Tablet 1 tablet Orally Once a dayVitamin D-3 5000 UNIT Tablet 1 tablet Orally Once a dayTaking glipiZIDE 5 MG Tablet 1 tablet Orally Once a dayTaking Atorvastatin Calcium 20 MG Tablet 1 tablet Orally Once a dayTaking Lisinopril 10 MG Tablet 1 tablet Orally Once a dayTaking amLODIPine Besylate 10 MG Tablet 1 tablet Orally Once a dayTaking Vitamin D-3 5000 UNIT Tablet 1 tablet Orally Once a dayDiscontinuedmetFORMIN HCl 1000 MG Tablet 1 tablet with a meal Orally twice a dayMedication List reviewed and reconciled with the patientDiscontinued metFORMIN HCl 1000 MG Tablet 1 tablet with a meal Orally twice a dayMedication List reviewed and reconciled with the patient * Allergies:?N.K.D.A.yes[Aller gies Verified] Objective: * Vitals:?Wt: 187 lbs, Ht: 69 in, BMI:27.61 Index, BP: 000/00 mm Hg, Temp: 98.0. * Examination: ???General Examination: ?GENERAL APPEARANCE:?pleasant, well nourished, well developed, in no acute distress.?EYES:?sclera non-icteric.?ORAL CAVITY:?mucosa moist.?NECK/THYROID:?no cervical lymphadenopathy, neck supple.?SKIN:?nonjaundiced, no spider angiomata.?HEART:?S1, S2 normal.?LUNGS:?clear to auscultation bilaterally.?ABDOMEN:?normal bowel sounds, no guarding or rigidity, no guarding or rigidity, no masses palpable, soft, nontender, nondistended.?EXTREMITIES:?no edema.?NEUROLOGIC:?alert and oriented.? Assessment: * Assessment: 1.?Colon cancer screening - Z12.11 (Primary)?2.?Encounter for screening for malignant neoplasm of colon - Z12.11?3.?Preprocedural examination - Z01.818?4.?Family history of colon polyps, unspecified - Z83.719? Overall, Ashia appears well and is not having any new or worrisome GI complaints. Given his age, his good clinical appearance, his family history of colon polyps, and his own history of a tubular adenoma removed over 5 years ago, I did recommend a followup colonoscopy for further screening purposes. We did review the rationale for that regard to colon cancer prevention. Full consent was obtained for this, including risks of bleeding and perforation. The procedure will be done monitored anesthesia care. He was given the below instructions regarding adjustment of his diabetes medication for the procedure. Ashia was comfortable with this plan. Thank you again for allowing me to participate in Ashia's care. I shall continue to keep you advised of his progress. Plan: * Treatment: 2.?Encounter for screening for malignant neoplasm of colon?Procedure: COLONOSCOPY (Ordered for 03/02/2024)* with Morelia Madrid 02/08 04:33:25 PM EDT > Pt's colon procedure is scheduled for Thursday06/29/24 at 8:30am. Thanks Notes: Do not take the Glipizide the evening before or on the morning of the colonoscopy Needs cardiology clearance fromNorma Bond NP at [facility]?? * Procedure Codes:? * Preventive Medicine:? ??Counseling:?Care goal follow-up plan:?Above Normal BMI Follow-up?Giving encouragement to exercise,?BMI management provided?Yes.? * Follow Up:?prn * * Sign off status: Completed true * Provider:?Bertrand Musa MD Date:? 024 Generated for Evangelinai john/Emerson/eTransmitting on:?10/13/2024 03:56 PM EST History and Physical Notes * HPI (History of Present Illness) Category Sub-Category Detail Notes Category Not es incontinence I saw Ashia in the office today for evaluation of his personal history of a tubular adenoma of the colon, family history of colon polyps, and need for colorectal cancer screening. I last saw Ashia in December of 2018, at which time he underwent an initial screening colonoscopy with removal of a small tubular adenoma. He presently feels well. He enjoys a good appetite, without any significant heartburn or dysphagia. His bowel movements have been regular and without any signs of bleeding. He denies any jaundice, abdominal pain, nor unintentional weight loss. His family history is notable for a brother having had tubular adenomas removed. There is no known family history of colorectal cancer. Laboratories earlier this year revealed a normal CBC and normal LFTs. Examination Category Sub-Category Detail Notes Category Not es General Examination GENERAL APPEARANCE: pleasant , well [...]
--- OUTSIDE RECORDS SUMMARY | 2024-10-13 15:57 | XMS_ITS | Patient Health Record ---
Author Organization [facility] Address [address] [place] [address] Care Team Providers Care Casting Repairer Name Role Phone Justin Estrada MD Primary Care Provider Bertrand Carranza [phone] Allergies No Known Allergies Results Component Value Reference Range Notes Glucose, Whole Blood Reviewed date:06/29/2024 02:22:00 PM Interpretation: Performing Lab:[facility], [address] [place] [phone] Notes/Report: Glucose, Whole Blood 166 60-115 mg/dL METER # : [id number] Pathology (Not yet reviewed by provider) Interpretation: Performing Lab:[facility], [address] [place] [phone] Notes/Report: ---- Name: Ashia Bryson Age/Sex: 54/M : 1970 Unit#: [id number] Attend Dr: Bertrand Musa MD Re06/29/24 Status : [facility] Location: [facility] Disch: ---- SPEC : [id number] RECD : 06/29/24 STATUS: ARMIN ANN NUM: [id number] CLAUDIA: 06/29/24 [facility] DR: Bertrand Musa MD ENTERED: 06/29/24-05 27 SP TYPE: Surgical OTHR DR: Justin Estrada MD ORDERED: HE Stain/3, Gross Micro L4 Diagnosis Colon, at 20 cm, ruby yp: Tubular adenoma; negative for high-grade dysplasia and carcinoma. Clinical History Pre-Op Dx: Encounter for screening for malignant neoplasm of colon Post-Op Dx: Polyps, diverticulosis, hemorrhoids Microscopic Description Microscopic sections reviewed. Material Received Polyp at 20 Gross Description Received in formalin labeled ?polyp at 20? is a 0.45 cm gray-pink papular tissue fragment, submitted in toto in a cassette labeled A. CEDS Copies To: Justin Estrada MD [facility] [address] [place] [address] Bertrand Musa MD [facility] [address] [place] [address] ---- Signed (signature on file) Kassie Gan 06/30/24 1504 ---- END OF REPORT Reason For Referral No Information Medications Medication SIG (Take, Route, Frequency, Duration) [...] ce a day for 30 day(s) Active Immunizations Vaccine Route Administration Date Status Comme nts Influenza Unknown 07/21/2018 Administered Influenza Unknown 06/02/2023 Administered Social History Tobacco Use: Social History Observation Description Date Details (start date - stop date) Never Smoker NA - NA Tobacco Use/Smoking Question Answer Notes Patient is a nonsmoker Alcohol Screen Question Answer Notes Did you have a drink containing alcohol in the p ast year? No Points 0 Interpretation Negative Section Notes: Nonsmoker; no sig alcohol Nonsmoker; no sig alcohol Problems Problem Type SNOMED Code ICD Code Onset Dates Problem Status W/U Status Risk Notes Problem Colon cancer screening (991588489) Colon cancer screening (Z12.11) Active confirmed Problem 968073745 Encounter for screening for malignant neoplasm of colon (Z12.11) Active confirmed Problem Diverticular disease of colon (943267326) Diverticulosis of large intestine without perforation or abscess without bleeding (K57.30) Active confirmed Problem Preprocedural examination done (638484219159760) Preprocedural examination (Z01.818) Active confirmed Problem Family history of polyp of colon (983186991) Family history of colon polyps, unspecified (Z83.719) Active confirmed Vital Signs Temperature 98.0 degrees Fahrenheit 03/02/2024 Blood pressure diastolic 00 mm Hg 03/02/2024 Height 69 in 03/02/2024 Blood pressure systolic 000 mm Hg 03/02/2024 Weight 187 lbs 03/02/2024 BMI 27.61 kg/m2 03/02/2024 Encounters Encounter Location Date Provider Diagnosis [facility] [address] [place] [phone] 06/29/2024 Bertrand Musa Colon cancer screeni ng Z12.11 ; Colon polyps K63.5 ; Diverticulosis of large intestine without perforation or abscess without bleeding K57.30 and Other hemorrhoids K64.8 [facility] [address] [place] [address] 03/02/2024 Bertrand Musa Encounter for screen ing [...] keep you advised of his progress. 03/02/2024 Encounter for screening for malignant neoplasm of colon (ICD-10 - Z12.11) Do not take the Glipizide the evening before or on the morning of the colonoscopy Needs cardiology clearance fromNorma Bond NP at [facility] Overall, Ashia appears well and is not [...] to keep you advised of his progress. 06/29/2024 Diverticulosis of large intestine without perforation or abscess without bleeding (ICD-10 - K57.30) 03/02/2024 Preprocedural examination (ICD-10 - Z01.818) Overall, [...] to keep you advised of his progress. 06/29/2024 Other hemorrhoids (ICD-10 - K64.8) 03/02/2024 [...] advised of his progress. Plan Of Treatment Pending Test Test Name Order Date Pathology 06/29/2024 Future Test Test Name Order Date COLONOSCOPY 11/04/2018 COLONOSCOPY 03/02/2024 Insurance Providers Payer Name Payer Address Payer Phone Subscriber Number Group Number Insured Name Patient Relationship to Insured Coverage Start Date Coverage End Date MEDICARE OF [place] [address] [place] [address] [id number] ASHIA BRYSON Self - patient is the insured MEDICAID OF [facility] [address] [place] [phone] [id number] ASHIA BRYSON Self - patient is the insured Medical (General) History Medical History History ICD Code NIDDM Hypertension Denies ME,CVA,Lung disease,renal disease Hyperlipdemia CKD stage 3 Colonoscopy 12/2018 with a small tubular adenoma Wearing a heart monitor at the 03/02/2024 OV for SOB and irregular heartbeat Blind in right eye Surgical History Surgery Date(Month/Year) Retinal laser 2009 Cleft lip repair Tubes in ears
--- OUTSIDE RECORDS SUMMARY | 2024-10-13 15:57 | XMS_ITS | Data Portability ---
Author Organization [place] - [facility] Address [address] [address] Care Team Providers Care Cyber Policy And Strategy Planner Name Role Phone FAUSTO HOROWITZ Primary Care [...] e otitis externa of bilatera l ears [id number] Completed 201703/11/2024 Other infectiv e otitis externa, bilatera l; Note: Date Diagnose d: 05/28/20 18 2:18 PM (H60.393 ) Not Available [facility] 08/[facility] 4 02:18:42 Sensorin eural hearing loss of billauraa l ears 994473608 Active 2020 Sensorin eural hearing loss, bilatera l; Note: Date Diagnose d: 1 1:52 PM (H90.3) Not Available [facility] 4 02:18:53 Impacted cerumen of matthewa l ears 78240796096 31128 Active 2020 Impacted cerumen, bilatera l; Note: Date Diagnose d: 1 1:52 PM (H61.23) Not Available [facility] 4 02:18:37 Problem Notes None recorded. Procedures Surgical History Date Name Laterality Status Provider Name and Address Organization Details Recorded Time 4 Cerumen removal without microscope bilat completed KATHY DELACRUZ PA-C [address] [place] [address], [phone], [facility] 07/04/2024 14:34:27 Imaging Results None [...] eye drops 2017 active Medicatio n ID: [id number] Du ration Value: 14 Prescrib ed By Name: Jutso Keene Name: Ciloxan S end Method: E-Prescri bed Subs Allowed: subs OK Specia l Instructi on: Instill 4 drops twice a day into the affected ear. [facility] cationGen ericName: Ciloxan Not Available Not Available Not Available ciproflox acin 500 mg tablet 1 tablet by mouth 07/15 completed Medicatio n ID: [id number] Du ration Value: 14 Prescrib ed By Name: CRYS Santana Name: ciproflox acin HCl Send Method: E-Prescri bed Subs Allowed: subs OK Medica tionGener icName: ciproflox acin HCl Not Available Not Available Not Available amlodipin e 10 mg tablet active Not Available Not Available Not Available metformin 1,000 mg tablet 07/15 completed Medicatio n ID: [id number] Du ration Value: 30 Brand Name: metformin Send Method: E-Prescri bed Subs Allowed: subs OK Medica tionGener icName: metformin Not Available Not Available Not Available lisinopri l 40 mg tablet 09/24 completed Medicatio n ID: [id number] Du ration Value: 30 Brand Name: lisinopri l Send Method: E-Prescri bed Subs Allowed: subs OK Medica tionGener icName: lisinopri l Not Available Not Available Not Available glipizide 5 mg tablet active Not Available Not Available Not Available TobraDex 0.3 %-0.1 % eye drops,manuelito pension 2017 active Medicatio n ID: [id number] Du ration Value: 14 Prescrib ed By [...] Updated DateTime 07/04/2024 165.1 cm 30.8 kg/m2 67612.59 g Adalberto Robles [place] - [facility] 07/04/2024 13:37:43 Social History None recorded. Functional Status None recorded. Mental Status None recorded. Family History Nothing Reported. Medical History No medical history recorded. Past Encounters Encounter ID Performer Location Encounter Start Date Encounter Closed Date Diagnosis/Indication Diagnosis SNOMED-CT Code Diagnosis ICD10 Code Diagnosis Note [id number] TSERING MAHAJAN MD [facility] [address] [place] [address] 07/04/2024 13:21:57 07/04/2024 14:30:39 Impacted cerumen of bilateral ears [id number] 225581 H61.23 Sensorineu ral hearing loss of bilateral ears 520003785 H90.3 Health Concerns Section Related Observation LastModified by Organization Detai ls LastModified Time None Recorded Concern Status LastModified by Organization Details LastModified Time None Recorded Advance Directives Directive None Recorded Payers Encounter Date Sequence Insurance Name Policy Number Policy Correa Covered Member ID Correa Member ID Guarantor Name 07/04/2024 2 MEDICAID-[place]: [facility] Juan José Muñiz [id number] Juan José Muñiz 07/04/2024 1 [place] [employer] Juan José Muñiz [id number] Juan José Muñiz Notes Date Note Type Note Provider Name and Address Organization Details Recorded Time 07/04/2024 text/html 54 year old male with profound hearing loss and bilateral amplification presents for cerumen removal. Reports no change in hearing. Amplification dispensed from the [employer], and patient feels the aids are working well. Denies otalgia, otorrhea, or tinnitus. Occasional Qtip use in external ear. TSERING MAHAJAN MD [address] [place] [address], [phone] - [facility] 07/04/2024 15:40:09
== END 2024-10-13 14:13 | disposition home or self-care (01) ==
PROVIDERS: PCP Internal Medicine; Visit Provider Nurse Practitioner Family
DX: R06.02 Shortness of breath (principal); I10 Essential (primary) hypertension; E11.22 Type 2 diabetes mellitus with diabetic chronic kidney disease; I49.1 Atrial premature depolarization; I49.8 Other specified cardiac arrhythmias
CPT/HCPCS: 99214; G2211

== ENCOUNTER → 2024-10-13 13:09 | Outpatient (BNVA) | payer MEDICARE, MEDICAID, SELFPAY | PROVIDERS: PCP Internal Medicine; Visit Provider Nurse Practitioner Family | DX: I12.9 Hypertensive chronic kidney disease with stage 1 through stage 4 chronic kidney disease, or unspecified chronic kidney disease (principal); E11.22 Type 2 diabetes mellitus with diabetic chronic kidney disease; E78.5 Hyperlipidemia, unspecified; R00.2 Palpitations; R06.02 Shortness of breath; I49.1 Atrial premature depolarization; I49.8 Other specified cardiac arrhythmias; N18.9 Chronic kidney disease, unspecified | CPT/HCPCS: 99212 ==

== ENCOUNTER 2024-10-25 08:11 | Outpatient (REF) | payer MEDICARE, MEDICAID, SELFPAY ==
[2024-10-25 10:17] LABS: MANUAL DIFF FLAG NO
[2024-10-25 10:23] LABS: Basophils Absolute Auto 0.1 X10*3/uL (0.0-0.2); Basophils Percent Auto 1.2 % (0-2); Eosinophils Absolute Auto 0.3 X10*3/uL (0.0-0.4); Eosinophils Percent Auto 3.8 % (0-4); Hematocrit 39.5 % (42.0-52.0); Hemoglobin 13.8 g/dl (14.0-18.0); Imm Gran Abs Auto 0.04 X10*3/uL (0.00-0.03); Imm Gran Pct Auto 0.5 % (0.0-0.4); Lymphocytes Absolute Auto 1.1 X10*3/uL (1.2-4.9); Lymphocytes Percent Auto 14.6 % (20-40); Mean Corpuscular HGB Conc 34.9 g/dl (31.0-36.0); Mean Corpuscular Hemoglobin 29.9 pg (27.0-33.0); Mean Corpuscular Volume 85.7 fL (80.0-98.0); Mean Platelet Volume 10.3 fL (9.4-12.4); Monocytes Absolute Auto 0.6 X10*3/uL (0.1-1.2); Monocytes Percent Auto 7.8 % (2-11); Neutrophils Absolute Auto 5.3 x10*3/uL (2.0-8.3); Neutrophils Percent Auto 72.1 % (45-73); Platelet Count 212 X10*3/uL (160-400); Red Blood Count 4.61 X10*6/uL (4.60-5.80); White Blood Count 7.3 X10*3/uL (4.8-10.8)
[2024-10-25 10:28] LABS: Prothrombin Time 11.5 SEC (10.9-12.4)
[2024-10-25 10:34] LABS: Anion Gap 11 (12-20); Blood Urea Nitrogen 29 mg/dL (9-16); Calcium 9.1 mg/dL (8.4-10.2); Carbon Dioxide 27 mmol/L (22-29); Chloride 106 mmol/L (96-108); Estimated Glomerular Filt Rate 49; Glucose Random 215 mg/dL (60-115); Potassium 4.6 mmol/L (3.3-5.1); Sodium 139 mmol/L (135-145)
== END 2024-10-25 08:12 | disposition home or self-care (01) ==
LOC: HO.10HDL 08:11
PROVIDERS: Visit Provider Nurse Practitioner Family
DX: I25.10 Atherosclerotic heart disease of native coronary artery without angina pectoris (principal)
CPT/HCPCS: 36415; 80048; 85025; 85610

== ENCOUNTER → 2024-11-03 23:59 | Outpatient (BNV) | payer MEDICARE, MEDICAID, SELFPAY | PROVIDERS: PCP Internal Medicine; Visit Provider Internal Medicine Cardiovascular Disease | DX: I20.89 Other forms of angina pectoris (principal) | CPT/HCPCS: 93458; 99152 ==

== ENCOUNTER 2024-11-15 09:02 | Outpatient (AMB) | payer MEDICARE, MEDICAID, SELFPAY ==
[2024-11-15 09:24] VITALS: BP 120/62; PULSE 67; BMI 28.9
--- NOTE | 2024-11-15 09:24 | MHC.OFFVIS ---
Vital Signs 11/15/24 09:24 Height 5 ft 9 in Weight 195 lb 12.328 oz BMI 28.9 BP 120/62 Blood Pressure Location Lt brachial Position Sitting Pulse 67 Pulse Source Pulse Oximeter Intake Visit Reasons: Follow up post cardiac cath Heating Unit Mechanic Required: No Allergies No Known Allergies [No Known Allergies*] Allergy (Verified 11/15/24 09:26) Medication List - Last Reconciled 11/15/24 by Norma Bond, VIDEO CONTROL ENGINEER-C amlodipine 10 mg PO DAILY aspirin 81 mg PO DAILY atorvastatin 40 mg PO BEDTIME cholecalciferol (vitamin D3) 125 mcg PO DAILY glipizide 5 mg PO DAILY lisinopril 10 mg PO DAILY sodium zirconium cyclosilicate (Lokelma) 5 grams PO Q OTHER DAY HPI HPI Follow up post cardiac cath: Details: Juan José is a 54-year-old male with past medical history of diabetes, hypertension, hyperlipidemia, chronic kidney disease who has undergone cardiac evaluation for shortness of breath. He recently had a cardiac cath showing mild nonobstructive CAD and he now presents for follow up. Today he reports that he continues to notice shortness of breath when he is at work. This symptom is unchanged since his last visit in May. 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 He has no PND, orthopnea or edema. No chest discomfort at rest or activity. He has brief heart palpitations, no recent lightheadedness, no presyncope, syncope, falls. His right radial catheterization site is feeling good. He reports med compliance. [facility] Medical History Vision loss of right eye Hyperlipidemia Accelerated junctional rhythm PAC (premature atrial contraction) Palpitations Diabetes Chronic renal insufficiency HTN (hypertension) Surgical History H/O colonoscopy History of placement of ear tubes History of repair of cleft lip Social History Household Members: Spouse Are you a primary daytime caregiver to a significant other at home: No Alcohol intake: never Patient Tobacco Use Status: Never used Tobacco e-Cigarette/Vaping Use: Never Used Review of Systems Const All systems reviewed & are unremarkable except as noted in HPI and below ENT Denies dizziness Card Denies chest pain, Denies chest pain at rest, Denies chest pain with activity, Denies rapid heart rate, Denies pedal edema, Denies edema, Denies leg edema, Denies lightheadedness, Denies palpitations, Denies dyspnea, Denies dyspnea on exertion and Denies orthopnea Resp Denies cough, Denies dyspnea and Denies dyspnea on exertion GI Denies hematochezia and Denies change in stool character Musc Denies abnormal gait, Denies limited range of motion, Denies muscle cramps, Denies muscle weakness, Denies numbness, Denies radiating pain into limb, Denies stiffness and Denies tingling Neuro Denies abnormal gait, Denies dizziness, Denies numbness and Denies tingling Endo Denies palpitations Physical Exam Const General: cooperative, healthy appearing, comfortable and no acute distress Orientation/consciousness: patient oriented x3 Neck Neck: Yes normal visual inspection Resp Effort & Inspection: normal respiratory effort Auscultation: clear to auscultation bilaterally, no rales, no rhonchi and no wheezes Cardio Jugular venous distension: no JVD Rate: regular rate Rhythm: regular rhythm Heart sounds: S1 normal heart sound present, S2 normal heart sound present, no murmurs and no rubs Neuro General: patient oriented x3 Extrem Other: right radial cath site with small soft palpable nodule, easily palpable radial pulse, right hand assessment normal General: Yes normal to inspection Psych Appearance: grossly normal Mental Status: mental status grossly normal Speech and movement: Normal speech and movement present Assessment & Plan Assessment & Plan (1) SOB (shortness of breath) on exertion: Code(s): R06.02 - Shortness of breath Category: Medical Plan: Shortness of breath with exertional activities. He does have multiple cardiac risk factors including hypertension, hyperlipidemia, diabetes, chronic kidney disease. Echocardiogram on 01/25/2024 showing EF 65-70%, mild septal and basal asymmetric hypertrophy, mild calcification of the aortic valve. A nuclear stress test was done 01/25/2024 showing exercise 3 minutes 40 seconds with shortness of breath and 5/10 chest tightness with intermittent junctional rhythm at rest, accelerated junctional during exercise, no ischemic EKG changes and normal myocardial perfusion imaging. He then had CTA of the coronaries arteries on 07/27/2024 which shows minimal to mild stenosis of the left main, lad, left circumflex and RCA, however degree of stenosis was difficult to determine. He then underwent cardiac catheter cessation on 11/03/2024 showing only minimal nonobstructive coronary artery disease. Test results reviewed with him in detail. Informed him his shortness of breath symptom is noncardiac. For his mild CAD will have him continue aspirin indefinitely. Continue atorvastatin with ideal LDL goal less than 70. Continue lisinopril and amlodipine for good blood pressure control. Signs and symptoms of angina reviewed with him. Cardiology follow-up 1 year, sooner if needed. (2) S/P cardiac cath: Comment: 11/03/2024, left main normal lad minimal irregularities, left circumflex mild luminal irregularities less than 30% stenosis, RCA mild luminal irregularities less than 30% stenosis. Code(s): Z98.890 - Other specified postprocedural states Category: Surgical Plan: Right radial catheterization site healing well. (3) HTN (hypertension): Code(s): I10 - Essential (primary) hypertension Category: Medical Plan: Blood pressure goal less than 130/80. Reading is normal today. Follows with Nephrology as well. Continue current med management. (4) Diabetes mellitus with chronic kidney disease: Code(s): E11.22 - Type 2 diabetes mellitus with diabetic chronic kidney disease Category: Medical Plan: Hemoglobin A1c goal less than 7. Followed by his PCP. (5) PAC (premature atrial contraction): Code(s): I49.1 - Atrial premature depolarization Category: Medical Plan: Frequent PACs noted on Holter monitor, 16.2% of time, 9 SVT runs, longest 12 beats. Reviewed caffeine reduction. Less palpitations since he has been drinking less coffee. Beta-ahmet was avoided as he did have finding of accelerated junctional rhythm when doing cardiac stress test. (6) Accelerated junctional rhythm: Code(s): I49.8 - Other specified cardiac arrhythmias Category: Medical Plan: As above, noted during stress test. (7) Coronary artery disease: Code(s): I25.10 - Atherosclerotic heart disease of [place] coronary artery without angina pectoris Category: Medical Plan: Mild nonobstructive disease Plan Time spent on chart review, documentation, interview and assessment Orders: Orders Lipid Panel 1 Month I25.10 - Atherosclerotic heart disease of [place] coronary artery without angina pectoris PFT pulmonary function test Today R06.02 - Shortness of breath Coding Level of Care Code Est Pt Level 4 (89626) Complex EM visit Add On G2211 Diagnoses SOB (shortness of breath) on exertion R06.02 S/P cardiac cath Z98.890 HTN (hypertension) I10 Diabetes mellitus with chronic kidney disease E11.22 PAC (premature atrial contraction) I49.1 Accelerated junctional rhythm I49.8 Coronary artery disease I25.10 Time Spent (min) 28
--- OUTSIDE RECORDS SUMMARY | 2024-11-15 09:52 | XMS_ITS | Patient Health Record ---
Author Organization [facility] Address [address] [place] [address] Care Team Providers Care Business Analytics Intern Name Role Phone Justin Estrada MD Primary Care Provider Bertrand Carranza [phone] Allergies No Known Allergies Results Component Value Reference Range Notes Glucose, Whole Blood Reviewed date:06/29/2024 02:22:00 PM Interpretation: Performing Lab:[facility], [address] [place] [id number] Notes/Report: Glucose, Whole Blood 166 60-115 mg/dL METER # : [id number] Pathology (Not yet reviewed by provider) Interpretation: Performing Lab:[facility], [address] [place] [phone] Notes/Report: ---- Name: Ashia Bryson Age/Sex: 54/M : 1970 Unit#: [id number] Attend Dr: Bertrand Musa MD Re06/29/24 Status : [facility] Location: [facility] Disch: ---- SPEC : [id number] RECD : 06/29/24 STATUS: ARMIN ANN NUM: [id number] CLAUDIA: 06/29/[address] [facility] [address]: Bertrand Musa MD ENTERED: 06/29/24-05 27 [...] Physicians [address] [place] [address] Bertrand Musa MD [facility] [address] [place] [address] ---- Signed (signature on file) Kassie Gan [...] Status Risk Notes Problem Colon cancer screening (008221183) Colon cancer screening (Z12.11) Active confirmed Problem [id number] Encounter for screening for malignant neoplasm of colon (Z12.11) Active confirmed Problem Diverticular disease of colon (668072401) Diverticulosis of large intestine without perforation or abscess without bleeding (K57.30) Active confirmed Problem Preprocedural examination done (868501986497791) Preprocedural examination (Z01.818) Active confirmed Problem Family history of polyp of colon (980039981) Family history of colon polyps, unspecified (Z83.719) Active confirmed Vital Signs Temperature 98.0 degrees Fahrenheit 03/02/2024 Blood pressure diastolic 00 mm Hg 03/02/2024 Height 69 in 03/02/2024 Blood pressure systolic 000 mm Hg 03/02/2024 Weight 187 lbs 03/02/2024 BMI 27.61 kg/m2 03/02/2024 Encounters Encounter Location Date Provider Diagnosis [facility] Outpatient [address] [place] [id number] 06/29/2024 Bertrand Musa Colon cancer screeni ng Z12.11 ; Colon polyps K63.5 ; Diverticulosis of large intestine without perforation or abscess without bleeding K57.30 and Other hemorrhoids K64.8 [facility] [address] [place] [address] 03/02/2024 Bertrand Musa Encounter for screen ing [...] Needs cardiology clearance fromNorma Bond NP at [facility] Overall, Ashia appears well and is not [...] End Date MEDICARE OF [place] [address] [place] [address] [id number] ASHIA BRYSON Self - patient is the insured MEDICAID OF [facility] [employer] [facility] [address] [place] [phone] [id number] ASHIA BRYSON Self - patient is the insured Medical (General) History Medical History History ICD Code NIDDM Hypertension Denies MS,CVA,Lung disease,renal disease Hyperlipdemia CKD stage 3 Colonoscopy 12/2018 with a small tubular adenoma Wearing a heart monitor at the 03/02/2024 OV for SOB and irregular heartbeat Blind in right eye Surgical History Surgery Date(Month/Year) Retinal laser 2009 Cleft lip repair Tubes in ears
--- OUTSIDE RECORDS SUMMARY | 2024-11-15 09:52 | XMS_ITS ---
Author Organization [facility] Address [address] [place] [address] Care Team Providers Care Welder Fitter Name Role Phone Justin Estrada MD Primary Care Provider Celestinaa Bertrand Joyner Unavailable [phone] REASON FOR VISIT colon cancer screening Problems Problem Type SNOMED Code ICD Code Onset Dates Problem Status W/U Status Risk Notes Problem Diverticular disease of colon (913812681) Diverticulosis of large intestine without perforation or abscess without bleeding (K57.30) Active confirmed Encounters Encounter Location Date Provider Diagnosis [facility] [address] [place] [phone] 06/29/2024 Bertrand Musa Colon cancer scree unique [...] * ASHIA BRYSONDOB:1970 ([age] yo M)Acc No.[id number]:06/29/2024 COLON WITH MAC Patient:?ASHIA BRYSON Provider:?Bertrand Musa MD :1970???Age:54 Y???Sex:Male John e:06/29/2024 Address: [place], [id number] Pcp:Justin Estrada MD Subjective: * Chief Complaints: * ???1. Colon cancer screening . * Medical History:? Objective: * Vitals:? Assessment: * Assessment: 1.?Colon cancer screening - Z12.11 (Primary)???2.?Colon polyps - K63.5???3.?Diverticulosis of large intestine without perforation or abscess without bleeding - K57.30???4.?Other hemorrhoids - K64.8??? Plan: * Treatment: * Procedure Codes:?77332 LESIO N REMOVAL COLONOSCOPY, Modifiers: PT , [...] MD Date:? 024 Generated for Kristen lopez/Emerson/eTransmitting on:?11/15/2024 09:52 AM EDT
--- OUTSIDE RECORDS SUMMARY | 2024-11-15 09:52 | XMS_ITS ---
Author Organization [facility] Address [address] [place] [address] Care Team Providers Care State Epidemiologist Name Role Phone Justin Estrada MD Primary Care Provider Bertrand Carranza Unavailable [phone] Allergies No Known Allergies REASON FOR VISIT [...] Status Risk Notes Problem Colon cancer screening (998076231) Colon cancer screening (Z12.11) Active confirmed Problem Family history of polyp of colon (441167217) Family history of colon polyps, unspecified (Z83.719) Active confirmed Vital Signs Temperature 98.0 degrees Fahrenheit 03/02/20 24 Blood pressure systolic 000 mm Hg 03/02/20 Blood pressure diastolic 00 mm Hg 024 Height 69 in 03/02/2024 Weight 187 lbs 03/02/2024 BMI 27.61 kg/m2 03/02/2024 Encounters Encounter Location Date Provider Diagnosis [facility] [address] [place] [address] 03/02/2024 Bertrand Musa Encounter for screen ing [...] Needs cardiology clearance fromNorma Bond NP at [facility] Overall, Ashia appears well [...] Needs cardiology clearance fromNorma Bond NP at [facility] Future Test Test Name Order Date COLONOSCOPY 03/02/2024 Next Appt Details Follow Up: prn, Reason: Progress Notes * ASHIA BRYSONDOB:1970 ([age] yo M)Acc No.[id number]:03/02/2024 Progress Notes Patient:?ASHIA BRYSON Provider:?Bertrand Musa MD :1970???Age:54 Y???Sex:Male John e:03/02/2024 Address:[address] [place], [place] [phone] Pcp:Justin Estrada MD Subjective: * Chief Complaints: [...] status: . 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 ???Nonsmoker; no sig alcohol. [...] Needs cardiology clearance fromNorma Bond NP at [facility]?? * Procedure Codes:? * Preventive Medicine:? ??Counseling:?Care goal follow-up plan:?Above Normal BMI Follow-up?Giving encouragement to exercise,?BMI management provided?Yes.? * Follow Up:?prn * * Sign off status: Completed true * Provider:?Bertrand Musa MD Date:? 024 Generated for Printi john/Emerson/eTransmitting on:?11/15/2024 09:52 AM EDT History and Physical Notes * HPI (History [...]
--- OUTSIDE RECORDS SUMMARY | 2024-11-15 09:53 | XMS_ITS | Clinical Summary ---
Author Organization [facility] Address [address] [place] [address] Phone Care Team Providers Care Stamp Classifier Name Role Phone Justin Estrada MD Primary Care Provider [phone] Allergies No known active allergies Medications amLODIPine [...] Colorectal Cancer Screening: Sigmoidoscopy 01/12/2017 Influenza Vaccine (Season Ended) 2025 Insurance [facility] Care Teams Stamp Classifier Relationship Specialty Start Date End Date Justin Estrada MD [address] [place] [address] [id number] [facility] PCP - General 08/20/20
--- OUTSIDE RECORDS SUMMARY | 2024-11-15 09:53 | XMS_ITS | Data Portability ---
Author Organization [place] [facility] Address [address] [address] Care Team Providers Care Fan Mail Editor Name Role Phone FAUSTO HOROWITZ Primary Care Provider [phone] Assessment Encounter Date Assessment Date Assessment LastModified [...] e otitis externa of bilatera l ears [id number] 78740 Completed 201703/11/2024 Other infectiv e otitis externa, bilatera l; Note: Date Diagnose d: 05/28/20 18 2:18 PM (H60.393 ) Not Available [facility] 08/02/202 4 02:18:42 Sensorin eural hearing loss of billauraa l ears 135484007 Active 2020 Sensorin eural hearing loss, bilatera l; Note: Date Diagnose d: 1 1:52 PM (H90.3) Not Available [facility] 4 02:18:53 Impacted cerumen of matthewa l ears 59217169556 10072 Active 2020 Impacted cerumen, bilatera l; Note: Date Diagnose d: 1 1:52 PM (H61.23) Not Available [facility] 4 02:18:37 Problem Notes None recorded. Procedures Surgical History Date Name Laterality Status Provider Name and Address Organization Details Recorded Time 4 Cerumen removal without microscope bilat completed KATHY DELACRUZ PA-C [address] [place] [address], [phone], [facility] 07/04/2024 14:34:27 Imaging Results None recorded. [...] eye drops 2017 active Medicatio n ID: [id number] Du ration Value: 14 Prescrib ed By Name: Justo Keene Name: Ciloxan S end Method: E-Prescri bed Subs Allowed: subs [place] Specia l Instructi on: Instill 4 drops twice a day into the affected ear. [facility] cationGen ericName: Ciloxan Not Available Not Available Not Available ciproflox acin 500 mg tablet 1 tablet by mouth 07/15 completed Medicatio n ID: [id number] Du ration Value: 14 Prescrib ed By Name: CRYS Santana Name: ciproflox acin HCl Send Method: E-Prescri bed Subs Allowed: subs [place] Medica tionGener icName: ciproflox acin HCl Not Available Not Available Not Available amlodipin e 10 mg tablet active Not Available Not Available Not Available metformin 1,000 mg tablet 07/15 completed Medicatio n ID: [id number] Du ration Value: 30 Brand Name: metformin Send Method: E-Prescri bed Subs Allowed: subs [place] Medica tionGener icName: metformin Not Available Not Available Not Available lisinopri l 40 mg tablet 09/24 completed Medicatio n ID: [id number] Du ration Value: 30 Brand Name: lisinopri l Send Method: E-Prescri bed Subs Allowed: subs [place] Medica tionGener icName: lisinopri l Not Available Not Available Not Available glipizide 5 mg tablet active Not Available Not Available Not Available TobraDex 0.3 %-0.1 % eye drops,manuelito pension 2017 active Medicatio n ID: [id number] Du ration Value: 14 Prescrib ed By [...] Updated DateTime 07/04/2024 165.1 cm 30.8 kg/m2 64538.59 g Adalberto Robles [place] - [facility] 07/04/2024 13:37:43 Social History None recorded. Functional Status None recorded. Mental Status None recorded. Family History Nothing Reported. Medical History No medical history recorded. Past Encounters Encounter ID Performer Location Encounter Start Date Encounter Closed Date Diagnosis/Indication Diagnosis SNOMED-CT Code Diagnosis ICD10 Code Diagnosis Note [id number] TSERING MAHAJAN MD [facility] [address] [place] [address] 07/04/2024 13:21:57 07/04/2024 14:30:39 Impacted cerumen of bilateral ears [id number] 964566 H61.23 Sensorineu ral hearing loss of bilateral ears 519868232 H90.3 Health Concerns Section Related Observation LastModified by Organization Detai ls LastModified Time None Recorded Concern Status LastModified by Organization Details LastModified Time None Recorded Advance Directives Directive None Recorded Payers Encounter Date Sequence Insurance Name Policy Number Policy Correa Covered Member ID Correa Member ID Guarantor Name 07/04/2024 2 [place] [facility] Juan José Muñiz [id number] Juan José Muñiz 07/04/2024 1 [place]IC[place] [employer] Juan José Muñiz [id number] Juan José Muñiz Notes Date Note Type Note Provider Name and Address Organization Details Recorded Time 07/04/2024 text/html 54 year old male with profound hearing loss and bilateral amplification presents for cerumen removal. Reports no change in hearing. Amplification dispensed from the [employer], and patient feels the aids are working well. Denies otalgia, otorrhea, or tinnitus. Occasional Qtip use in external ear. TSERING MAHAJAN MD [address] [place] [address], [phone] - [facility] 07/04/2024 15:40:09
== END 2024-11-15 09:46 | disposition home or self-care (01) ==
LOC: HO.HCS 09:02
PROVIDERS: PCP Internal Medicine; Visit Provider Nurse Practitioner Family
DX: R06.02 Shortness of breath (principal); Z98.890 Other specified postprocedural states; I10 Essential (primary) hypertension; E11.22 Type 2 diabetes mellitus with diabetic chronic kidney disease; I49.1 Atrial premature depolarization; I49.8 Other specified cardiac arrhythmias; I25.10 Atherosclerotic heart disease of native coronary artery without angina pectoris
CPT/HCPCS: 99214; G2211

== ENCOUNTER → 2024-11-15 09:02 | Outpatient (BNVA) | payer MEDICARE, MEDICAID, SELFPAY | PROVIDERS: PCP Internal Medicine; Visit Provider Nurse Practitioner Family | DX: R06.02 Shortness of breath (principal); I25.10 Atherosclerotic heart disease of native coronary artery without angina pectoris; I49.8 Other specified cardiac arrhythmias; I49.1 Atrial premature depolarization; E11.22 Type 2 diabetes mellitus with diabetic chronic kidney disease; I12.9 Hypertensive chronic kidney disease with stage 1 through stage 4 chronic kidney disease, or unspecified chronic kidney disease; N18.9 Chronic kidney disease, unspecified; Z98.890 Other specified postprocedural states | CPT/HCPCS: 99212 ==

== ENCOUNTER 2024-12-13 09:40 | Outpatient (REF) | payer MEDICARE, MEDICAID, SELFPAY ==
--- OUTSIDE RECORDS SUMMARY | 2024-12-13 10:43 | XMS_ITS | Data Portability ---
Author Organization [place] - [facility], Allergy Address [address] [address] Care Team Providers Care Traffic Control Operator Name Role Phone FAUSTO HOROWITZ Primary Care [...] e otitis externa of bilatera l ears [id number] Completed 201703/11/2024 Other infectiv e otitis externa, bilatera l; Note: Date Diagnose d: 05/28/20 18 2:18 PM (H60.393 ) Not Available [facility] 08/02/202 4 02:18:42 Sensorin eural hearing loss of billauraa l ears 287901579 Active 2020 Sensorin eural hearing loss, bilatera l; Note: Date Diagnose d: 1 1:52 PM (H90.3) Not Available [facility] 4 02:18:53 Impacted cerumen of matthewa l ears 91233051169 90402 Active 2020 Impacted cerumen, bilatera l; Note: Date Diagnose d: 1 1:52 PM (H61.23) Not Available [facility] 4 02:18:37 Problem Notes None recorded. Procedures Surgical History Date Name Laterality Status Provider Name and Address Organization Details Recorded Time 4 Cerumen removal without microscope bilat completed KATHY DELACRUZ PA-C [address] [place] [address], [id number], [facility] 07/04/2024 14:34:27 Imaging Results None recorded. [...] eye drops 2017 active Medicatio n ID: [id number] Du ration Value: 14 Prescrib ed By Name: Justo Keene Name: Ciloxan S end Method: E-Prescri bed Subs Allowed: subs OK Specia l Instructi on: Instill 4 drops twice a day into the affected ear. [facility] cationGen ericName: Ciloxan Not Available Not Available Not Available ciproflox acin 500 mg tablet 1 tablet by mouth 07/15 completed Medicatio n ID: [id number] Du ration Value: 14 Prescrib ed By Name: CRYS Santana Name: ciproflox acin HCl Send Method: E-Prescri bed Subs Allowed: subs OK Medica tionGener icName: ciproflox acin HCl Not Available Not Available Not Available amlodipin e 10 mg tablet active Not Available Not Available Not Available metformin 1,000 mg tablet 07/15 completed Medicatio n ID: [id number] Du ration Value: 30 Brand Name: metformin Send Method: E-Prescri bed Subs Allowed: subs OK Medica tionGener icName: metformin Not Available Not Available Not Available lisinopri l 40 mg tablet 09/24 completed Medicatio n ID: [id number] Du ration Value: 30 Brand Name: lisinopri l Send Method: E-Prescri bed Subs Allowed: subs OK Medica tionGener icName: lisinopri l Not Available Not Available Not Available glipizide 5 mg tablet active Not Available Not Available Not Available TobraDex 0.3 %-0.1 % eye drops,manuelito pension 2017 active Medicatio n ID: [id number] Du ration Value: 14 Prescrib ed By [...] Updated DateTime 07/04/2024 165.1 cm 30.8 kg/m2 45155.59 g Adalberto Robles [place] - [facility] 07/04/2024 13:37:43 Social History None recorded. Functional Status None recorded. Mental Status None recorded. Family History Nothing Reported. Medical History No medical history recorded. Past Encounters Encounter ID Performer Location Encounter Start Date Encounter Closed Date Diagnosis/Indication Diagnosis SNOMED-CT Code Diagnosis ICD10 Code Diagnosis Note [id number] KATHY DELACRUZ PA-C [facility] [address] [address] 07/04/2024 13:21:57 07/04/2024 14:30:39 Impacted cerumen of bilateral ears [id number] 205355 H61.23 Sensorineu ral hearing loss of bilateral ears 207677717 H90.3 Health Concerns Section Related Observation LastModified by Organization Detai ls LastModified Time None Recorded Concern Status LastModified by Organization Details LastModified Time None Recorded Advance Directives Directive None Recorded Payers Encounter Date Sequence Insurance Name Policy Number Policy Correa Covered Member ID Correa Member ID Guarantor Name 07/04/2024 2 [place] [facility] Juan José Muñiz [id number] Juan José Muñiz 07/04/2024 1 [place] [employer] Juan José Muñiz [id number] Juan José Muñiz Notes Date Note Type Note Provider Name and Address Organization Details Recorded Time 07/04/2024 text/html 54 year old male with profound hearing loss and bilateral amplification presents for cerumen removal. Reports no change in hearing. Amplification dispensed from the [employer], and patient feels the aids are working well. Denies otalgia, otorrhea, or tinnitus. Occasional Qtip use in external ear. TSERING MAHAJAN MD [address] [place] [address], [id number] - [facility] 07/04/2024 15:40:09
--- OUTSIDE RECORDS SUMMARY | 2024-12-13 10:43 | XMS_ITS ---
Author Organization [facility] Address [address] [place] [address] Care Team Providers Care Acute Care Physical Therapist Name Role Phone Justin Estrada MD Primary Care Provider Celestinaa Bertrand Joyner Unavailable [phone] REASON FOR VISIT colon cancer screening Problems Problem Type SNOMED Code ICD Code Onset Dates Problem Status W/U Status Risk Notes Problem Diverticulosis o f large intestine without perforation or abscess without bleeding (K57.30) Active confirmed Encounters Encounter Location Date Provider Diagnosis [facility] Outpatient [address] [place] [id number] 06/29/2024 Bertrand Musa Colon cancer scree unique [...] * ASHIA BRYSONDOB:1970 ([age] yo M)Acc No.[id number]:06/29/2024 COLON WITH MAC Patient:?ASHIA BRYSON Provider:?Bertrand Musa MD :1970???Age:54 Y???Sex:Male John e:06/29/2024 Address: [place], [id number] Pcp:Justin Estrada MD Subjective: * Chief Complaints: * ???1. Colon cancer screening . * Medical History:? Objective: * Vitals:? Assessment: * Assessment: 1.?Colon cancer screening - Z12.11 (Primary)???2.?Colon polyps - K63.5???3.?Diverticulosis of large intestine without perforation or abscess without bleeding - K57.30???4.?Other hemorrhoids - K64.8??? Plan: * Treatment: * Procedure Codes:?88775 LESIO N REMOVAL COLONOSCOPY, Modifiers: PT , [...] MD Date:? 024 Generated for Kristen lopez/Emerson/eTransmitting on:?12/13/2024 10:42 AM EDT
--- OUTSIDE RECORDS SUMMARY | 2024-12-13 10:43 | XMS_ITS | Patient Health Record ---
Author Organization [facility] Address [address] [place] [address] Care Team Providers Care Cutting Machine Operator Helper Name Role Phone Justin Estrada MD Primary Care Provider Bertrand Carranza [phone] Allergies No Known Allergies Results Component Value Reference Range Notes Glucose, Whole Blood Reviewed date:06/29/2024 02:22:00 PM Interpretation: Performing Lab:[facility], [address] [place] [phone] Notes/Report: Glucose, Whole Blood 166 60-115 mg/dL METER # : [id number] Pathology (Not yet reviewed by provider) Interpretation: Performing Lab:[facility], [address] [place] [id number] Notes/Report: ---- Name: Ashia Bryson Age/Sex: 54/M : 1970 Unit#: [id number] Attend Dr: Bertrand Musa MD Re06/29/24 Status : [facility] Location: [facility] Disch: ---- SPEC : [id number] RECD : 06/29/24 STATUS: ARMIN ANN NUM: [id number] CLAUDIA: 06/29/[address] [facility] [address]: Bertrand Musa MD ENTERED: 06/29/24-05 27 [...] Physicians [address] [place] [address] Bertrand Musa MD [facility] [address] [place] [address] ---- Signed (signature on file) Kassie Gan [...] Status Risk Notes Problem Colon cancer screening (012261328) Colon cancer screening (Z12.11) Active confirmed Problem 905924608 Encounter for screening for malignant neoplasm of colon (Z12.11) Active confirmed Problem Diverticulosis o f large intestine without perforation or abscess without bleeding (K57.30) Active confirmed Problem Preprocedural examination done (765865413916583) Preprocedural examination (Z01.818) Active confirmed Problem Family history of polyp of colon (620313926) Family history of colon polyps, unspecified (Z83.719) Active confirmed Vital Signs Temperature 98.0 degrees Fahrenheit 03/02/2024 Blood pressure diastolic 00 mm Hg 03/02/2024 Height 69 in 03/02/2024 Blood pressure systolic 000 mm Hg 03/02/2024 Weight 187 lbs 03/02/2024 BMI 27.61 kg/m2 03/02/2024 Encounters Encounter Location Date Provider Diagnosis [facility] Outpatient [address] [place] [id number] 06/29/2024 Bertrand Musa Colon cancer screeni ng Z12.11 ; Colon polyps K63.5 ; Diverticulosis of large intestine without perforation or abscess without bleeding K57.30 and Other hemorrhoids K64.8 [facility] [address] [place] [address] 03/02/2024 Bertrand Musa Encounter for screen ing [...] Needs cardiology clearance fromNorma Bond NP at [facility] Overall, Ashia appears well and is not [...] Date MEDICARE OF [place] [address] [place] [address] [id number] ASHIA BRYSON Self - patient is the insured MEDICAID OF [facility] [address] [place] [address] [id number] ASHIA BRYSON Self - patient is the insured Medical (General) History Medical History History ICD Code NIDDM Hypertension Denies VT,CVA,Lung disease,renal disease Hyperlipdemia CKD stage 3 Colonoscopy 12/2018 with a small tubular adenoma Wearing a heart monitor at the 03/02/2024 OV for SOB and irregular heartbeat Blind in right eye Surgical History Surgery Date(Month/Year) Retinal laser 2009 Cleft lip repair Tubes in ears
--- OUTSIDE RECORDS SUMMARY | 2024-12-13 10:43 | XMS_ITS ---
Author Organization [facility] Address [address] [place] [address] Care Team Providers Care Tower Equipment Repairer Name Role Phone Justin Estrada MD Primary Care Provider Bertrand Carranza Unavailable [phone] Allergies No Known Allergies REASON FOR VISIT [...] Status Risk Notes Problem Colon cancer screening (121001822) Colon cancer screening (Z12.11) Active confirmed Problem Family history of polyp of colon (250941130) Family history of colon polyps, unspecified (Z83.719) Active confirmed Vital Signs Temperature 98.0 degrees Fahrenheit 03/02/20 24 Blood pressure systolic 000 mm Hg 03/02/20 Blood pressure diastolic 00 mm Hg 024 Height 69 in 03/02/2024 Weight 187 lbs 03/02/2024 BMI 27.61 kg/m2 03/02/2024 Encounters Encounter Location Date Provider Diagnosis [facility] [address] [place] [address] 03/02/2024 Bertrand Musa Encounter for screen ing [...] Needs cardiology clearance fromNorma Bond NP at [facility] Overall, Ashia appears well and is not [...] Needs cardiology clearance fromNorma Bond NP at [facility] Future Test Test Name Order Date COLONOSCOPY 03/02/2024 Next Appt Details Follow Up: prn, Reason: Progress Notes * ASHIA BRYSONDOB:1970 ([age] yo M)Acc No.[id number]:03/02/2024 Progress Notes Patient:?ASHIA BRYSON Provider:?Bertrand Musa MD :1970???Age:54 Y???Sex:Male John e:03/02/2024 Address:[address] [place], [place] [id number] Pcp:Justin Estrada MD Subjective: * Chief Complaints: [...] status: . 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 ???Nonsmoker; no sig alcohol. [...] Needs cardiology clearance fromNorma Bond NP at [facility]?? * Procedure Codes:? * Preventive Medicine:? ??Counseling:?Care goal follow-up plan:?Above Normal BMI Follow-up?Giving encouragement to exercise,?BMI management provided?Yes.? * Follow Up:?prn * * Sign off status: Completed true * Provider:?Bertrand Musa MD Date:? 024 Generated for Evangelinai john/Emerson/eTransmitting on:?12/13/2024 10:42 AM EDT History and Physical Notes * [...]
--- OUTSIDE RECORDS SUMMARY | 2024-12-13 10:43 | XMS_ITS | Clinical Summary ---
Author Organization [facility] Address [address] [place] [address] Phone Care Team Providers Care [employer] Name Role Phone Justin Estrada MD Primary Care Provider [phone] Allergies No known active allergies Medications amLODIPine [...] Health Maintenance Due Date Last Done Comments Hepatitis B Vaccine (1 of 3 - 19+ 3-dose series) 01/12 Pneumococcal Vaccine: 50+ Years (1 of 2 - PCV) 987 Colorectal Cancer Screening: Annual FOBT 01/12/2017 Colorectal Cancer Screening: Colonoscopy 01/12/2017 Colorectal Cancer Screening: Sigmoidoscopy 01/12/2017 Influenza Vaccine (Season Ended) 2025 Insurance [facility] Care Teams [employer] Relationship Specialty Start Date End Date Justin Estrada MD [address] [place] PCP - General 08/20/20
[2024-12-13 12:47] LABS: Anion Gap 12 (12-20); Blood Urea Nitrogen 28 mg/dL (9-16); Calcium 8.9 mg/dL (8.4-10.2); Carbon Dioxide 26 mmol/L (22-29); Chloride 102 mmol/L (96-108); Cholesterol 131 mg/dL (<200); Estimated Glomerular Filt Rate 53; Glucose Random 154 mg/dL (60-115); HDL Cholesterol 53 mg/dL (>40); LDL Cholesterol Calculated 67 mg/dL (<100); Potassium 4.8 mmol/L (3.3-5.1); Sodium 135 mmol/L (135-145); Triglycerides 55 mg/dL (<150)
== END 2024-12-13 09:41 | disposition home or self-care (01) ==
LOC: HO.10HDL 09:40
PROVIDERS: Visit Provider Internal Medicine Hypertension Specialist
DX: I25.10 Atherosclerotic heart disease of native coronary artery without angina pectoris (principal); N18.30 Chronic kidney disease, stage 3 unspecified
CPT/HCPCS: 36415; 80048; 80061

== ENCOUNTER 2024-12-20 09:27 | Outpatient (AMB) | payer MEDICARE, MEDICAID, SELFPAY ==
[2024-12-20 09:46] VITALS: BP 146/70; PULSE 61; O2SAT 99; BMI 28.8
--- NOTE | 2024-12-20 09:46 | HO.NEPHOV ---
Vital Signs 12/20/24 09:46 Height 5 ft 9 in Weight 195 lb BMI 28.8 BP 146/70 H Blood Pressure Location Lt brachial Position Sitting Pulse 61 Pulse Source Pulse Oximeter Pulse Oximetry (%) 99 Oxygen Delivery Method Room Air Intake Visit Reasons: CKD/ Conf Transportation Equipment Painter Required: No Accompanied by: Self / Same As Patient Allergies No Known Allergies [No Known Allergies*] Allergy (Verified 12/20/24 09:48) Medication List - Last Reconciled 12/20/24 by Juaquin Ozuna MD amlodipine 10 mg PO DAILY aspirin 81 mg PO DAILY atorvastatin 40 mg PO BEDTIME cholecalciferol (vitamin D3) 125 mcg PO DAILY glipizide 5 mg PO DAILY lisinopril 10 mg PO DAILY sodium zirconium cyclosilicate (Lokelma) 5 grams PO Q OTHER DAY HPI Comments Details: Juan José is a middle-aged man with a history of diabetes mellitus and CKD. From renal standpoint is doing very well. He has CKD with a baseline creatinine 1.6 mg/dL. Juan José has a history of diabetes mellitus for more than 10 years complicated by retinopathy. 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 History of hypertension for more than 10 years which has been well controlled as well. Renal ultrasonogram showed a large postvoid residual back in 2018. However repeat renal ultrasonogram was unremarkable in 2020. In 2019 lisinopril was decreased by 50% due to elevation in creatinine and relatively low blood pressure. Since then serum creatinine stable and blood pressure has been well controlled as well. Today he has no cough HAs shortness of breath on exertion. Undergoing cardiac evaluation 06/28/24 Waiting for colonscopy tomorrow and CTA of coronaries next month 10/04/24 Doing well No new issues 12/20/24 54-year-old male presenting for follow-up related to chronic kidney disease and essential hypertension. His kidney function has shown an improvement, with a GFR increase from 49% to 53% since October. This suggests a stabilization of his renal condition, attributed partly to the ongoing lisinopril regimen which addresses both hypertension and proteinuria. He complies with dietary adjustments, especially concerning potassium levels, by taking a supplemental binding agent every other day. Of note is a history of cardiac catheterization indicating mostly benign findings, with noted instances of near regular heartbeats and occasional mild shortness of breath. An upcoming pulmonary function test has been scheduled to further evaluate these respiratory symptoms. Blood pressure management remains a priority, although the patient notes a prior reading was higher, possibly due to transient stress or activity levels at the time of measurement. [facility] Medical History Vision loss of right eye Hyperlipidemia Accelerated junctional rhythm PAC (premature atrial contraction) Palpitations Diabetes Chronic renal insufficiency HTN (hypertension) Surgical History H/O colonoscopy History of placement of ear tubes History of repair of cleft lip Social History Household Members: Spouse Are you a primary child care aide to a significant other at home: No Alcohol intake: never Patient Tobacco Use Status: Never used Tobacco e-Cigarette/Vaping Use: Never Used Physical Exam Vital Signs: Last Vital Signs Pulse 61 12/20/24 09:46 BP 146/70 H 12/20/24 09:46 Pulse Ox 99 12/20/24 09:46 Oxygen Delivery Method Room Air 12/20/24 09:46 BMI result Body Mass Index 28.8 Const General: comfortable Nutritional Appearance: well nourished Orientation/consciousness: patient oriented x3 HEENT Head: No normal to inspection Mouth: moist mucous membranes Neck Neck: Yes supple and Yes no JVD Resp Auscultation: clear to auscultation bilaterally and no rales Cardio Jugular venous distension: no JVD Palpation: no palpable S3 and no palpable S4 Heart sounds: no rubs GI Palpation (GI): Soft to palpation and nontender Percussion: No Fluid wave present General: Yes no CVA tenderness Back/Spine/Pelvis Back: no CVA tenderness Skin General skin exam: no rashes or lesions noted Neuro General: patient oriented x3 Extrem General: Yes no pedal edema and No clubbing Results Reviewed Nephrology Results: Hgb 13.8 g/dl (14.0-18.0) L 10/25/24 WBC 7.3 X10*3/uL (4.8-10.8) 10/25/24 Plt Count 212 X10*3/uL (160-400) 10/25/24 Sodium 135 mmol/L (135-145) 12/13/24 Potassium 4.8 mmol/L (3.3-5.1) 12/13/24 Chloride 102 mmol/L (96-108) 12/13/24 Carbon Dioxide 26 mmol/L (22-29) 12/13/24 BUN 28 mg/dL (9-16) H 12/13/24 Creatinine 1.39 mg/dL (0.5-1.4) 12/13/24 Calcium 8.9 mg/dL (8.4-10.2) 12/13/24 Urine Protein Trace mg/dL (Neg-Trace) 10/01/24 Urine Creatinine 52.49 mg/dL 10/01/24 Assessment & Plan Assessment & Plan (1) CKD (chronic kidney disease) stage 3, GFR 30-59 ml/min: Code(s): N18.30 - Chronic kidney disease, stage 3 unspecified Category: Medical Plan: . CKD 3 in a setting of longstanding diabetes mellitus hypertension. Renal function stable at this time. Goal is to slow the proximal disease. Continue with Shravan inhibitor for renal protection. He will benefit from an SGLT 2 inhibitor. . (2) HTN (hypertension): Code(s): I10 - Essential (primary) hypertension Category: Medical Plan: Blood pressure is well controlled. Continue with current antihypertensive regimen. Discussed low-sodium diet. (3) Diabetes mellitus with chronic kidney disease: Code(s): E11.22 - Type 2 diabetes mellitus with diabetic chronic kidney disease Category: Medical Plan: Goal is to maintain A1c less than 7%. Again we discuss the importance of diet. (4) Hyperkalemia: Code(s): E87.5 - Hyperkalemia Category: Medical Plan: History of hyperkalemia in the setting of chronic kidney disease and continues of Shravan inhibitor. potassium potassium has improved. He should stay on low-potassium diet Plan The patient will continue lisinopril for chronic kidney disease and hypertension, given its effectiveness in reducing proteinuria . We will maintain current dietary potassium management with supplements and continue to monitor blood pressure carefully. Stay on Lokelma The pulmonary function test will proceed as scheduled to investigate shortness of breath. The patient is scheduled for a six-month follow-up, with the acknowledgment that he can reach out sooner if necessary. Orders: Orders Basic Metabolic Panel 3 Months N18.30 - Chronic kidney disease, stage 3 unspecified Coding Level of Care Code Est Pt Level 4 (69883) Diagnoses CKD (chronic kidney disease) stage 3, GFR 30-59 ml/min N18.30 HTN (hypertension) I10 Diabetes mellitus with chronic kidney disease E11.22 Hyperkalemia E87.5
--- OUTSIDE RECORDS SUMMARY | 2024-12-20 10:06 | XMS_ITS ---
Author Organization [facility] Address [address] [place] [address] Care Team Providers Care Field Technical Support Consultant Name Role Phone Justin Estrada MD Primary Care Provider Celestinaa Bertrand Joyner Unavailable [phone] REASON FOR VISIT colon cancer screening Problems Problem Type SNOMED Code ICD Code Onset Dates Problem Status W/U Status Risk Notes Problem Diverticular disease of colon (388648049) Diverticulosis of large intestine without perforation or abscess without bleeding (K57.30) Active confirmed Encounters Encounter Location Date Provider Diagnosis [facility] Outpatient [address] [place] [phone] 06/29/2024 Bertrand Musa Colon cancer scree unique [...] * ASHIA BRYSONDOB:1970 ([age] yo M)Acc No.[id number]:06/29/2024 COLON WITH MAC Patient:?ASHIA BRYSON Provider:?Bertrand Musa MD :1970???Age:54 Y???Sex:Male John e:06/29/2024 Address: [place], [place] Pcp:Justin Estrada MD Subjective: * Chief Complaints: * ???1. Colon cancer screening . * Medical History:? Objective: * Vitals:? Assessment: * Assessment: 1.?Colon cancer screening - Z12.11 (Primary)???2.?Colon polyps - K63.5???3.?Diverticulosis of large intestine without perforation or abscess without bleeding - K57.30???4.?Other hemorrhoids - K64.8??? Plan: * Treatment: * Procedure Codes:?18269 LESIO N REMOVAL COLONOSCOPY, Modifiers: PT , [...] MD Date:? 024 Generated for Kristen lopez/Emerson/eTransmitting on:?12/20/2024 10:05 AM EDT
--- OUTSIDE RECORDS SUMMARY | 2024-12-20 10:06 | XMS_ITS | Clinical Summary ---
Author Organization [facility] Address [address] [place] [address] Phone Care Team Providers Care Binder And Wrapper Packer Name Role Phone Justin Estrada MD Primary Care Provider [phone] Allergies No known active allergies Medications amLODIPine [...] 01/12/2017 Influenza Vaccine (Season Ended) 2025 Insurance [facility] Care Teams Binder And Wrapper Packer Relationship Specialty Start Date End Date Justin Estrada MD [address] [place] PCP - General 08/20/20
--- OUTSIDE RECORDS SUMMARY | 2024-12-20 10:06 | XMS_ITS ---
Author Organization [facility] Address [address] [place] [address] Care Team Providers Care Armed Security Officer Name Role Phone Justin Estrada MD Primary Care Provider Bertrand Carranza Unavailable [phone] Allergies No Known Allergies REASON FOR VISIT [...] Status Risk Notes Problem Colon cancer screening (391465596) Colon cancer screening (Z12.11) Active confirmed Problem Family history of polyp of colon (614693714) Family history of colon polyps, unspecified (Z83.719) Active confirmed Vital Signs Temperature 98.0 degrees Fahrenheit 03/02/20 24 Blood pressure systolic 000 mm Hg 03/02/20 Blood pressure diastolic 00 mm Hg 024 Height 69 in 03/02/2024 Weight 187 lbs 03/02/2024 BMI 27.61 kg/m2 03/02/2024 Encounters Encounter Location Date Provider Diagnosis [facility] [address] [place] [address] 03/02/2024 Bertrand Musa Encounter for screen ing [...] Needs cardiology clearance fromNorma Bond NP at [facility] Overall, Ashia appears well and is not [...] Needs cardiology clearance fromNorma Bond NP at [facility] Future Test Test Name Order Date COLONOSCOPY 03/02/2024 Next Appt Details Follow Up: prn, Reason: Progress Notes * ASHIA BRYSONDOB:1970 ([age] yo M)Acc No.[id number]:03/02/2024 Progress Notes Patient:?ASHIA BRYSON Provider:?Bertrand Musa MD :1970???Age:54 Y???Sex:Male John e:03/02/2024 Address:[address] [place], [place] [id number] Pcp:Justin Estrada MD Subjective: * Chief Complaints: [...] . 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 ???Nonsmoker; no sig alcohol. [...] Needs cardiology clearance fromNorma Bond NP at [facility]?? * Procedure Codes:? * Preventive Medicine:? ??Counseling:?Care goal follow-up plan:?Above Normal BMI Follow-up?Giving encouragement to exercise,?BMI management provided?Yes.? * Follow Up:?prn * * Sign off status: Completed true * Provider:?Bertrand Musa MD Date:? 024 Generated for Evangelinai john/Emerson/eTransmitting on:?12/20/2024 10:06 AM EDT History and Physical Notes * [...]
--- OUTSIDE RECORDS SUMMARY | 2024-12-20 10:06 | XMS_ITS | Patient Health Record ---
Author Organization [facility] Address [address] [place] [address] Care Team Providers Care Television Mechanic Name Role Phone Justin Estrada MD Primary Care Provider Bertrand Carranza [phone] Allergies No Known Allergies Results Component Value Reference Range Notes Glucose, Whole Blood Reviewed date:06/29/2024 02:22:00 PM Interpretation: Performing Lab:[facility], [address] [place] [phone] Notes/Report: Glucose, Whole Blood 166 60-115 mg/dL METER # : [id number] Pathology (Not yet reviewed by provider) Interpretation: Performing Lab:[facility], [address] [place] [phone] Notes/Report: ---- Name: Ashia Bryson Age/Sex: 54/M : 1970 Unit#: [id number] Attend Dr: Bertrand Musa MD Re06/29/24 Status : [facility] Location: [facility] Disch: ---- SPEC : [id number] RECD : 06/29/24 STATUS: ARMIN ANN NUM: [id number] CLAUDIA: 06/29/24 [facility] DR: Bertrand Musa MD ENTERED: 06/29/24-05 [...] Physicians [address] [place] [address] Bertrand Musa MD [facility] [address] [place] [address] ---- Signed (signature on file) Kassie Gan [...] Status Risk Notes Problem Colon cancer screening (271875509) Colon cancer screening (Z12.11) Active confirmed Problem 994587105 Encounter for screening for malignant neoplasm of colon (Z12.11) Active confirmed Problem Diverticular disease of colon (155369216) Diverticulosis of large intestine without perforation or abscess without bleeding (K57.30) Active confirmed Problem Preprocedural examination done (572312492025253) Preprocedural examination (Z01.818) Active confirmed Problem Family history of polyp of colon (249599235) Family history of colon polyps, unspecified (Z83.719) Active confirmed Vital Signs Temperature 98.0 degrees Fahrenheit 03/02/2024 Blood pressure diastolic 00 mm Hg 03/02/2024 Height 69 in 03/02/2024 Blood pressure systolic 000 mm Hg 03/02/2024 Weight 187 lbs 03/02/2024 BMI 27.61 kg/m2 03/02/2024 Encounters Encounter Location Date Provider Diagnosis [facility] Outpatient [address] [place] [id number] 06/29/2024 Bertrand Musa Colon cancer screeni ng Z12.11 ; Colon polyps K63.5 ; Diverticulosis of large intestine without perforation or abscess without bleeding K57.30 and Other hemorrhoids K64.8 [facility] [address] [place] [address] 03/02/2024 Bertrand Musa Encounter for screen ing [...] Needs cardiology clearance fromNorma Bond NP at [facility] Overall, Ashai appears well and is not having any [...] End Date MEDICARE OF [place] [address] [place] [address] [id number] ASHIA BRYSON Self - patient is the insured MEDICAID OF [facility] [address] [place] [phone] [id number] ASHIA BRYSON Self - patient is the insured Medical (General) History Medical History History ICD Code NIDDM Hypertension Denies CT,CVA,Lung disease,renal disease Hyperlipdemia CKD stage 3 Colonoscopy 12/2018 with a small tubular adenoma Wearing a heart monitor at the 03/02/2024 OV for SOB and irregular heartbeat Blind in right eye Surgical History Surgery Date(Month/Year) Retinal laser 2009 Cleft lip repair Tubes in ears
--- OUTSIDE RECORDS SUMMARY | 2024-12-20 10:06 | XMS_ITS | Data Portability ---
Author Organization [place] [facility] Address [address] [address] Care Team Providers Care Collet Gluer Name Role Phone FAUSTO HOROWITZ Primary Care [...] e otitis externa of bilatera l ears [id number] 01864 Completed 201703/11/2024 Other infectiv e otitis externa, bilatera l; Note: Date Diagnose d: 05/28/20 18 2:18 PM (H60.393 ) Not Available [facility] 08/[facility] 4 02:18:42 Sensorin eural hearing loss of billauraa l ears 635533289 Active 2020 Sensorin eural hearing loss, bilatera l; Note: Date Diagnose d: 1 1:52 PM (H90.3) Not Available [facility] 4 02:18:53 Impacted cerumen of matthewa l ears 01814641126 31266 Active 2020 Impacted cerumen, bilatera l; Note: Date Diagnose d: 1 1:52 PM (H61.23) Not Available [facility] 4 02:18:37 Problem Notes None recorded. Procedures Surgical History Date Name Laterality Status Provider Name and Address Organization Details Recorded Time 4 Cerumen removal without microscope bilat completed KATHY DELACRUZ PA-C [address] [place] [address], [phone], [facility] 07/04/2024 14:34:27 Imaging Results None recorded. Procedure Notes None recorded. Medical Equipment None Reported. Medications Name Sig Start Date Stop Date Status Note LastModified by Organization Details LastModified Time atorvasta tin 20 mg tablet active Not Available Not Available Not Available lisinopri l 20 mg tablet active Not Available Not Available Not Available Ciloxan 0.3 % eye drops 2017 active Medicatio n ID: [id number] Du ration Value: 14 Prescrib ed By Name: Justo Keene Name: Ciloxan S end Method: E-Prescri bed Subs Allowed: subs OK Specia l Instructi on: Instill 4 drops twice a day into the affected ear. [facility] cationGen ericName: Ciloxan Not Available Not Available Not Available ciproflox acin 500 mg tablet 1 tablet by mouth 07/15 completed Medicatio n ID: [id number] Du ration Value: 14 Prescrib ed By Name: CRYS Santana Name: ciproflox acin HCl Send Method: E-Prescri bed Subs Allowed: subs OK Medica tionGener icName: ciproflox acin HCl Not Available Not Available Not Available amlodipin e 10 mg tablet active Not Available Not Available Not Available metformin 1,000 mg tablet 07/15 completed Medicatio n ID: [id number] Du ration Value: 30 Brand Name: metformin Send Method: E-Prescri bed Subs Allowed: subs OK Medica tionGener icName: metformin Not Available Not Available Not Available lisinopri l 40 mg tablet 09/24 completed Medicatio n ID: [id number] Du ration Value: 30 Brand Name: lisinopri l Send Method: E-Prescri bed Subs Allowed: subs OK Medica tionGener icName: lisinopri l Not Available Not Available Not Available glipizide 5 mg tablet active Not Available Not Available Not Available TobraDex 0.3 %-0.1 % eye drops,manuelito pension 2017 active Medicatio n ID: [id number] Du ration Value: 14 Prescrib ed By [...] Updated DateTime 07/04/2024 165.1 cm 30.8 kg/m2 86646.59 g Adalberto Robles [place] - [facility] 07/04/2024 13:37:43 Social History None recorded. Functional Status None recorded. Mental Status None recorded. Family History Nothing Reported. Medical History No medical history recorded. Past Encounters Encounter ID Performer Location Encounter Start Date Encounter Closed Date Diagnosis/Indication Diagnosis SNOMED-CT Code Diagnosis ICD10 Code Diagnosis Note [id number] KATHY DELACRUZ PA-C [facility] [address] [address] 07/04/2024 13:21:57 07/04/2024 14:30:39 Impacted cerumen of bilateral ears [id number] 745588 H61.23 Sensorineu ral hearing loss of bilateral ears 720308153 H90.3 Health Concerns Section Related Observation LastModified by Organization Detai ls LastModified Time None Recorded Concern Status LastModified by Organization Details LastModified Time None Recorded Advance Directives Directive None Recorded Payers Insurance Date Sequence Insurance Name Policy Number Policy Correa Covered Member ID Correa Member ID Guarantor Name 07/04/2024 2 [place] [facility] Juan José Muñiz [id number] Juan José Muñiz 07/04/2024 1 MED[place] B[place] [employer] [facility] Juan José Muñiz [id number] Juan José Muñiz Notes Date Note Type Note Provider Name and Address Organization Details Recorded Time 07/04/2024 text/html 54 year old male with profound hearing loss and bilateral amplification presents for cerumen removal. Reports no change in hearing. Amplification dispensed from the [employer], and patient feels the aids are working well. Denies otalgia, otorrhea, or tinnitus. Occasional Qtip use in external ear. TSERING MAHAJAN MD [address] [place] [address], [phone] - [facility] 07/04/2024 15:40:09
== END 2024-12-20 09:54 | disposition home or self-care (01) ==
LOC: HO.HKA 09:28
PROVIDERS: PCP Internal Medicine; Visit Provider Internal Medicine Hypertension Specialist
DX: E11.22 Type 2 diabetes mellitus with diabetic chronic kidney disease (principal); N18.30 Chronic kidney disease, stage 3 unspecified; I10 Essential (primary) hypertension; E87.5 Hyperkalemia
CPT/HCPCS: 99214

== ENCOUNTER → 2024-12-20 09:27 | Outpatient (BNVA) | payer MEDICARE, MEDICAID, SELFPAY | PROVIDERS: PCP Internal Medicine; Visit Provider Internal Medicine Hypertension Specialist | DX: E11.22 Type 2 diabetes mellitus with diabetic chronic kidney disease (principal); I12.9 Hypertensive chronic kidney disease with stage 1 through stage 4 chronic kidney disease, or unspecified chronic kidney disease; N18.30 Chronic kidney disease, stage 3 unspecified; E87.5 Hyperkalemia | CPT/HCPCS: 99212 ==

== ENCOUNTER 2024-12-29 07:27 | Outpatient (REF) | payer MEDICARE, MEDICAID, SELFPAY ==
--- OUTSIDE RECORDS SUMMARY | 2024-12-29 07:29 | XMS_ITS | Patient Health Record ---
Author Organization [facility] Address [address] [place] [address] Care Team Providers Care Visual Supervisor Name Role Phone Justin Estrada MD Primary Care Provider Bertrand Carranza [phone] Allergies No Known Allergies Results Component Value Reference Range Notes Glucose, Whole Blood Reviewed date:06/29/2024 02:22:00 PM Interpretation: Performing Lab:[facility], [address] [place] [phone] Notes/Report: Glucose, Whole Blood 166 60-115 mg/dL METER # : [id number] Pathology (Not yet reviewed by provider) Interpretation: Performing Lab:[facility], [address] [place] [phone] Notes/Report: ---- Name: Ashia Bryson Age/Sex: 54/M : 1970 Unit#: [id number] Attend Dr: Bertrand Musa MD Re06/29/24 Status : [facility] Location: [facility] Disch: ---- SPEC : [id number] RECD : 06/29/24 STATUS: ARMIN ANN NUM: [id number] CLAUDIA: 06/29/[address] [facility] DR: Bertrand Musa MD ENTERED: 06/29/24-05 [...] Physicians [address] [place] [address] Bertrand Musa MD [facility] [address] [place] [address] ---- Signed (signature on file) Kassie Gan [...] Status Risk Notes Problem Colon cancer screening (105462023) Colon cancer screening (Z12.11) Active confirmed Problem 855758106 Encounter for screening for malignant neoplasm of colon (Z12.11) Active confirmed Problem Diverticular disease of colon (094929181) Diverticulosis of large intestine without perforation or abscess without bleeding (K57.30) Active confirmed Problem Preprocedural examination done (017908097616748) Preprocedural examination (Z01.818) Active confirmed Problem Family history of polyp of colon (381595358) Family history of colon polyps, unspecified (Z83.719) Active confirmed Vital Signs Temperature 98.0 degrees Fahrenheit 03/02/2024 Blood pressure diastolic 00 mm Hg 03/02/2024 Height 69 in 03/02/2024 Blood pressure systolic 000 mm Hg 03/02/2024 Weight 187 lbs 03/02/2024 BMI 27.61 kg/m2 03/02/2024 Encounters Encounter Location Date Provider Diagnosis [facility] Outpatient [address] [place] [id number] 06/29/2024 Bertrand Musa Colon cancer screeni ng Z12.11 ; Colon polyps K63.5 ; Diverticulosis of large intestine without perforation or abscess without bleeding K57.30 and Other hemorrhoids K64.8 [facility] [address] [place] [address] 03/02/2024 Bertrand Musa Encounter for screen ing [...] Needs cardiology clearance fromNorma Bond NP at [facility] Overall, Ashia appears well and is not [...] of his diabetes medication for the procedure. sAhia was comfortable with this plan. Thank you [...] End Date MEDICARE OF [place] [address] [place] [address] [id number] ASHIA BRYSON Self - patient is the insured MEDICAID OF [facility] [address] [place] [phone] [id number] ASHIA BRYSON Self - patient is the insured Medical (General) History Medical History History ICD Code NIDDM Hypertension Denies VA,CVA,Lung disease,renal disease Hyperlipdemia CKD stage 3 Colonoscopy 12/2018 with a small tubular adenoma Wearing a heart monitor at the 03/02/2024 OV for SOB and irregular heartbeat Blind in right eye Surgical History Surgery Date(Month/Year) Retinal laser 2009 Cleft lip repair Tubes in ears
--- OUTSIDE RECORDS SUMMARY | 2024-12-29 07:29 | XMS_ITS | Clinical Summary ---
Author Organization [facility] Address [address] [place] [address] Phone Care Team Providers Care Waterproofing Machine Operator Name Role Phone Justin Estrada MD Primary Care Provider Allergies No known active allergies Medications amLODIPine [...] 01/12/2017 Influenza Vaccine (Season Ended) 2025 Insurance [facility] Care Teams Waterproofing Machine Operator Relationship Specialty Start Date End Date Justin Estrada MD [address] [place] PCP - General 08/20/20
--- OUTSIDE RECORDS SUMMARY | 2024-12-29 07:29 | XMS_ITS ---
Author Organization [facility] Address [address] [place] [address] Care Team Providers Care Veterinary Physiologist Name Role Phone Justin Estrada MD Primary Care Provider Celestinaa Bertrand Joyner Unavailable [phone] REASON FOR VISIT colon cancer screening Problems Problem Type SNOMED Code ICD Code Onset Dates Problem Status W/U Status Risk Notes Problem Diverticular disease of colon (945807334) Diverticulosis of large intestine without perforation or abscess without bleeding (K57.30) Active confirmed Encounters Encounter Location Date Provider Diagnosis [facility] Outpatient [address] [place] [phone] 06/29/2024 Bertrand Musa Colon cancer scree unique [...] * ASHIA BRYSONDOB:1970 ([age] yo M)Acc No.[id number]:06/29/2024 COLON WITH MAC Patient:?ASHIA BRYSON Provider:?Bertrand Musa MD :1970???Age:54 Y???Sex:Male John e:06/29/2024 Address: [place], [place] Pcp:Justin Estrada MD Subjective: * Chief Complaints: * ???1. Colon cancer screening . * Medical History:? Objective: * Vitals:? Assessment: * Assessment: 1.?Colon cancer screening - Z12.11 (Primary)???2.?Colon polyps - K63.5???3.?Diverticulosis of large intestine without perforation or abscess without bleeding - K57.30???4.?Other hemorrhoids - K64.8??? Plan: * Treatment: * Procedure Codes:?11797 LESIO N REMOVAL COLONOSCOPY, Modifiers: PT , [...] MD Date:? 024 Generated for Kristen lopez/Emerson/eTransmitting on:?12/29/2024 07:29 AM EDT
--- OUTSIDE RECORDS SUMMARY | 2024-12-29 07:29 | XMS_ITS | Data Portability ---
Author Organization [place] [facility] Address [address] [address] Care Team Providers Care Hvac Services Professional Name Role Phone FAUSTO HOROWITZ Primary Care [...] e otitis externa of bilatera l ears 60013535191 08845 Completed 201703/11/2024 Other infectiv e otitis externa, bilatera l; Note: Date Diagnose d: 05/28/20 18 2:18 PM (H60.393 ) Not Available [facility] 08/02/202 4 02:18:42 Sensorin eural hearing loss of billauraa l ears 467322714 Active 2020 Sensorin eural hearing loss, bilatera l; Note: Date Diagnose d: 1 1:52 PM (H90.3) Not Available [facility] 4 02:18:53 Impacted cerumen of matthewa l ears 98536260110 48455 Active 2020 Impacted cerumen, bilatera l; Note: Date Diagnose d: 1 1:52 PM (H61.23) Not Available [facility] 4 02:18:37 Problem Notes None recorded. Procedures Surgical History Date Name Laterality Status Provider Name and Address Organization Details Recorded Time 4 Cerumen removal without microscope bilat completed KATHY DELACRUZ PA-C [address] [place] [address], [address], [facility] 07/04/2024 14:34:27 Imaging Results None recorded. Procedure Notes None recorded. Medical Equipment None Reported. Medications Name Sig Start Date Stop Date Status Note LastModified by Organization Details LastModified Time atorvasta tin 20 mg tablet active Not Available Not Available Not Available lisinopri l 20 mg tablet active Not Available Not Available Not Available Ciloxan 0.3 % eye drops 2017 active Medicatio n ID: [id number] Du ration Value: 14 Prescrib ed By Name: Justo Keene Name: Ciloxan S end Method: E-Prescri bed Subs Allowed: subs OK Specia l Instructi on: Instill 4 drops twice a day into the affected ear. [facility] cationGen ericName: Ciloxan Not Available Not Available Not Available ciproflox acin 500 mg tablet 1 tablet by mouth 07/15 completed Medicatio n ID: [id number] Du ration Value: 14 Prescrib ed By Name: CRYS Santana Name: ciproflox acin HCl Send Method: E-Prescri bed Subs Allowed: subs OK Medica tionGener icName: ciproflox acin HCl Not Available Not Available Not Available amlodipin e 10 mg tablet active Not Available Not Available Not Available metformin 1,000 mg tablet 07/15 completed Medicatio n ID: [id number] Du ration Value: 30 Brand Name: metformin Send Method: E-Prescri bed Subs Allowed: subs OK Medica tionGener icName: metformin Not Available Not Available Not Available lisinopri l 40 mg tablet 09/24 completed Medicatio n ID: [id number] Du ration Value: 30 Brand Name: lisinopri l Send Method: E-Prescri bed Subs Allowed: subs OK Medica tionGener icName: lisinopri l Not Available Not Available Not Available glipizide 5 mg tablet active Not Available Not Available Not Available TobraDex 0.3 %-0.1 % eye drops,manuelito pension 2017 active Medicatio n ID: [id number] Du ration Value: 14 Prescrib ed By [...] Updated DateTime 07/04/2024 165.1 cm 30.8 kg/m2 90720.59 g Adalberto Robles [place] - [facility] 07/04/2024 13:37:43 Social History None recorded. Functional Status None recorded. Mental Status None recorded. Family History Nothing Reported. Medical History No medical history recorded. Past Encounters Encounter ID Performer Location Encounter Start Date Encounter Closed Date Diagnosis/Indication Diagnosis SNOMED-CT Code Diagnosis ICD10 Code Diagnosis Note [id number] KATHY DELACRUZ PA-C [facility] [address] [address] 07/04/2024 13:21:57 07/04/2024 14:30:39 Impacted cerumen of bilateral ears 9377500174 716308 H61.23 Sensorineu ral hearing loss of bilateral ears 611989086 H90.3 Health Concerns Section Related Observation LastModified by Organization Detai ls LastModified Time None Recorded Concern Status LastModified by Organization Details LastModified Time None Recorded Advance Directives Directive None Recorded Payers Insurance Date Sequence Insurance Name Policy Number Policy Correa Covered Member ID Correa Member ID Guarantor Name 07/04/2024 2 [place] [facility] Juan José Muñiz [id number] Juan José Muñiz 07/04/2024 1 [place] [employer] Juan José Muñiz [id number] Juan José Muñiz Notes Date Note Type Note Provider Name and Address Organization Details Recorded Time 07/04/2024 text/html 54 year old male with profound hearing loss and bilateral amplification presents for cerumen removal. Reports no change in hearing. Amplification dispensed from the [employer], and patient feels the aids are working well. Denies otalgia, otorrhea, or tinnitus. Occasional Qtip use in external ear. TSERING MAHAJAN MD [address] [place] [address], [phone] - [facility] 07/04/2024 15:40:09
--- OUTSIDE RECORDS SUMMARY | 2024-12-29 07:29 | XMS_ITS ---
Author Organization [facility] Address [address] [place] [address] Care Team Providers Care Silversmith Apprentice Name Role Phone Justin Estrada MD Primary Care Provider Bertrand Carranza Unavailable [phone] Allergies No Known Allergies REASON FOR VISIT [...] Status Risk Notes Problem Colon cancer screening (154569541) Colon cancer screening (Z12.11) Active confirmed Problem Family history of polyp of colon (413925732) Family history of colon polyps, unspecified (Z83.719) Active confirmed Vital Signs Temperature 98.0 degrees Fahrenheit 03/02/20 24 Blood pressure systolic 000 mm Hg 03/02/20 Blood pressure diastolic 00 mm Hg 024 Height 69 in 03/02/2024 Weight 187 lbs 03/02/2024 BMI 27.61 kg/m2 03/02/2024 Encounters Encounter Location Date Provider Diagnosis [facility] [address] [place] [address] 03/02/2024 Bertrand Musa Encounter for screen ing [...] cardiology clearance fromNorma Bond NP at [facility] Overall, Ashia appears well and is not [...] cardiology clearance fromNorma Bond NP at [facility] Future Test Test Name Order Date COLONOSCOPY 03/02/2024 Next Appt Details Follow Up: prn, Reason: Progress Notes * ASHIA BRYSONDOB:1970 ([age] yo M)Acc No.[id number]:03/02/2024 Progress Notes Patient:?ASHIA BRYSON Provider:?Bertrand Musa MD :1970???Age:54 Y???Sex:Male John e:03/02/2024 Address:[address] [place], [place] [id number] Pcp:Justin Estrada MD Subjective: * Chief Complaints: [...] status: . 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 ???Nonsmoker; no sig alcohol. [...] cardiology clearance fromNorma Bond NP at [facility]?? * Procedure Codes:? * Preventive Medicine:? ??Counseling:?Care goal follow-up plan:?Above Normal BMI Follow-up?Giving encouragement to exercise,?BMI management provided?Yes.? * Follow Up:?prn * * Sign off status: Completed true * Provider:?Bertrand Musa MD Date:? 024 Generated for Evangelinai john/Emerson/eTransmitting on:?12/29/2024 07:29 AM EDT History and Physical Notes * [...]
--- NOTE | 2024-12-29 07:55 | PFT_ITS ---
Flows: FEV1: 116 % of predicted at 3.90 L FVC: 118 % of predicted at 5.03 L FEV1/FVC: 77 % Bronchodilator response: Present in small to medium airway only Volumes: Total lung capacity: 103 % of predicted at 6.71 L Residual volume: 88 % of predicted at 1.68 L Slow vital capacity: 107 % of predicted at 5.03 L Expiratory reserve volume: 101 % of predicted at 1.20 L Diffusion capacity: Normal Impression: No obstructive or restrictive ventilatory defect. Bronchodilator response present in small to medium airways only. MTDD
[2024-12-29 08:35] VITALS: PULSE 56; O2SAT 98
== END 2024-12-29 07:28 | disposition home or self-care (01) ==
LOC: HO.RESP 07:27
PROVIDERS: PCP Internal Medicine; Visit Provider Nurse Practitioner Family
DX: R06.02 Shortness of breath (principal)
CPT/HCPCS: 94010; 94640; 94727; 94729

== ENCOUNTER → 2024-12-29 07:55 | Outpatient (BNV) | payer MEDICARE, MEDICAID, SELFPAY | PROVIDERS: PCP Internal Medicine; Visit Provider Internal Medicine Pulmonary Disease | DX: R06.02 Shortness of breath (principal) | CPT/HCPCS: 94060; 94727; 94729 ==

== ENCOUNTER 2025-01-05 10:31 | Outpatient (AMB) | payer MEDICARE, MEDICAID, SELFPAY ==
--- NOTE | 2025-01-05 10:22 | MHC.PC.OV ---
Vital Signs 01/05/25 10:23 Height 5 ft 2 in Weight 192 lb BMI 35.1 BP 126/70 Blood Pressure Location Lt brachial Position Sitting Pulse 60 Pulse Source Pulse Oximeter Temp 97.6 F Temp Source Axillary Pulse Oximetry (%) 98 Oxygen Delivery Method Room Air Intake Visit Reasons: Routine Subscription Agent Required: No Accompanied by: Self / Same As Patient Allergies No Known Allergies [No Known Allergies*] Allergy (Verified 01/05/25 10:24) Medication List - Last Reconciled 01/05/25 by Paola Ashby MD amlodipine 10 mg PO DAILY aspirin 81 mg PO DAILY atorvastatin 40 mg PO BEDTIME cholecalciferol (vitamin D3) 125 mcg PO DAILY FreeStyle Lite Strips (blood sugar diagnostic) once daily and as needed NS glipizide 5 mg PO DAILY lisinopril 10 mg PO DAILY sodium zirconium cyclosilicate (Lokelma) 5 grams PO Q OTHER DAY Tobacco use date assessed: 01/05/25 Dental Screening Dental Screen Date: 01/05/25 Did you have a dental visit in the last 12 months?: No Did you have a dental problem in the last 6 months where you did not have access to dental care?: No HPI HPI Comments History of Present Illness Details Juan José is a middle-aged man with a history of diabetes mellitus, CKD, hyperlipidemia, hypertension, colon polyps presentiing for follow up. Last seen by pcp in September DM: On glipizide 5mg daily. Last A1C 7.4%. Checking blood sugar once daily fasting. Up to date with eye exam, goes once annualy. Does skip doses if BG is low CV: Follows with cardiology. Has undergone extensive testing including PFTs for shortness of breath all of which has been reassuring. Colonoscopy 06/2024-every 5 years. ROS CONSTITUTIONAL: Denies weight loss, fever and chills. HEENT: Denies changes in vision and hearing. RESPIRATORY: Denies SOB and cough. CV: Denies palpitations and CP GI: Denies abdominal pain, nausea, vomiting and diarrhea. : Denies dysuria and urinary frequency. MSK: Denies new myalgia and joint pain. SKIN: Denies rash and pruritus. NEUROLOGICAL: Denies headache PSYCHIATRIC: Denies recent changes in mood. PHYSICAL EXAM: GENERAL: Alert and oriented x 3. NAD EYES: EOMI. Anicteric. HENT: Moist mucous membranes. No scleral icterus. No cervical lymphadenopathy. LUNGS: Clear to auscultation bilaterally. CARDIOVASCULAR: Regular rate and rhythm. No murmur. No JVD. ABDOMEN: Soft, non-tender +bs EXTREMITIES: No edema. Non-tender. SKIN: No rashes or lesions. Warm. NEUROLOGIC: No focal neurological deficits. CN II-XII grossly intact PSYCHIATRIC: Cooperative. Appropriate mood and affect REPLACED BY [facility] Medical History Vision loss of right eye Hyperlipidemia Accelerated junctional rhythm PAC (premature atrial contraction) Palpitations Diabetes Chronic renal insufficiency HTN (hypertension) Surgical History H/O colonoscopy History of placement of ear tubes History of repair of cleft lip Family History Mother No problems noted. Father No problems noted. Social History Household Members: Spouse Housing: House Are you a primary manager career to a significant other at home: No Alcohol intake: never Patient Tobacco Use Status: Never used Tobacco e-Cigarette/Vaping Use: Never Used service: No Current occupational status: employed Cognitive needs: No Hearing needs: No Vision needs: Yes (rx glasses) Questionnaire PHQ-9 Over the last 2 weeks, how often have you been bothered by any of the following problems? 1. Little interest or pleasure in doing things: not at all 2. Feeling down, depressed, or hopeless: not at all 3. Trouble falling or staying asleep, or sleeping too much: not at all 4. Feeling tired or having little energy: not at all 5. Poor appetite or overeating: not at all 6. Feeling bad about yourself - or that you are a failure or have let yourself or your family down: not at all 7. Trouble concentrating on things, such as reading the newspaper or watching television: not at all 8. Moving or speaking so slowly that other people could have noticed. Or the opposite - being so fidgety or restless that you have been moving around a lot more than usual: not at all 9. Thoughts that you would be better off or of hurting yourself in some way: not at all Total score: 0 Depression Screening Interpretation: Negative Depression Screening Done: Yes 57025 - PHQ-9 Billing: Yes Source: Developed by Drs. Bertrand Schwartz, Bryant Nicole and colleagues, with an educational domingo from [employer]. Thrive Questionnaire Date Thrive assessed: 01/05/25 Within the past 12 months, did the food you bought not last and you didn't have the money to get more?: Never true Within the past 12 months, did you worry whether your food would run out before you got money to buy more?: Never true Do you have trouble paying for medicines?: No Do you have trouble getting transportation to medical appointments?: No Do you have trouble paying your heating and electricity bill?: No Do you have trouble taking care of your child, family member or friend?: No Do you have trouble with day-to-day activities such as bathing, preparing meals, shopping, managing finances, etc.?: No Are you currently unemployed and looking for a job?: No Are you interested in more education?: No THRIVE Score: 0 AUDIT C Alcohol Use Questionnaire (AUDIT-C) 1. How often do you have a drink containing alcohol?: Never 3. How often do you have six or more drinks on one occasion?: Never Total Score: 0 JAY-7 AMB Questionnaire JAY-7 Date JAY - 7 assessed: 01/05/25 Feeling nervous, anxious, or on edge: 0 = Not at all Not being able to stop or control worryin = Not at all Worrying too much about different things: 0 = Not at all Trouble relaxin = Not at all Being so restless that it is hard to sit still: 0 = Not at all Becoming easily annoyed or irritable: 0 = Not at all Feeling afraid as if something awful might happen: 0 = Not at all Total JAY-7 score (0-4 normal; 5-9 mild; 10-14 moderate; 15-21 severe): 0 Source: Developed by Drs. Bertrand Schwartz, Bryant Nicole and colleagues, with an educational domingo from [employer] Physical exam (Primary Care) Vital Signs: Last Vital Signs Temp 97.6 F 01/05/25 10:23 Pulse 60 01/05/25 10:23 BP 126/70 01/05/25 10:23 Pulse Ox 98 01/05/25 10:23 Oxygen Delivery Method Room Air 01/05/25 10:23 BMI result Body Mass Index 35.1 Tobacco/Smoking Status: Tobacco use Status Tobacco use date assessed 01/05/25 01/05/25 10:25 Patient Tobacco Use Status Never used Tobacco 01/05/25 10:23 e-Cigarette/Vaping Use Never Used 01/05/25 10:23 PHQ-9: PHQ-9 Score PHQ-9: Total score 0 01/05/25 10:53 Depression Screening Interpretation: Negative Thrive Assessment: Date of Thrive Assessment Date Thrive assessed 01/05/25 01/05/25 10:53 Coding Level of Care Code New Pt Level 4 (61071) Complex EM visit Add On G2211 Diagnoses Type 2 diabetes mellitus with other ophthalmic complication, without long-term current use of insulin E11.39 Diabetes mellitus type: type 2 Diabetes mellitus skilled nursing insulin use: without skilled nursing use Diabetes mellitus complication status: with ophthalmic complications Diabetes mellitus complication detail: with other ophthalmic complication Coronary artery disease involving ugashik coronary artery of ugashik heart without angina pectoris I25.10 Coronary Disease-Associated Artery/Lesion type: ug[place] artery [place] vs. 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 transplanted heart: ug[place] heart Associated angina: without angina Qualified Code(s): I25.10 - Atherosclerotic heart disease of ug[place] coronary artery without angina pectoris (3) S/P cardiac cath: Comment: 11/03/2024, left main normal lad minimal irregularities, left circumflex mild luminal irregularities less than 30% stenosis, RCA mild luminal irregularities less than 30% stenosis. Code(s): Z98.890 - Other specified postprocedural states Category: Surgical (4) CKD (chronic kidney disease) stage 3, GFR 30-59 ml/min: Code(s): N18.30 - Chronic kidney disease, stage 3 unspecified Category: Medical Qualifiers: Chronic kidney disease stage 3 subtype: stage 3b (GFR 30-44) Qualified Code(s): N18.32 - Chronic kidney disease, stage 3b (5) HTN (hypertension): Code(s): I10 - Essential (primary) hypertension Category: Medical Qualifiers: Hypertension type: primary hypertension Qualified Code(s): I10 - Essential (primary) hypertension Plan 54 yo to establish care past medical, surgical, social history reviewed DM-suboptimal control. Due for A1C. Med changes pending labs CAD-bp well controlled CKD-follows with nephrology Orders: Orders Hemoglobin A1c Today E11.22 - Type 2 diabetes mellitus with diabetic chronic kidney disease, I25.10 - Atherosclerotic heart disease of ug[place] coronary artery without angina pectoris, R06.02 - Shortness of breath TSH reflex Free T4 Today I49.8 - Other specified cardiac arrhythmias Hemoglobin A1c 3 Months E11.9 - Type 2 diabetes mellitus without complications Medications: New FreeStyle Lite Strips (blood sugar diagnostic) once daily and as needed 100 ea 3RF NS
[2025-01-05 10:23] VITALS: BP 126/70; PULSE 60; TEMP 36.4; O2SAT 98; BMI 35.1
--- OUTSIDE RECORDS SUMMARY | 2025-01-05 10:57 | XMS_ITS ---
Author Organization [facility] Address [address] [place] [id number] Care Team Providers Care General Partner Name Role Phone Justin Estrada MD Primary Care Provider Celestinaa Bertrand Joyner Unavailable [phone] REASON FOR VISIT colon cancer screening Problems Problem Type SNOMED Code ICD Code Onset Dates Problem Status W/U Status Risk Notes Problem Diverticulosis o f large intestine without perforation or abscess without bleeding (K57.30) Active confirmed Encounters Encounter Location Date Provider Diagnosis [facility] [place] Out[facility] [address] [place] [phone] 06/29/2024 Bertrand Musa Colon cancer scree unique [...] * ASHIA BRYSONDOB:1970 ([age] yo M)Acc No.[id number]:06/29/2024 COLON WITH MAC Patient:?ASHIA BRYSON Provider:?Bertrand Musa MD :1970???Age:54 Y???Sex:Male John e:06/29/2024 Address: [place], [id number] Pcp:Justin Estrada MD Subjective: * Chief Complaints: * ???1. Colon cancer screening . * Medical History:? Objective: * Vitals:? Assessment: * Assessment: 1.?Colon cancer screening - Z12.11 (Primary)???2.?Colon polyps - K63.5???3.?Diverticulosis of large intestine without perforation or abscess without bleeding - K57.30???4.?Other hemorrhoids - K64.8??? Plan: * Treatment: * Procedure Codes:?10387 LESIO N REMOVAL COLONOSCOPY, Modifiers: PT , [...] MD Date:? 024 Generated for Kristen lopez/Emerson/eTransmitting on:?01/05/2025 10:57 AM EDT
== END 2025-01-05 11:14 | disposition home or self-care (01) ==
LOC: HO.HMCHD 10:31
PROVIDERS: PCP Internal Medicine; Visit Provider Internal Medicine
DX: E11.39 Type 2 diabetes mellitus with other diabetic ophthalmic complication (principal); I25.10 Atherosclerotic heart disease of native coronary artery without angina pectoris; Z98.890 Other specified postprocedural states; N18.32 Chronic kidney disease, stage 3b; I10 Essential (primary) hypertension

== ENCOUNTER → 2025-01-05 10:31 | Outpatient (BNVA) | payer MEDICARE, MEDICAID, SELFPAY | PROVIDERS: PCP Internal Medicine; Visit Provider Internal Medicine | DX: E11.22 Type 2 diabetes mellitus with diabetic chronic kidney disease (principal); E11.39 Type 2 diabetes mellitus with other diabetic ophthalmic complication; I12.9 Hypertensive chronic kidney disease with stage 1 through stage 4 chronic kidney disease, or unspecified chronic kidney disease; I49.8 Other specified cardiac arrhythmias; N18.32 Chronic kidney disease, stage 3b; I25.10 Atherosclerotic heart disease of native coronary artery without angina pectoris; E78.5 Hyperlipidemia, unspecified; R06.02 Shortness of breath; Z98.890 Other specified postprocedural states | CPT/HCPCS: 96127; 99202 ==

== ENCOUNTER 2025-01-07 06:35 | Outpatient (REF) | payer MEDICARE, MEDICAID, SELFPAY ==
--- OUTSIDE RECORDS SUMMARY | 2025-01-07 06:37 | XMS_ITS ---
Author Organization [facility] Address [address] [place] [id number] Care Team Providers Care Sergeant Of Officers Name Role Phone Justin Estrada MD Primary Care Provider Celestinaa Bertrand Joyner Unavailable [phone] REASON FOR VISIT colon cancer screening Problems Problem Type SNOMED Code ICD Code Onset Dates Problem Status W/U Status Risk Notes Problem Diverticulosis o f large intestine without perforation or abscess without bleeding (K57.30) Active confirmed Encounters Encounter Location Date Provider Diagnosis [facility] [place] Out[facility] [address] [place] [phone] 06/29/2024 Bertrand Musa Colon cancer scree unique [...] * ASHIA BRYSONDOB:1970 ([age] yo M)Acc No.[id number]:06/29/2024 COLON WITH MAC Patient:?ASHIA BRYSON Provider:?Bertrand Musa MD :1970???Age:54 Y???Sex:Male John e:06/29/2024 Address: [place], [id number] Pcp:Justin Estrada MD Subjective: * Chief Complaints: * ???1. Colon cancer screening . * Medical History:? Objective: * Vitals:? Assessment: * Assessment: 1.?Colon cancer screening - Z12.11 (Primary)???2.?Colon polyps - K63.5???3.?Diverticulosis of large intestine without perforation or abscess without bleeding - K57.30???4.?Other hemorrhoids - K64.8??? Plan: * Treatment: * Procedure Codes:?96914 LESIO N REMOVAL COLONOSCOPY, Modifiers: PT , [...] MD Date:? 024 Generated for Kristen lopez/Emerson/eTransmitting on:?01/07/2025 06:36 AM EDT
[2025-01-07 12:09] LABS: Estimated Average Glucose 171 mg/dL; Hemoglobin A1c % 7.6 % (<6.0)
[2025-01-07 13:27] LABS: TSH reflex Free T4 1.99 uIU/mL (0.32-4.0)
== END 2025-01-07 06:36 | disposition home or self-care (01) ==
LOC: HO.HMGCLDS 06:35
PROVIDERS: PCP Internal Medicine; Visit Provider Internal Medicine
DX: I25.10 Atherosclerotic heart disease of native coronary artery without angina pectoris (principal); R06.02 Shortness of breath; E11.22 Type 2 diabetes mellitus with diabetic chronic kidney disease; I49.8 Other specified cardiac arrhythmias
CPT/HCPCS: 36415; 83036; 84443

== ENCOUNTER 2025-06-15 15:42 | Emergency (ER) | payer MEDICARE, MEDICAID, SELFPAY ==
--- OUTSIDE RECORDS SUMMARY | 2024-06-29 03:30 | XMS_ITS ---
Author Organization [facility] Address [address] [place] [address] Care Team Providers Care Side Boss Name Role Phone Sean (RETIRED) Justin GARCIA Primary Care Provide Bertrand Hamilton Unavailable [phone] REASON FOR VISIT colon cancer screening Problems Problem Type SNOMED Code ICD Code Onset Dates Problem Status W/U Status Risk Notes Problem Diverticular disease of colon (051999326) Diverticulosis of large intestine without perforation or abscess without bleeding (K57.30) Active confirmed Encounters Encounter Location Date Provider Diagnosis [facility] [place] Outpatient [address], [place] [phone] 06/29/2024 Bertrand Musa Colon cancer scree unique [...] * ASHIA BRYSONDOB:1970 ([age] yo M)Acc No.[id number]:06/29/2024 COLON WITH MAC Patient: Bertha YOHANASHIA Provider: Kirk Musa MD :1970 A ge:54 Y S ex:Male Date:06/29/2024 Address: [address] [place], [place] Pcp:Justin Estrada (RETIRED )MD Subjective: * Chief [...] Date: 08/29/2023 Generated for Kristen lopez/Emerson/Víctorsmitting on: 08/15/2024 06:38 PM EST
--- NOTE | ~2025-06-15 | CT_ITS ---
CLINICAL HISTORY: R tongue base mass v swelling. no infectious sx. --- Additional Notes or Special Instructions: no dental pain. Non smoker no tobacco CT soft tissue neck without contrast Comparison: None provided Findings: The visualized intracranial contents are unremarkable. Mild asymmetric swelling of the right palatine tonsil with scattered calcifications. Salivary glands are unremarkable. No sialoliths. No suspicious thyroid nodules. Postsurgical changes of the right globe. No consolidation at the lung apices. No acute fracture or dislocation. IMPRESSION: No definite measurable tongue mass identified on this noncontrast examination. Mild asymmetric swelling of the right palatine tonsil. This document has been electronically signed by: Nanette Miller MD on 06/15/2025 19:45:09
[2025-06-15 15:44] VITALS: BP 134/99; PULSE 84; RESP 15; TEMP 36.1; O2SAT 97; BMI 27.7
--- NOTE | 2025-06-15 15:45 | ED.GENADULT ---
HPI - General Adult General Chief complaint: General Medical Stated complaint: swollen Tongue, sore throat Time Seen by Provider: 06/15/25 16:17 History of Present Illness ED Provider: Dhaval Hernandez MD HPI narrative: 55-year-old male nonsmoker diabetic with chronic kidney disease reports 3 days of subjective swelling in the right mouth tongue. No fever no chills denies sore throat or URI symptoms no prior ENT issues denies dental pain Related Data Previous Rx's ?Medication ?Instructions ?Recorded sodium zirconium cyclosilicate 5 5 g PO Q OTHER DAY #30 ea 10/04/24 gram oral powder packet (Lokelma) atorvastatin 40 mg tablet 40 mg PO BEDTIME #90 tabs 10/13/24 amlodipine 10 mg tablet 10 mg PO DAILY for blood pressure 05/04/25 #90 tabs aspirin 81 mg tablet,delayed 81 mg PO DAILY #90 tabs 05/04/25 release cholecalciferol (vitamin D3) 125 125 mcg PO DAILY #90 tabs 05/04/25 mcg (5,000 unit) tablet glipizide 5 mg tablet 5 mg PO DAILY #90 tabs 05/04/25 lisinopril 10 mg tablet 10 mg PO DAILY #90 tabs 05/04/25 FreeStyle Lite Strips (blood sugar #100 ea 06/15/25 diagnostic) amoxicillin 875 mg-potassium 1 tab PO BID 10 days #20 tabs 06/15/25 clavulanate 125 mg tablet Allergies Allergy/AdvReac Type Severity Reaction Status Date / Time No Known Allergies (No Known Allergy Verified 06/15/25 15:45 Allergies*) FORMERLY [facility] Past Medical History Medical History (Updated 06/16/25 @ 00:01 by Hermelindo Flores) Obesity (BMI 30-39.9) Obesity (BMI 35.0-39.9 without comorbidity) Bilateral hearing loss Vision loss of right eye Hyperlipidemia Accelerated junctional rhythm PAC (premature atrial contraction) Palpitations Diabetes Chronic renal insufficiency HTN (hypertension) Surgical History H/O colonoscopy History of placement of ear tubes History of repair of cleft lip Family History Family History Mother No problems noted. Father No problems noted. Social History Social History Household Members: Spouse Housing: House Are you a primary care advocate to a significant other at home: No Alcohol intake: never Patient Tobacco Use Status: Never used Tobacco e-Cigarette/Vaping Use: Never Used service: No Current occupational status: employed Cognitive needs: No Hearing needs: No Vision needs: Yes (rx glasses) Physical Exam ED Exam Exam: GENERAL: Well appearing. No apparent distress. Alert. HEAD/NECK: No visual trauma. EYES: Normal to inspection. No conjunctival erythema. No discharge. ENMT: Hearing grossly normal. External nose normal. Prominence of the right soft palate non fluctuant more firm than I would expect but does look consistent with an suggestive of ZIG ZAG STITCHER. No exudates. Patent oropharynx. Tongue is mobile. Neck is supple. RESPIRATORY: Respiratory effort normal. CARDIOVASCULAR: Additional details (Grossly well perfused). SKIN: No jaundice. NEUROLOGICAL: Alert. Moving all extremities x4. Additional details (No gross motor deficits. Normal tone. ). PSYCHIATRIC: Alert. Appearance appropriate for situation. Vital Signs: Vital Signs - 24 hr 06/15/25 15:44 06/15/25 17:03 06/15/25 18:42 Temperature 97 F 98.4 F 98.9 F Pulse Rate 84 40 L 57 Respiratory Rate 15 Blood Pressure 134/99 H 146/52 H 156/59 H Pulse Oximetry 97 96 96 Oxygen Delivery Method Room Air Room Air Room Air BMI result Body Mass Index 27.7 Course Course Course Narrative: Rapid medical examination performed in triage by Tara Gallardo PA-C: Patient is a 55 year old assigned male at presenting to the emergency department with difficulty swallowing and a tongue mass. Patient states that over the last 3 days he has had worsening right sided tongue mass that is making it difficult for him to swallow. Detailed physical exam and review of systems are deferred to the behavioral health clinician. Labs and swabs ordered. Patient placed back in the waiting room pending room availability and results. Medications Administered Discontinued Medications Generic Name Dose Route Start Last Admin Trade Name Freq PRN Reason Stop Dose Admin Acetaminophen 975 mg 06/15/25 17:15 06/15/25 17:33 Acetaminophen 325 Mg Tablet PO 06/15/25 17:16 975 mg ONCE ONE Administration Clindamycin HCl 450 mg 06/15/25 17:15 06/15/25 17:34 Clindamycin Hcl 150 Mg Capsule PO 06/15/25 17:16 450 mg ONCE ONE Administration Dexamethasone 4 mg 06/15/25 17:15 06/15/25 17:34 Dexamethasone 4 Mg Tablet PO 06/15/25 17:16 4 mg ONCE ONE Administration Lidocaine/Epinephrine 10 ml 06/15/25 18:03 06/15/25 18:35 Lidocaine Hcl 1%/Epi 1:100,000 10 Ml Vial INFILTRATI 06/15/25 18:04 10 ml ONCE ONE Administration Procedures Abscess I/D Site: other (Peritonsillar) Side (if applicable): right Sedation/analgesia: none Local Anesthetic: lidocaine 1% and with epi Amount of anesthesia used (mL): 3 Technique: needle aspiration Amount of fluid expressed (mL): 3 Sent for culture/gram staining?: Yes Irrigation: No Packing used?: none Complications: pain Medical Decision Making Medical Decision Making MDM Narrative: Medical Decision Makin-year-old male with subjective right throat/tongue swelling about 3 days. He actually denied fever or sore throat or classical URI symptoms but tested positive for strep and clinically looks like he has got a peritonsillar abscess. No hot potato voice stridor he is able to swallow and tolerate liquids and solids he tells me. Looks quite well he does have prominence of the right soft palate as seen in the photo above. Does not appear ill or toxic. CT neck without contrast given the CKD history. Plan for bedside drainage as long as he tolerates this oral antibiotics low-dose Decadron due to the diabetes. Successful procedure see above DC with Augmentin NSAIDs cold fluids follow up with the ENT if needed Preliminary Favored Differential Diagnosis: Head and neck cancer, ZIG ZAG STITCHER, strep throat, viral syndrome among additional considered etiologies Testing Interpreted Independently: ?See below for details Radiology or Lab testing Results Reviewed: ?See below for details Consults: ?See below for details Independent Historians/External Chart Reviews: ?See below for details Social Determinants of Health Impacting MDM/Planning: ?See below for details Lab Data 06/15/25 16:37 06/15/25 16:37 Labs: Lab Results 06/15/25 06/15/25 Range/Units 16:37 18:59 WBC 13.7 H (4.8-10.8) X10*3/uL RBC 4.69 (4.60-5.80) X10*6/uL Hgb 13.9 L (14.0-18.0) g/dl Hct 40.1 L (42.0-52.0) % MCV 85.5 (80.0-98.0) fL MCH 29.6 (27.0-33.0) pg MCHC 34.7 (31.0-36.0) g/dl RDW 11.9 (11.0-16.0) % Plt Count 213 (160-400) X10*3/uL MPV 10.0 (9.4-12.4) fL Immature Gran % (Auto) 1.0 H (0.0-0.4) % Neut % (Auto) 78.8 H (45-73) % Lymph % (Auto) 9.7 L (20-40) % [place] % (Auto) 7.2 (2-11) % Eos % (Auto) 2.6 (0-4) % Baso % (Auto) 0.7 (0-2) % Lymph # (Auto) 1.3 (1.2-4.9) X10*3/uL [place] # (Auto) 1.0 (0.1-1.2) X10*3/uL Eos # (Auto) 0.4 (0.0-0.4) X10*3/uL Baso # (Auto) 0.1 (0.0-0.2) X10*3/uL Abs Immat Gran (auto) 0.14 H (0.00-0.03) X10*3/uL Absolute Neuts (auto) 10.8 H (2.0-8.3) x10*3/uL Absolute Nucleated RBC 0.000 (0.0-0.012) X10*3/uL Nucleated RBC % (auto) 0.0 (0.0-0.2) /100WBC ESR 17 H (0-15) MM/HR Sodium 142 (135-145) mmol/L Potassium 4.1 (3.3-5.1) mmol/L Chloride 106 (96-108) mmol/L Carbon Dioxide 27 (22-29) mmol/L Anion Gap 13 (12-20) BUN 27 H (9-16) mg/dL Creatinine 1.75 H (0.5-1.4) mg/dL Estim Creat Clear Calc 50.3 Estimated GFR 40 Random Glucose 129 H (60-115) mg/dL Calcium 9.3 (8.4-10.2) mg/dL Magnesium 2.1 (1.6-2.6) mg/dL Total Bilirubin 0.8 (0.0-1.0) mg/dL AST 29 (5-37) U/L ALT 21 (0-40) U/L Alkaline Phosphatase 104 (39-117) U/L C-Reactive Protein 1.10 H (< or = 0.50) mg/dL Total Protein 7.0 (6.5-8.0) g/dL Albumin 4.3 (3.5-5.0) g/dL TSH 2.67 (0.32-4.0) uIU/mL Hold Red Top See Note S. pyogenes GrpA PING Positive A Positive A (Negative) Discharge Plan Discharge Clinical Impression: Abscess, peritonsillar Patient Disposition: Home, Self-Care Instructions: Peritonsillar Abscess (ED) Additional Instructions: DISCHARGE DIAGNOSES: Strep throat with peritonsillar abscess on the right side, drained in the emergency department HISTORY OF PRESENTATION: ?Throat discomfort EMERGENCY DEPARTMENT COURSE,TESTS, TREATMENTS: While in the ED today you had an aspiration or drainage of the abscess. You tested positive for strep. You were started on antibiotics you had a low dose of steroid to bring down the inflammation DISCHARGE MEDICATIONS: ?[We have made no changes to your regular medication regimen] we have added antibiotic see the prescription attached. Take Tylenol as needed [id number] FOLLOW-UP: ?Call your primary or general physician soon as possible to discuss your symptoms, your ED visit and to discuss follow up plans Call ENT only if you are not improving after 48 or 72 hours for follow up Call ENT surgeons of [facility] if needed for follow up [place] telephone number of their offices [phone] INSTRUCTIONS ?& RETURN PRECAUTIONS: If any symptoms change first call your primary physician, if it is after-hours your primary doctors office should have a provider lead solutions architect you can speak with. If the symptoms are severe or very concerning to you then call 911 or return to the ED. If you develop severe worsening sore throat difficulty swallowing breathing talking immediately return back to the emergency department Drink cold fluids take Tylenol as needed Dhaval Hernandez MD Emergency Physician [facility] Prescriptions: New amoxicillin-pot clavulanate 875-125 mg tablet 1 tab PO BID 10 Days Qty: 20 0RF No Action Lokelma 5 gram powder in packet 5 g PO Q OTHER DAY Qty: 30 2RF (DME) FreeStyle Lite Strips Strip See Rx Instructions .Route Qty: 100 3RF Rx Instructions: once daily and as needed atorvastatin 40 mg tablet 40 mg PO BEDTIME Qty: 90 3RF Rx Instructions: dose increase amlodipine 10 mg tablet 10 mg PO DAILY Qty: 90 1RF aspirin 81 mg tablet,delayed release (DR/EC) 81 mg PO DAILY Qty: 90 3RF cholecalciferol (vitamin D3) 125 mcg (5,000 unit) tablet 125 mcg PO DAILY Qty: 90 3RF glipizide 5 mg tablet 5 mg PO DAILY Qty: 90 1RF lisinopril 10 mg tablet 10 mg PO DAILY Qty: 90 1RF Interventions: ED Discharge Assessment Last Done: 06/15/25 19:20 Discharge Date/Time: 06/15/25 19:33 Print Language: Chadian
[2025-06-15 16:42] LABS: MANUAL DIFF FLAG NO
[2025-06-15 16:46] LABS: Hematocrit 40.1 % (42.0-52.0); Hemoglobin 13.9 g/dl (14.0-18.0); Imm Gran Abs Auto 0.14 X10*3/uL (0.00-0.03); Imm Gran Pct Auto 1.0 % (0.0-0.4); Lymphocytes Absolute Auto 1.3 X10*3/uL (1.2-4.9); Mean Corpuscular HGB Conc 34.7 g/dl (31.0-36.0); Mean Corpuscular Hemoglobin 29.6 pg (27.0-33.0); Mean Corpuscular Volume 85.5 fL (80.0-98.0); NRBC Abs Auto 0.000 X10*3/uL (0.0-0.012); NRBC Pct Auto 0.0 /100WBC (0.0-0.2); Platelet Count 213 X10*3/uL (160-400); Red Blood Count 4.69 X10*6/uL (4.60-5.80); White Blood Count 13.7 X10*3/uL (4.8-10.8)
[2025-06-15 16:56] LABS: IDNOW Serial# 55D5AD1C; Strep A Nucleic Acid Positive (Negative)
[2025-06-15 16:59] LABS: Alanine Aminotransferase 21 U/L (0-40); Albumin Level 4.3 g/dL (3.5-5.0); Alkaline Phosphatase 104 U/L (39-117); Anion Gap 13 (12-20); Aspartate Amino Transferase 29 U/L (5-37); Blood Urea Nitrogen 27 mg/dL (9-16); Calcium 9.3 mg/dL (8.4-10.2); Carbon Dioxide 27 mmol/L (22-29); Chloride 106 mmol/L (96-108); Creatinine Clr Calc Pharmacy 50.3; Estimated Glomerular Filt Rate 40; Magnesium 2.1 mg/dL (1.6-2.6); Potassium 4.1 mmol/L (3.3-5.1); Sodium 142 mmol/L (135-145); Total Protein 7.0 g/dL (6.5-8.0)
[2025-06-15 17:03] VITALS: BP 146/52; PULSE 40; TEMP 36.9; O2SAT 96
--- NOTE | 2025-06-15 17:10 | ECG_ITS ---
Test Reason : bradycardia Blood Pressure : */* mmHG Vent. Rate : 74 BPM Atrial Rate : 74 BPM P-R Int : 178 ms QRS Dur : 62 ms QT Int : 362 ms P-R-T Axes : 48 14 40 degrees QTcB Int : 401 ms Sinus rhythm with Premature atrial complexes in a pattern of bigeminy Septal infarct (cited on or before 19-Oct-2019) Abnormal ECG When compared with ECG of 19-Oct-2019 06:52, Premature atrial complexes are now Present Referred By: Dhaval Hernandez Electronically Signed By: Kayden Martínez
[2025-06-15 17:27] LABS: Erythrocyte Sedimentation Rate 17 MM/HR (0-15)
[2025-06-15 17:51] LABS: Thyroid Stimulating Hormone 2.67 uIU/mL (0.32-4.0)
[2025-06-15] MEDS: Lidocaine HCl 1%/Epi 1:100,000 10 ML VIAL INFILTRATI (18:35)
--- OUTSIDE RECORDS SUMMARY | 2025-06-15 18:39 | XMS_ITS | Patient Health Record ---
Author Organization [facility] Address [address] [place] [address] Care Team Providers Care Lead Coater Name Role Phone Sean (RETIRED) Justin GARCIA Primary Care Provide r Bertrand Youssef Unavailable [phone] Allergies No Known Allergies Results Component Value Reference Range Notes Glucose, Whole Blood Reviewed date:06/29/2024 02:22:00 PM Interpretation: Performing Lab:[facility], [address] [place] [phone] Notes/Report: Glucose, Whole Blood 166 60-115 mg/dL METER # : [id number] Pathology (Not yet reviewed by provider) Interpretation: Performing Lab:[facility], [address] [place] [phone] Notes/Report: Reason For Referral No Information Medications Medication SIG (Take, Route, Frequency, Duration) Notes Start Date End Date Status Atorvastatin Calcium 20 MG 1 tablet Oral ly Once a day; Duration: 30 day(s) Active glipiZIDE 5 MG 1 tablet Orally Once a day; Duration: 30 day(s) Active amLODIPine Besylate 10 MG 1 tablet Orall y Once a day Active Lisinopril 10 MG 1 tablet Orally Once a day Active Vitamin D-3 5000 UNIT 1 tablet Orally On ce a day; Duration: 30 day(s) Active Immunizations Vaccine Route Administration [...] Status Risk Notes Problem Colon cancer screening (452599199) Colon cancer screening (Z12.11) Active confirmed Problem Screening for malignant neoplasm of colon (544459935) Encounter for screening for malignant neoplasm of colon (Z12.11) Active confirmed Problem Diverticular disease of colon (704835148) Diverticulosis of large intestine without perforation or abscess without bleeding (K57.30) Active confirmed Problem Preprocedural examination (464993850879312) Preprocedural examination (Z01.818) Active confirmed Problem Family history of polyp of colon (576679685) Family history of colon polyps, unspecified (Z83.719) Active confirmed Encounters Encounter Location Date Provider Diagnosis [facility] Outpatient [address] [place] [id number] 06/29/2024 Bertrand Musa Colon cancer scree unique [...] hemorrhoids (ICD-10 - K64.8) Plan Of Treatment Pending Test Test Name Order Date Pathology 06/29/2024 Future Test Test Name Order Date COLONOSCOPY 11/04/2018 COLONOSCOPY 03/02/2024 Insurance Providers Payer Name Payer Address Payer Phone Subscriber Number Group Number Insured Name Patient Relationship to Insured Coverage Start Date Coverage End Date MEDICARE OF [place] [address] [place] [phone] [id number] ASHIA BRYSON Self - patient is the insured MEDICAID OF [facility] [address] [place] [address] [phone] [id number] ASHIA BRYSON Self - patient is the insured Medical (General) History Medical History History ICD Code NIDDM Hypertension Denies [place],CVA,Lung disease,renal disease Hyperlipdemia CKD stage 3 Colonoscopy 12/2018 with a small tubular adenoma Wearing a heart monitor at the 03/02/2024 OV for SOB and irregular heartbeat Blind in right eye Surgical History Surgery Date(Month/Year) Retinal laser 2009 Cleft lip repair Tubes in ears
--- OUTSIDE RECORDS SUMMARY | 2025-06-15 18:39 | XMS_ITS | Data Portability ---
Author Organization [place] - [facility], Allergy Address [address] [place] [phone] Care Team Providers Care Personal Banking Advisor Name Role Phone FAUSTO HOROWITZ Primary Care [...] e otitis externa of bilatera l ears [id number] 36863 Completed 201703/11/2024 Other infectiv e otitis externa, bilatera l; Note: Date Diagnose d: 05/28/20 18 2:18 PM (H60.393 ) Not Available [facility] 4 02:18:42 Sensorin eural hearing loss of bilatera l ears 870885356 Active 2020 Sensorin eural hearing loss, bilatera l; Note: Date Diagnose d: 1 1:52 PM (H90.3) Not Available [facility] 4 02:18:53 Impacted cerumen of bilatera l ears 73666501652 07520 Active 2020 Impacted cerumen, bilatera l; Note: Date Diagnose d: 1 1:52 PM (H61.23) Not Available [facility] 4 02:18:37 Problem Notes None recorded. Procedures Surgical History Date Name Laterality Status Provider Name and Address Organization Details Recorded Time 4 Cerumen removal without microscope bilat completed KATHY DELACRUZ PA-C [address] [place] [address], [phone], [facility] 07/04/2024 14:34:27 Imaging Results None recorded. [...] eye drops 2017 active Medicatio n ID: [id number] Du ration Value: 14 Prescrib ed By Name: Justo Keene Name: Ciloxan S end Method: E-Prescri bed Subs Allowed: subs OK Specia l Instructi on: Instill 4 drops twice a day into the affected ear. Medi cationGen ericName: Ciloxan Not Available Not Available Not Available ciproflox acin 500 mg tablet 1 tablet by mouth 07/15 completed Medicatio n ID: [id number] Du ration Value: 14 Prescrib ed By Name: CRYS Santana Name: ciproflox acin HCl Send Method: E-Prescri bed Subs Allowed: subs OK Medica tionGener icName: ciproflox acin HCl Not Available Not Available Not Available amlodipin e 10 mg tablet active Not Available Not Available Not Available metformin 1,000 mg tablet 07/15 completed Medicatio n ID: [id number] Du ration Value: 30 Brand Name: metformin Send Method: E-Prescri bed Subs Allowed: subs OK Medica tionGener icName: metformin Not Available Not Available Not Available lisinopri l 40 mg tablet 09/24 completed Medicatio n ID: [id number] Du ration Value: 30 Brand Name: lisinopri l Send Method: E-Prescri bed Subs Allowed: subs OK Medica tionGener icName: lisinopri l Not Available Not Available Not Available glipizide 5 mg tablet active Not Available Not Available Not Available TobraDex 0.3 %-0.1 % eye drops,[facility] pension 2017 active Medicatio n ID: [id number] Du ration Value: 14 Prescrib ed By [...] Updated DateTime 07/04/2024 165.1 cm 30.8 kg/m2 46521.59 g Adalberto Robles [place] - [facility] 07/04/2024 13:37:43 Social History None recorded. Functional Status None recorded. Mental Status None recorded. Family History Nothing Reported. Medical History No medical history recorded. Past Encounters Encounter ID Performer Location Encounter Start Date Encounter Closed Date Diagnosis/Indication Diagnosis SNOMED-CT Code Diagnosis ICD10 Code Diagnosis IMO Codes Diagnosis Note [id number] KATHY DELACRUZ PA-C [facility] [address] [address] 07/04/2024 13:21:57 07/04/2024 14:30:39 Impacted cerumen of bilateral ears [id number] 591116 H61.23 Sensorineu ral hearing loss of bilateral ears 296761967 H90.3 Health Concerns Section Related Observation LastModified by Organization Detai ls LastModified Time None Recorded Concern Status LastModified by Organization Details LastModified Time None Recorded Advance Directives Directive None Recorded Payers Insurance Date Sequence Insurance Name Policy Number Policy Correa Covered Member ID Correa Member ID Guarantor Name 07/04/2024 2 [place] Juan José Muñiz [id number] Juan José Muñiz 07/04/2024 1 [place] [employer] Juan José Muñiz [id number] Juan José Muñiz Notes Date Note Type Note Provider Name and Address Organization Details Recorded Time 07/04/2024 text/html ROS as noted in the HPI 54 year old male with profound hearing loss and bilateral amplification presents for cerumen removal. Reports no change in hearing. Amplification dispensed from the [facility], and patient feels the aids are working well. Denies otalgia, otorrhea, or tinnitus. Occasional Qtip use in external ear. TSERING MAHAJAN MD [address] [place] [address], [phone], [facility] - [facility] 07/04/2024 15:40:09
[2025-06-15 18:42] VITALS: BP 156/59; PULSE 57; TEMP 37.2; O2SAT 96
[2025-06-15 19:11] LABS: IDNOW Serial# 55D5AD1C; Strep A Nucleic Acid Positive (Negative)
[2025-06-15 19:20] VITALS: BP 179/93; PULSE 71; RESP 20; TEMP 37; O2SAT 95
== END 2025-06-15 19:33 | disposition home or self-care (01) ==
PROVIDERS: Physician Assistant Medical; Emergency Provider Emergency Medicine; PCP Physician Assistant Medical
DX: J36 Peritonsillar abscess (principal); B95.0 Streptococcus, group A, as the cause of diseases classified elsewhere; R22.0 Localized swelling, mass and lump, head; E11.22 Type 2 diabetes mellitus with diabetic chronic kidney disease; I12.9 Hypertensive chronic kidney disease with stage 1 through stage 4 chronic kidney disease, or unspecified chronic kidney disease; N18.9 Chronic kidney disease, unspecified; Z03.818 Encounter for observation for suspected exposure to other biological agents ruled out
CPT/HCPCS: 36415; 42700; 70490; 80053; 83735; 84443; 85025; 85652; 86140; 87070; 87147; 87651; 93005; 99284; J2004; J8540

== ENCOUNTER → 2025-06-15 17:10 | Outpatient (BNV) | payer MEDICARE, MEDICAID, SELFPAY | PROVIDERS: Emergency Provider Emergency Medicine; PCP Physician Assistant Medical; Visit Provider Internal Medicine Cardiovascular Disease | DX: I49.1 Atrial premature depolarization (principal); I25.2 Old myocardial infarction | CPT/HCPCS: 93010 ==

== ENCOUNTER → 2025-06-15 17:11 | Outpatient (BNV) | payer MEDICARE, MEDICAID, SELFPAY | PROVIDERS: Emergency Provider Emergency Medicine; PCP Physician Assistant Medical; Visit Provider Student in an Organized Health Care Education/Training Program | DX: J35.1 Hypertrophy of tonsils (principal) | CPT/HCPCS: 70490 ==

== ENCOUNTER 2025-06-20 09:35 | Outpatient (REF) | payer MEDICARE, MEDICAID, SELFPAY ==
--- OUTSIDE RECORDS SUMMARY | 2024-06-29 03:30 | XMS_ITS ---
Author Organization [facility] Address [address] [place] [address] Care Team Providers Care Master Carpenter Name Role Phone Sean (RETIRED) Justin GARCIA Primary Care Provide Bertrand Hamilton Unavailable [phone] REASON FOR VISIT colon cancer screening Problems Problem Type SNOMED Code ICD Code Onset Dates Problem Status W/U Status Risk Notes Problem Diverticular disease of colon (807610344) Diverticulosis of large intestine without perforation or abscess without bleeding (K57.30) Active confirmed Encounters Encounter Location Date Provider Diagnosis [facility] Outpatient [address], [place] [id number] 06/29/2024 Bertrand Musa Colon cancer scree unique Z12.11 ; Colon polyps K63.5 ; Diverticulosis of large intestine without perforation or abscess without bleeding K57.30 and Other hemorrhoids K64.8 Assessments Encounter Date Diagnosis (ICD Code) Assessment Notes Treatment Notes Treatment Clinical Notes Section Notes 06/29/2024 Colon cancer screening (ICD-10 - Z12.11) 06/29/2024 Colon polyps (ICD-10 - K63.5) 06/29/2024 Diverticulosis of large intestine without perforation or abscess without bleeding (ICD-10 - K57.30) 06/29/2024 Other hemorrhoids (ICD-10 - K64.8) Plan Of Treatment No Information Progress Notes * ASHIA BRYSONDOB:1970 ([age] yo M)Acc No.[id number]:06/29/2024 COLON WITH MAC Patient: Bertha YOHANASHIA Provider: Kirk Musa MD :1970 A ge:54 Y S ex:Male Date:06/29/2024 Address: [place], [id number] Pcp:Justin Estrada (RETIRED )MD Subjective: * Chief Complaints: * 1 . Colon cancer screening. * Medical History: Objective: * Vitals: Assessment: * Assessment: 1. C olon cancer screening - Z12.11 (Primary) 2 . C olon polyps - K63.5? 3. D iverticulosis of large intestine without perforation or abscess without bleeding - K57.30 4 . O ther hemorrhoids - K64.8 Plan: * Treatment: * Procedure Codes: 4 5385 LESION REMOVAL COLONOSCOPY, Modifiers: PT , 0529F INTRVL 3+YRS PTS CLNSCP DOCD, 0528F RCMND FLW-UP 10 YRS DOCD, Modifiers: 1P * * The named appointment provid er may or may not be the originator of this progress note, and it is not deemed complete until electronically signed by the appointment provider. Sign off status: Pending * Provider: Kirk Musa MD Date: 08/29/2023 Generated for Kristen lopez/Emerson/Víctorsmitting on: 08/20/2024 10:39 AM EST
--- OUTSIDE RECORDS SUMMARY | 2025-06-20 10:39 | XMS_ITS | Patient Health Record ---
Author Organization [facility] Address [address] [place] [address] Care Team Providers Care Licensed Pharmacist Name Role Phone Sean (RETIRED) Justin GARCIA Primary Care Provide r Bertrand Youssef Unavailable [phone] Allergies No Known Allergies Results Component Value Reference Range Notes Glucose, Whole Blood Reviewed date:06/29/2024 02:22:00 PM Interpretation: Performing Lab:[facility], [address] [place] [phone] Notes/Report: Glucose, Whole Blood 166 60-115 mg/dL METER # : [id number] Pathology (Not yet reviewed by provider) Interpretation: Performing Lab:[facility], [address] [place] [phone] Notes/Report: Reason For Referral No Information Medications [...] Status Risk Notes Problem Colon cancer screening (834891143) Colon cancer screening (Z12.11) Active confirmed Problem Screening for malignant neoplasm of colon (425567897) Encounter for screening for malignant neoplasm of colon (Z12.11) Active confirmed Problem Diverticular disease of colon (697724588) Diverticulosis of large intestine without perforation or abscess without bleeding (K57.30) Active confirmed Problem Preprocedural examination (898446201411802) Preprocedural examination (Z01.818) Active confirmed Problem Family history of polyp of colon (390419235) Family history of colon polyps, unspecified (Z83.719) Active confirmed Encounters Encounter Location Date Provider Diagnosis [facility] [place] [address] [place] [id number] 06/29/2024 Bertrand Musa Colon cancer scree unique [...] OF [place] [address] [place] [address] [phone] [id number] ASHIA BRYSON Self - patient is the insured MEDICAID OF [facility] [address] [place] [address] [phone] [id number] ASHIA BRYSON Self - patient is the [...]
--- OUTSIDE RECORDS SUMMARY | 2025-06-20 10:39 | XMS_ITS | Data Portability ---
Author Organization [place] - [facility], [facility] Address [address] [place] [phone] Care Team Providers Care Laboratory Machinist Name Role Phone FAUSTO HOROWITZ Primary Care Provider [phone] Assessment Encounter Date Assessment Date Assessment LastModified [...] e otitis externa of bilatera l ears [id number] 15342 Completed 201703/11/2024 Other infectiv e otitis externa, bilatera l; Note: Date Diagnose d: 05/28/20 18 2:18 PM (H60.393 ) Not Available [facility] 08/02/202 4 02:18:42 Sensorin eural hearing loss of bilatera l ears 808385375 Active 2020 Sensorin eural hearing loss, bilatera l; Note: Date Diagnose d: 1 1:52 PM (H90.3) Not Available [facility] 4 02:18:53 Impacted cerumen of bilatera l ears 54479085531 44162 Active 2020 Impacted cerumen, bilatera l; Note: Date Diagnose d: 1 1:52 PM (H61.23) Not Available [facility] 4 02:18:37 Problem Notes None recorded. Procedures Surgical History Date Name Laterality Status Provider Name and Address Organization Details Recorded Time 4 Cerumen removal without microscope bilat completed KATHY DELACRUZ PA-C [address] [place] [address], [phone], [facility] 07/04/2024 14:34:27 Imaging Results None recorded. [...] eye drops 2017 active Medicatio n ID: [id number] Du ration Value: 14 Prescrib ed By Name: Justo Keene Name: Ciloxan S end Method: E-Prescri bed Subs Allowed: subs [place] Specia l Instructi on: Instill 4 drops twice a day into the affected ear. Medi cationGen ericName: Ciloxan Not Available Not Available Not Available ciproflox acin 500 mg tablet 1 tablet by mouth 07/15 completed Medicatio n ID: [id number] Du ration Value: 14 Prescrib ed By Name: CRYS Santana Name: ciproflox acin HCl Send Method: E-Prescri bed Subs Allowed: subs OK Medica tionGener icName: ciproflox acin HCl Not Available Not Available Not Available amlodipin e 10 mg tablet active Not Available Not Available Not Available metformin 1,000 mg tablet 07/15 completed Medicatio n ID: [id number] Du ration Value: 30 Brand Name: metformin Send Method: E-Prescri bed Subs Allowed: subs OK Medica tionGener icName: metformin Not Available Not Available Not Available lisinopri l 40 mg tablet 09/24 completed Medicatio n ID: [id number] Du ration Value: 30 Brand Name: lisinopri l Send Method: E-Prescri bed Subs Allowed: subs OK Medica tionGener icName: lisinopri l Not Available Not Available Not Available glipizide 5 mg tablet active Not Available Not Available Not Available TobraDex 0.3 %-0.1 % eye drops,[facility] pension 2017 active Medicatio n ID: [id number] Du ration Value: 14 Prescrib ed By [...] Updated DateTime 07/04/2024 165.1 cm 30.8 kg/m2 41710.59 g Adalberto Robles [place] - [facility] 07/04/2024 13:37:43 Social History None recorded. Functional Status None recorded. Mental Status None recorded. Family History Nothing Reported. Medical History No medical history recorded. Past Encounters Encounter ID Performer Location Encounter Start Date Encounter Closed Date Diagnosis/Indication Diagnosis SNOMED-CT Code Diagnosis ICD10 Code Diagnosis IMO Codes Diagnosis Note [id number] KATHY DELACRUZ PA-C [facility] [address] [address] 07/04/2024 13:21:57 07/04/2024 14:30:39 Impacted cerumen of bilateral ears [id number] 388400 H61.23 Sensorineu ral hearing loss of bilateral ears 732794719 H90.3 Health Concerns Section Related Observation LastModified by Organization Detai ls LastModified Time None Recorded Concern Status LastModified by Organization Details LastModified Time None Recorded Advance Directives Directive None Recorded Payers Insurance Date Sequence Insurance Name Policy Number Policy Correa Covered Member ID Correa Member ID Guarantor Name 07/04/2024 2 [place] [facility] Juan José Muñiz [id number] Juan José Muñiz 07/04/2024 1 [place] [employer] Juan José Muñiz [id number] Juan José Muñiz Notes Date Note Type Note Provider Name and Address Organization Details Recorded Time 07/04/2024 text/html ROS as noted in the HPI 54 year old male with profound hearing loss and bilateral amplification presents for cerumen removal. Reports no change in hearing. Amplification dispensed from the [facility], and patient feels the aids are working well. Denies otalgia, otorrhea, or tinnitus. Occasional Qtip use in external ear. TSERING MAHAJAN MD [address] [place] [address], [phone], [facility] - [facility] 07/04/2024 15:40:09
[2025-06-20 12:15] LABS: Anion Gap 13 (12-20); Blood Urea Nitrogen 33 mg/dL (9-16); Calcium 9.6 mg/dL (8.4-10.2); Carbon Dioxide 28 mmol/L (22-29); Chloride 102 mmol/L (96-108); Estimated Glomerular Filt Rate 47; Potassium 5.0 mmol/L (3.3-5.1); Sodium 138 mmol/L (135-145)
== END 2025-06-20 09:36 | disposition home or self-care (01) ==
LOC: HO.10HDL 09:35
PROVIDERS: Physician Assistant Medical; Visit Provider Internal Medicine Hypertension Specialist
DX: E11.22 Type 2 diabetes mellitus with diabetic chronic kidney disease (principal); E11.39 Type 2 diabetes mellitus with other diabetic ophthalmic complication; N18.30 Chronic kidney disease, stage 3 unspecified; J36 Peritonsillar abscess; Z79.899 Other long term (current) drug therapy
CPT/HCPCS: 36415; 80048; 83036; 96127

== ENCOUNTER 2025-06-27 09:10 | Outpatient (AMB) | payer MEDICARE, MEDICAID, SELFPAY ==
[2025-06-27 09:27] VITALS: BP 148/72; PULSE 56; O2SAT 98; BMI 28.2
--- NOTE | 2025-06-27 09:27 | HO.NEPHOV ---
Vital Signs 06/27/25 09:27 06/27/25 09:37 Height 5 ft 9 in Weight 191 lb BMI 28.2 BP 148/72 H 140/50 H Blood Pressure Location Lt brachial Lt brachial Position Sitting Sitting Pulse 56 Pulse Source Pulse Oximeter Pulse Oximetry (%) 98 Oxygen Delivery Method Room Air Intake Visit Reasons: 6 MO FU Capacitor Assembler Required: No Accompanied by: Self / Same As Patient Allergies No Known Allergies (No Known Allergies*) Allergy (Verified 06/27/25 09:29) Medication List - Last Reconciled 06/27/25 by Juaquin Ozuna MD amlodipine 10 mg PO DAILY aspirin 81 mg PO DAILY atorvastatin 40 mg PO BEDTIME cholecalciferol (vitamin D3) 125 mcg PO DAILY FreeStyle Lite Strips (blood sugar diagnostic) once daily and as needed NS glipizide 5 mg PO DAILY lisinopril 10 mg PO DAILY sodium zirconium cyclosilicate (Lokelma) 5 grams PO Q OTHER DAY HPI Comments Details: Juan José is a middle-aged man with a history of diabetes mellitus and CKD. From renal standpoint is doing very well. He has CKD with a baseline creatinine 1.6 mg/dL. Juan José has a history of diabetes mellitus for more than 10 years complicated by retinopathy. 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 History of hypertension for more than 10 years which has been well controlled as well. Renal ultrasonogram showed a large postvoid residual back in 2018. However repeat renal ultrasonogram was unremarkable in 2020. In 2019 lisinopril was decreased by 50% due to elevation in creatinine and relatively low blood pressure. Since then serum creatinine stable and blood pressure has been well controlled as well. Today he has no cough HAs shortness of breath on exertion. Undergoing cardiac evaluation 06/28/24 Waiting for colonscopy tomorrow and CTA of coronaries next month 10/04/24 Doing well No new issues 12/20/24 54-year-old male presenting for follow-up related to chronic kidney disease and essential hypertension. His kidney function has shown an improvement, with a GFR increase from 49% to 53% since October. This suggests a stabilization of his renal condition, attributed partly to the ongoing lisinopril regimen which addresses both hypertension and proteinuria. He complies with dietary adjustments, especially concerning potassium levels, by taking a supplemental binding agent every other day. Of note is a history of cardiac catheterization indicating mostly benign findings, with noted instances of near regular heartbeats and occasional mild shortness of breath. An upcoming pulmonary function test has been scheduled to further evaluate these respiratory symptoms. Blood pressure management remains a priority, although the patient notes a prior reading was higher, possibly due to transient stress or activity levels at the time of measurement. 06/27/25 The patient is a 55-year-old male with CKD and hyperkalemia. The patient has been managing hyperkalemia with Lokelma, initially taking it every other day, which has now been adjusted to twice a week due to stable potassium levels. His kidney function remains stable, and he has been advised to maintain hydration and reduce salt intake. The patient also reports a recent infection for which he completed a course of antibiotics, and he is feeling better now. He has experienced a weight loss of 5 pounds since the last visit, which is considered positive. His blood pressure was recorded at 146/90 mmHg, indicating hypertension, and efforts are being made to manage it better. Additionally, the patient mentioned concerns about his blood sugar levels, which were noted to be slightly elevated during a recent emergency room visit. [facility] Medical History Obesity (BMI 30-39.9) Obesity (BMI 35.0-39.9 without comorbidity) Bilateral hearing loss Vision loss of right eye Hyperlipidemia Accelerated junctional rhythm PAC (premature atrial contraction) Palpitations Diabetes Chronic renal insufficiency HTN (hypertension) Surgical History H/O colonoscopy (~06/29/24) History of placement of ear tubes History of repair of cleft lip Family History Mother No problems noted. Father No problems noted. Social History Household Members: Spouse Housing: House Are you a primary cardiac care nurse to a significant other at home: No Alcohol intake: never Patient Tobacco Use Status: Never used Tobacco e-Cigarette/Vaping Use: Never Used service: No Current occupational status: employed Cognitive needs: No Hearing needs: No Vision needs: Yes (rx glasses) Physical Exam Vital Signs: Last Vital Signs Pulse 56 06/27/25 09:27 BP 148/72 H 06/27/25 09:27 Pulse Ox 98 06/27/25 09:27 Oxygen Delivery Method Room Air 06/27/25 09:27 BMI result Body Mass Index 28.2 Comfortable Neck supple no JVD. Lungs entry equal no rales. Heart S1-S2 heard no gallop or rub. Abdomen soft nontender. Neuro alert awake oriented. No asterixis. Extremities no edema. Results Reviewed Nephrology Results: Hgb, (14.0-18.0) 13.9 g/dl L 06/15/25 WBC, (4.8-10.8) 13.7 X10*3/uL H 06/15/25 Plt Count, (160-400) 213 X10*3/uL 06/15/25 Sodium, (135-145) 138 mmol/L 06/20/25 Potassium, (3.3-5.1) 5.0 mmol/L Δ 06/20/25 Chloride, (96-108) 102 mmol/L 06/20/25 Carbon Dioxide, (22-29) 28 mmol/L 06/20/25 BUN, (9-16) 33 mg/dL H 06/20/25 Creatinine, (0.5-1.4) 1.54 mg/dL H 06/20/25 Calcium, (8.4-10.2) 9.6 mg/dL 06/20/25 Renal US 11/13/20 Assessment & Plan Assessment & Plan (1) CKD (chronic kidney disease) stage 3, GFR 30-59 ml/min: Code(s): N18.30 - Chronic kidney disease, stage 3 unspecified Category: Medical Qualifiers: Chronic kidney disease stage 3 subtype: stage 3b (GFR 30-44) Qualified Code(s): N18.32 - Chronic kidney disease, stage 3b Plan: . CKD 3 in a setting of longstanding diabetes mellitus hypertension. Renal function stable at this time. Goal is to slow the proximal disease. Continue with Shravan inhibitor for renal protection. He will benefit from an SGLT 2 inhibitor. . (2) HTN (hypertension): Comment: BP today was 140/80 Code(s): I10 - Essential (primary) hypertension Category: Medical Qualifiers: Hypertension type: primary hypertension Qualified Code(s): I10 - Essential (primary) hypertension Plan: Blood pressure is acceptable Goal < 130/80 Continue with current antihypertensive regimen. Discussed low-sodium diet. (3) Diabetes mellitus with chronic kidney disease: Code(s): E11.22 - Type 2 diabetes mellitus with diabetic chronic kidney disease Category: Medical Qualifiers: Diabetes mellitus middle or intermediate school principal insulin use: without detention use Diabetes mellitus type: type 2 Plan: Goal is to maintain A1c less than 7%. Again we discuss the importance of diet. (4) Hyperkalemia: Code(s): E87.5 - Hyperkalemia Category: Medical Plan: History of hyperkalemia in the setting of chronic kidney disease and continues of Shravan inhibitor. potassium potassium has improved. He should stay on low-potassium diet Decrease Lokelma to 5 gm PO 2 x week Orders: Orders Basic Metabolic Panel 6 Months E11.22 - Type 2 diabetes mellitus with diabetic chronic kidney disease, I10 - Essential (primary) hypertension Medications: Changed From sodium zirconium cyclosilicate (Lokelma) 5 grams PO Q OTHER DAY 30 ea 2RF To sodium zirconium cyclosilicate (Lokelma) 5 grams PO .two times a week 30 ea 2RF Coding Level of Care Code Est Pt Level 4 (15307) Diagnoses Stage 3b chronic kidney disease N18.32 Chronic kidney disease stage 3 subtype: stage 3b (GFR 30-44) Primary hypertension I10 Hypertension type: primary hypertension Diabetes mellitus with chronic kidney disease E11.22 Diabetes mellitus detention insulin use: without middle or intermediate school principal use Diabetes mellitus type: type 2 Hyperkalemia E87.5
[2025-06-27 09:37] VITALS: BP 140/50
== END 2025-06-27 09:41 | disposition home or self-care (01) ==
LOC: HO.HKA 09:11
PROVIDERS: PCP Internal Medicine; Visit Provider Internal Medicine Hypertension Specialist
DX: E11.22 Type 2 diabetes mellitus with diabetic chronic kidney disease (principal); N18.32 Chronic kidney disease, stage 3b; I10 Essential (primary) hypertension; E87.5 Hyperkalemia
CPT/HCPCS: 99214

== ENCOUNTER → 2025-06-27 09:10 | Outpatient (BNVA) | payer MEDICARE, MEDICAID, SELFPAY | PROVIDERS: PCP Internal Medicine; Visit Provider Internal Medicine Hypertension Specialist | DX: I12.9 Hypertensive chronic kidney disease with stage 1 through stage 4 chronic kidney disease, or unspecified chronic kidney disease (principal); E11.22 Type 2 diabetes mellitus with diabetic chronic kidney disease; N18.32 Chronic kidney disease, stage 3b; Z79.84 Long term (current) use of oral hypoglycemic drugs; E87.5 Hyperkalemia; Z79.82 Long term (current) use of aspirin | CPT/HCPCS: 99212 ==